=== PATIENT | female | born 1990 | race Caucasian/White ===

== ENCOUNTER 2016-05-20 11:47 | Observation (INO) | payer OTHER ==
[2016-05-20] MEDS ORDERED: ALBUTEROL NEBULIZED 2.5 MG/3 ML INHALATION STA ×2 (12:15→13:40)
[2016-05-20] MEDS ORDERED: IPRATROPIUM 0.5 MG/2.5 ML NEBU INHALATION STA ×2 (12:15→13:40)
[2016-05-20] MEDS ORDERED: SODIUM CHLORIDE 0.9% 1,000 ML IV STA (12:15)
[2016-05-20] MEDS ORDERED: methylPREDNISolone SOD SUCCI 125 MG/2 ML VIAL IV STA (12:15)
[2016-05-20] MEDS ORDERED: SODIUM CHLORIDE 0.9% 500 ML IV STA (12:15)
[2016-05-20] MEDS ORDERED: AZITHROMYCIN 500 MG in SODIUM CHLORIDE 0.9% 250 ML IVPB STA (12:20)
--- NOTE | 2016-05-20 12:36 | ED ---
General Adult HPI - General Chief complaint: Shortness of Breath Stated complaint: ASTHMA, JERRY Time Seen by Provider: 05/20/16 12:14 Source: patient, RN notes reviewed, old records reviewed Mode of arrival: ambulatory Limitations: no limitations - History of Present Illness Initial comments: This is a 25-year-old female coming in [place] for severe shortness of breath cough and congestion, severe asthma history of asthma. No chest pain. No fevers. No travel history. No significant sick contacts or recent hospitalizations. Patient's nerve and prior elevated. She is not taking breathing treatments at home - Related Data Home Medications Medication Instructions Recorded Confirmed Hydrochlorothiazide [Hydrodiuril] 25 mg PO DAILY 03/14/16 05/20/16 Albuterol Inhaler [Ventolin Hfa 2 puff INHALATION RT-Q6H PRN 05/20/16 05/20/16 Inhaler] Albuterol Nebulized [Ventolin 2.5 mg INHALATION Q4H PRN 05/20/16 05/20/16 Nebulized] predniSONE 10 mg PO DAILY 05/20/16 05/20/16 predniSONE 15 mg PO HS 05/20/16 05/20/16 Previous Rx's Medication Instructions Recorded Montelukast [Singulair] 10 mg PO HS #30 tab 01/05/16 Doxycycline Hyclate 100 mg PO BID #10 tab 03/16/16 Allergies Allergy/AdvReac Type Severity Reaction Status Date / Time amoxicillin [Amoxicillin] Allergy Severe Rash/Hives Verified 05/20/16 12:15 ciprofloxacin [From Cipro] Allergy Severe Rash/Hives Verified 05/20/16 12:15 ciprofloxacin HCl Allergy Severe Rash/Hives Verified 05/20/16 12:15 [From Cipro] fluticasone propionate Allergy Severe Rash/Hives Verified 05/20/16 12:15 [From Advair Diskus] levofloxacin Allergy Severe Rash/Hives Verified 05/20/16 12:15 Proton Pump Inhibitors Allergy Severe Rash/Hives Verified 05/20/16 12:15 salmeterol xinafoate Allergy Severe Rash/Hives Verified 05/20/16 12:15 [From Advair Diskus] sulfamethoxazole Allergy Intermediate Rash/Hives Verified 05/20/16 12:15 [From Bactrim] trimethoprim [From Bactrim] Allergy Intermediate Rash/Hives Verified 05/20/16 12 :15 ketorolac tromethamine Allergy Anaphylaxis Verified 05/20/16 12:15 [From Toradol] NSAIDS (Non-Steroidal Allergy Anaphylaxis Verified 05/20/16 12:15 Anti-Inflamma zomig Allergy Severe Anaphylaxis Uncoded 05/20/16 11:55 PROPELLE Allergy Unknown Uncoded 05/20/16 11:55 Review of Systems ROS Statement: Those systems with pertinent positive or pertinent negative responses have been documented in the HPI. ROS Other: All systems not noted in ROS Statement are negative. Past Medical History Past Medical History: Asthma, Pneumonia Additional Past Medical History / Comment(s): Other HX: Migraines, sinusitis, palpitaions, pneumonia, seasonal allergies, -induced hypertension. gestational diabetes diabetes ( secondary to steroids during ). History of Any Multi-Drug Resistant Organisms: None Reported Past Surgical History: Section, Tubal Ligation Additional Past Surgical History / Comment(s): 4 nasal polypectomies, 2 C- Sections Past Anesthesia/Blood Transfusion Reactions: No Reported Reaction Past Psychological History: No Psychological Hx Reported Additional Psychological History / Comment(s): and lives in the family home with her children at this time. Her spouse is stationed in [facility] at this time and they are currently seperated and going through a divorce.. 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 She is a lifelong nonsmoker. No significant alcohol use. No recreational drug use. No experience. No extensive travel history. There is a pet dog in the home. Smoking Status: Never smoker Past Alcohol Use History: Rare Past Drug Use History: None Reported - Past Family History Father Family Medical History: Unable to Obtain mother Family Medical History: Unable to Obtain Additional Family Medical History / Comment(s): pt is adopted and does not know family history General Exam Limitations: no limitations General appearance: alert, anxious, in distress Head exam: Present: atraumatic, normocephalic, normal inspection Eye exam: Present: normal appearance, PERRL, EOMI. Absent: scleral icterus, conjunctival injection, periorbital swelling ENT exam: Present: normal exam, mucous membranes moist Neck exam: Present: normal inspection. Absent: tenderness, meningismus, lymphadenopathy Respiratory exam: Present: normal lung sounds bilaterally, respiratory distress , wheezes, decreased breath sounds, prolonged expiratory. Absent: rales, rhonchi, stridor Cardiovascular Exam: Present: normal rhythm, tachycardia, normal heart sounds. Absent: systolic murmur, diastolic murmur, rubs, gallop, clicks GI/Abdominal exam: Present: soft, normal bowel sounds. Absent: distended, tenderness, guarding, rebound, rigid Extremities exam: Present: normal inspection, full ROM, normal capillary refill. Absent: tenderness, pedal edema, joint swelling, calf tenderness Back exam: Present: normal inspection Neurological exam: Present: alert, oriented X3, CN II-XII intact Psychiatric exam: Present: normal affect, normal mood Skin exam: Present: warm, dry, intact, normal color. Absent: rash Course Vital Signs 05/20/16 05/20/16 05/20/16 11:55 12:13 12:20 Temperature 97.8 F Pulse Rate 113 H 111 H Respiratory 28 H 24 Rate Blood Pressure 127/86 O2 Sat by Pulse 92 L Oximetry 05/20/16 05/20/16 05/20/16 12:35 12:51 13:19 Temperature 98.5 F Pulse Rate 126 H 127 H 110 H Respiratory 18 Rate Blood Pressure 131/79 O2 Sat by Pulse 95 Oximetry - Reevaluation(s) Reevaluation #1: 05/20/16 13:42 Patient is without significant improvement after breathing treatment, tachycardia and oxygen level EKG Findings - EKG Comments: EKG Findings:: EKG shows sinus tachycardia rate 105, CO 140, QRS 88, QTC 441 Medical Decision Making - Medical Decision Making 26. ER evaluation shortness of breath cough and congestion history of asthma, patient is compounded asthma exacerbation with pneumonia, patient be admitted for IV antibiotics steroids and breathing treatments - Lab Data Result diagrams: 05/20/16 12:30 05/20/16 12:30 Lab Results 05/20/16 05/20/16 05/20/16 Range/Units 12:30 12:30 12:30 WBC 14.6 H (3.8-10.6) k/uL RBC 5.29 (3.80-5.40) m/uL Hgb 14.8 (11.4-16.0) gm/dL Hct 46.1 H (34.0-46.0) % MCV 87.1 (80.0-100.0) fL MCH 28.1 (25.0-35.0) pg MCHC 32.2 (31.0-37.0) g/dL RDW 14.2 (11.5-15.5) % Plt Count 341 (150-450) k/uL Neutrophils % 83 % Lymphocytes % 10 % Monocytes % 4 % Eosinophils % 1 % Basophils % 0 % Neutrophils # 12.2 H (1.3-7.7) k/uL Lymphocytes # 1.5 (1.0-4.8) k/uL Monocytes # 0.6 (0-1.0) k/uL Eosinophils # 0.2 (0-0.7) k/uL Basophils # 0.0 (0-0.2) k/uL PT (9.0-12.0) sec INR (<1.1) APTT (22.0-30.0) sec Sodium 142 (137-145) mmol/L Potassium 4.0 (3.5-5.1) mmol/L Chloride 107 (98-107) mmol/L Carbon Dioxide 22 (22-30) mmol/L Anion Gap 13 mmol/L BUN 12 (7-17) mg/dL Creatinine 0.68 (0.52-1.04) mg/dL Est GFR (MDRD) Af Amer >60 (>60 ml/min/1.73 sqM) Est GFR (MDRD) Non-Af >60 (>60 ml/min/1.73 sqM) Glucose 89 (74-99) mg/dL Calcium 9.7 (8.4-10.2) mg/dL Magnesium 1.8 (1.6-2.3) mg/dL Total Bilirubin 0.7 (0.2-1.3) mg/dL AST 19 (14-36) U/L ALT 55 H (9-52) U/L Alkaline Phosphatase 64 (38-126) U/L Total Creatine Kinase 71 (30-135) U/L CK-MB (CK-2) 0.4 (0.0-2.4) ng/mL CK-MB (CK-2) Rel Index 0.6 Troponin I <0.012 (0.000-0.034) ng/mL Total Protein 7.6 (6.3-8.2) g/dL Albumin 4.3 (3.5-5.0) g/dL 05/20/16 Range/Units 12:30 WBC (3.8-10.6) k/uL RBC (3.80-5.40) m/uL Hgb (11.4-16.0) gm/dL Hct (34.0-46.0) % MCV (80.0-100.0) fL MCH (25.0-35.0) pg MCHC (31.0-37.0) g/dL RDW (11.5-15.5) % Plt Count (150-450) k/uL Neutrophils % % Lymphocytes % % Monocytes % % Eosinophils % % Basophils % % Neutrophils # (1.3-7.7) k/uL Lymphocytes # (1.0-4.8) k/uL Monocytes # (0-1.0) k/uL Eosinophils # (0-0.7) k/uL Basophils # (0-0.2) k/uL PT 11.1 (9.0-12.0) sec INR 1.1 (<1.1) APTT 22.3 (22.0-30.0) sec Sodium (137-145) mmol/L Potassium (3.5-5.1) mmol/L Chloride (98-107) mmol/L Carbon Dioxide (22-30) mmol/L Anion Gap mmol/L BUN (7-17) mg/dL Creatinine (0.52-1.04) mg/dL Est GFR (MDRD) Af Amer (>60 ml/min/1.73 sqM) Est GFR (MDRD) Non-Af (>60 ml/min/1.73 sqM) Glucose (74-99) mg/dL Calcium (8.4-10.2) mg/dL Magnesium (1.6-2.3) mg/dL Total Bilirubin (0.2-1.3) mg/dL AST (14-36) U/L ALT (9-52) U/L Alkaline Phosphatase (38-126) U/L Total Creatine Kinase (30-135) U/L CK-MB (CK-2) (0.0-2.4) ng/mL CK-MB (CK-2) Rel Index Troponin I (0.000-0.034) ng/mL Total Protein (6.3-8.2) g/dL Albumin (3.5-5.0) g/dL - Radiology Data Radiology results: report reviewed (Chest x-ray is positive for pneumonia), image reviewed Critical Care Time Critical Care Time: Yes Total Critical Care Time: 31 Disposition Clinical Impression: Shortness of breath, Asthma with exacerbation, Acute exacerbation of chronic obstructive airways disease, Acute respiratory failure, Status asthmaticus, Hypoxia Disposition: ADMITTED IP TO THIS HOSP Condition: Fair
[2016-05-20 12:45] LABS: Basophils % (A) 0 %; CHCM 33.3; Eosinophils # (A) 0.2 k/uL (0-0.7); Eosinophils % (A) 1 %; HCT 46.1 % (34.0-46.0); HDW 2.59; HGB 14.8 gm/dL (11.4-16.0); Luc # (Auto) 0.15; Luc % (Auto) 1; Lymphocytes # (A) 1.5 k/uL (1.0-4.8); Lymphocytes % (A) 10 %; MCH 28.1 pg (25.0-35.0); MCHC 32.2 g/dL (31.0-37.0); MCV 87.1 fL (80.0-100.0); Mean Platelet Volume 6.9; Monocytes # (A) 0.6 k/uL (0-1.0); Monocytes % (A) 4 %; Neutrophils # (A) 12.2 k/uL (1.3-7.7); Neutrophils % (A) 83 %; RBC 5.29 m/uL (3.80-5.40); RDW 14.2 % (11.5-15.5); WBC 14.6 k/uL (3.8-10.6); WBC (Perox) 14.84
[2016-05-20] MEDS: MAGNESIUM SULFATE-D5W PMX 1 GM in DEXTROSE/WATER 1 100ML.BAG IVPB SCH ×2 (12:50→13:55)
[2016-05-20 12:56] LABS: ALT 55 U/L (9-52); AST 19 U/L (14-36); Alkaline Phosphatase 64 U/L (38-126); Anion Gap 13 mmol/L; Blood Urea Nitrogen 12 mg/dL (7-17); Calcium 9.7 mg/dL (8.4-10.2); Carbon Dioxide 22 mmol/L (22-30); Chloride 107 mmol/L (98-107); Glucose 89 mg/dL (74-99); Magnesium 1.8 mg/dL (1.6-2.3); Non-African American GFR(MDRD) >60 (>60 ml/min/1.73 sqM); Sodium 142 mmol/L (137-145); Total Bilirubin 0.7 mg/dL (0.2-1.3); Total Protein 7.6 g/dL (6.3-8.2)
[2016-05-20 13:13] LABS: Creatine Kinase 71 U/L (30-135)
--- NOTE | 2016-05-20 13:17 | XR ---
EXAMINATION TYPE: XR chest 1V portable DATE OF EXAM: 05/20/2016 1:05 PM Comparison: 03/14/2016 Clinical History: 25-year-old female with sob Findings: The cardiomediastinal silhouette, aorta, and pulmonary vasculature are within normal limits. There is some patchy peripheral left basilar opacity. Otherwise, lungs and pleural spaces are clear. Impression: Some patchy left basilar atelectasis or early infiltrate. Correlate with patient's symptoms.
[2016-05-20 13:22] LABS: INR 1.1 (<1.1); Partial Thromboplastin Time 22.3 sec (22.0-30.0); Prothrombin Time 11.1 sec (9.0-12.0)
[2016-05-20 13:26] LABS: Creatine Kinase MB 0.4 ng/mL (0.0-2.4); Troponin I <0.012 ng/mL (0.000-0.034)
[2016-05-20] MEDS ORDERED: LEVOFLOXACIN 750MG-D5W PMX 750 MG in DEXTROSE/WATER 1 150ML.BAG IVPB STA (13:40)
[2016-05-20] MEDS ORDERED: PNEUMONIA PROTOCOL UTILIZED 1 EACH MISC PO PRN (13:40)
[2016-05-20] MEDS: SODIUM CHLORIDE 0.9% 1,000 ML IV SCH ×2 (14:45→21:55)
[2016-05-20] MEDS: IPRATROPIUM-ALBUTEROL 3 ML NEB INHALATION SCH ×2 (17:10→20:39)
[2016-05-20] MEDS: ACETAMINOPHEN TAB 325 MG TAB PO PRN (17:43)
[2016-05-20] MEDS: HYDROCHLOROTHIAZIDE 25 MG TAB PO SCH (20:30)
--- NOTE | 2016-05-20 21:03 | HP ---
DATE OF ADMISSION: 05/20/2016 PRESENTING COMPLAINT: Short of breath, wheezing. HISTORY OF PRESENTING COMPLAINT: This is a 25-year-old patient who follows with Dr. Lo. She has a long-standing history of asthma. Patient also has a history of migraines, sinusitis, seasonal allergies. For a quite a few days she has been having increasing sinus trouble. Asthma has been bothering her. Not responding to outpatient treatment, decided to come in. Very minimal sputum production. No fever. Appetite is fair. REVIEW OF SYSTEMS: CONSTITUTIONAL: Tired. HEENT: Occasional headache. RESPIRATORY: As above. CARDIOVASCULAR: None. GASTROINTESTINAL: None. GENITOURINARY: None. MUSCULOSKELETAL: None. DERMATOLOGIC: None. HEMATOLOGIC: None. LYMPHATICS: None. PSYCHIATRY: Some anxiety. NEUROLOGICAL: None. PAST MEDICAL HISTORY: 1. Asthma. 2. Migraines. 3. Sinusitis. 4. Seasonal allergies. 5. -induced hypertension. 6. Gestational diabetes. PAST SURGICAL HISTORY: 1. . 2. Tubal ligation. 3. Nasal polypectomy. SOCIAL HISTORY: The patient has children at home. Her has also got a cold. No smoking. Alcohol rarely. FAMILY HISTORY: Patient is adopted. HOME MEDICATIONS: 1. Prednisone 15 mg at bedtime. 2. Ventolin 2.5 q.4 p.r.n. 3. Ventolin HFA 2 puffs q.6 p.r.n. 4. Prednisone 10 mg daily. 5. Singulair 10 mg at bedtime. 6. Hydrochlorothiazide 25 mg p.o. daily. 7. Doxycycline 100 mg p.o. b.i.d. ALLERGIES: MULTIPLE, includin. PROPELLE. 2. ZOMIG. 3. NSAIDS. 4. KETOROLAC. 5. BACTRIM. 6. ADVAIR. 7. PPIS. 8. CIPRO. 9. AMOXICILLIN. PHYSICAL EXAMINATION: VITAL SIGNS ON PRESENTATION: Temperature 97.8, pulse 113, respiration 28, blood pressure 127/86, pulse ox 92% on room air. GENERAL APPEARANCE: Average build. Lying in bed, tired-appearing. EYES: Pupils equal. Conjunctivae normal. HEENT: External appearance of nose and ears normal. Oral cavity normal. NECK: JVD not raised. Mass not palpable. RESPIRATORY: Effort increased. LUNGS: Prolonged expiration and wheezing. CARDIOVASCULAR: First and second sounds normal. No edema. ABDOMEN: Soft, non-tender. Liver and spleen not palpable. LYMPHATIC: No lymph node palpable in neck or axillae. PSYCHIATRIC: Alert and oriented x3. Mood and affect slightly anxious-appearing. NEUROLOGICAL: Pupils equal. Cranial nerves grossly intact. Power and sensation grossly intact. INVESTIGATIONS: White count 14.6, hemoglobin 14.8. Potassium 4. BUN and creatinine are normal. ASSESSMENT: 1. Acute exacerbation of moderate persistent asthma with possible acute bronchitis. 2. Leukocytosis from steroids. 3. Obesity; body mass index more than 35. PLAN: Continue with bronchodilators, steroids, Lovenox, Singulair. Care was discussed with the patient. Will also add Claritin-D for her sinusitis that is bothering her. Patient encouraged to sleep, as she has not been sleeping well, resulting in headaches.
[2016-05-20] MEDS: MELATONIN 3 MG TABLET PO SCH (21:40)
[2016-05-20] MEDS: MONTELUKAST 10 MG TAB PO SCH (21:40)
[2016-05-20] MEDS: LORATADINE-PSEUDOEPH 5-120 MG 1 EACH TAB.ER.12H PO SCH (21:41)
[2016-05-20] MEDS: methylPREDNISolone SOD SUCCI 40 MG/ML 1 ML VIAL IV SCH (21:42)
[2016-05-20] MEDS: ENOXAPARIN 40 MG/0.4 ML SYRINGE SQ SCH (22:00)
[2016-05-21] MEDS: methylPREDNISolone SOD SUCCI 40 MG/ML 1 ML VIAL IV SCH ×3 (01:18→17:52)
[2016-05-21] MEDS: ACETAMINOPHEN TAB 325 MG TAB PO PRN ×4 (01:54→22:25)
[2016-05-21] MEDS ORDERED: IPRATROPIUM-ALBUTEROL 3 ML NEB INHALATION PRN (05:35)
[2016-05-21] MEDS ORDERED: ALBUTEROL NEBULIZED 2.5 MG/3 ML INHALATION PRN (05:41)
[2016-05-21] MEDS: IPRATROPIUM-ALBUTEROL 3 ML NEB INHALATION SCH ×5 (05:52→21:36)
[2016-05-21] MEDS: ENOXAPARIN 40 MG/0.4 ML SYRINGE SQ SCH (08:15)
--- NOTE | 2016-05-21 08:21 | XR ---
EXAMINATION TYPE: XR chest 2V DATE OF EXAM: 05/21/2016 7:22 AM COMPARISON: Prior chest x-ray April HISTORY: Pneumonia TECHNIQUE: Frontal and lateral views of the chest are obtained. FINDINGS: There may be some minimal patchy density in the lingula. No significant interval change. IMPRESSION: There may be some lingular pneumonia or atelectatic change.
[2016-05-21] MEDS: LORATADINE-PSEUDOEPH 5-120 MG 1 EACH TAB.ER.12H PO SCH ×2 (08:54→22:22)
[2016-05-21] MEDS: HYDROCHLOROTHIAZIDE 25 MG TAB PO SCH (08:54)
[2016-05-21] MEDS ORDERED: AZITHROMYCIN 500 MG TAB PO SCH (12:00)
--- NOTE | 2016-05-21 13:17 | P.CNPUL ---
History of Present Illness Consult date: 05/21/16 Reason for consult: dyspnea History of present illness: 25-year-old female patient, known history of severe persistent bronchial asthma ,steroid dependent in addition to history of nasal polyposis, aspirin sensitivity, and chronic of a metal ALLERGIES. This patient has been difficult to control asthma for the past 3-4 years. She has been requiring steroids on and off and more recently she's been maintained on a higher dose of prednisone a dose of 20 mg by mouth daily. Unfortunately she has been having issues with her medication coverage especially with her Medicaid insurance. The last I heard is that the patient was unable to see me in the office. She was also unable to continue her maintenance inhalers which included Dulera and she was also unable to continue the Xolair injections treatment that she was being off it for many years. Cholesterol her treatment was approximately 6 months ago. Yesterday, the patient came into the emergency department because of worsening shortness of breath and increased asthma activity. She was having increased cough chest tightness and wheezing and for that reason she was admitted. Chest x-ray showed also limited infiltration of the right lung base which raises suspicion for an underlying pneumonia. She is currently on accommodation Rocephin and Zithromax. She was placed on IV Solu-Medrol which has been tapered down to 40 mg every 6 hours. She is also on albuterol and Atrovent about treatments around the clock. She is feeling slightly better. No sinus pressure. No nasal drainage at this point. No epistaxis. No skin rashes. No reflux. She has gained significant amount of weight as the patient has required on and off steroids for the past 3-4 years. She is compliant to her treatment. She is a nonsmoker. She does however have severe asthmatic disorder. Review of Systems For review of system was done and the positive findings are almost above in history of present illness Past Medical History Past Medical History: Asthma, Pneumonia Additional Past Medical History / Comment(s): Other HX: Migraines, sinusitis, palpitaions, pneumonia, seasonal allergies, -induced hypertension. gestational diabetes diabetes ( secondary to steroids during ). Severe persistent bronchial asthma, nasal polyposis, aspirin sensitivity, atopic disease with known environmental ALLERGIES History of Any Multi-Drug Resistant Organisms: None Reported Past Surgical History: Section, Tubal Ligation Additional Past Surgical History / Comment(s): 4 nasal polypectomies, 2 C- Sections Past Anesthesia/Blood Transfusion Reactions: No Reported Reaction Past Psychological History: No Psychological Hx Reported Additional Psychological History / Comment(s): and lives in the family home with her children at this time. Her spouse is stationed in [facility] at this time and they are currently seperated and going through a divorce.. 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 She is a lifelong nonsmoker. No significant alcohol use. No recreational drug use. No experience. No extensive travel history. There is a pet dog in the home. Smoking Status: Never smoker Past Alcohol Use History: Rare Past Drug Use History: None Reported - Past Family History Father Family Medical History: Unable to Obtain mother Family Medical History: Unable to Obtain Additional Family Medical History / Comment(s): pt is adopted and does not know family history Medications and Allergies Home Medications Medication Instructions Recorded Confirmed Type Hydrochlorothiazide [Hydrodiuril] 25 mg PO DAILY 03/14/16 05/20/16 History Albuterol Inhaler [Ventolin Hfa 2 puff INHALATION RT-Q6H PRN 05/20/16 05/20/16 History Inhaler] Albuterol Nebulized [Ventolin 2.5 mg INHALATION Q4H PRN 05/20/16 05/20/16 History Nebulized] predniSONE 10 mg PO DAILY 05/20/16 05/20/16 History predniSONE 15 mg PO HS 05/20/16 05/20/16 History Allergies Allergy/AdvReac Type Severity Reaction Status Date / Time amoxicillin [Amoxicillin] Allergy Severe Rash/Hives Verified 05/20/16 12:15 ciprofloxacin [From Cipro] Allergy Severe Rash/Hives Verified 05/20/16 12:15 ciprofloxacin HCl Allergy Severe Rash/Hives Verified 05/20/16 12:15 [From Cipro] fluticasone propionate Allergy Severe Rash/Hives Verified 05/20/16 12:15 [From Advair Diskus] levofloxacin Allergy Severe Rash/Hives Verified 05/20/16 12:15 Proton Pump Inhibitors Allergy Severe Rash/Hives Verified 05/20/16 12:15 salmeterol xinafoate Allergy Severe Rash/Hives Verified 05/20/16 12:15 [From Advair Diskus] sulfamethoxazole Allergy Intermediate Rash/Hives Verified 05/20/16 12:15 [From Bactrim] trimethoprim [From Bactrim] Allergy Intermediate Rash/Hives Verified 05/20/16 12 :15 ketorolac tromethamine Allergy Anaphylaxis Verified 05/20/16 12:15 [From Toradol] NSAIDS (Non-Steroidal Allergy Anaphylaxis Verified 05/20/16 12:15 Anti-Inflamma zomig Allergy Severe Anaphylaxis Uncoded 05/20/16 11:55 PROPELLE Allergy Unknown Uncoded 05/20/16 11:55 Physical Exam Vitals: Vital Signs Temp Pulse Pulse Resp BP BP Pulse Ox 05/21/16 12:02 98.2 F 73 16 138/89 95 05/21/16 07:00 97.7 F 95 20 140/84 95 05/21/16 05:54 88 05/21/16 05:44 88 05/20/16 21:36 97.7 F 102 H 20 140/66 93 L 05/20/16 21:02 114 H 05/20/16 20:41 110 H 05/20/16 18:37 94 L 05/20/16 18:34 110 H 24 05/20/16 18:22 98.8 F 110 H 24 135/78 93 L 05/20/16 17:30 112 H 05/20/16 17:12 97.9 F 105 H 18 110/79 98 05/20/16 17:10 108 H 05/20/16 16:02 98.4 F 94 18 113/71 95 05/20/16 14:43 98.4 F 108 H 18 120/64 95 05/20/16 14:05 110 H 18 143/83 95 Intake and Output 05/20/16 05/21/16 05/21/16 22:59 06:59 14:59 Other: # Voids 2 1 1 Head exam was generally normal. There was no scleral icterus or corneal arcus. Mucous membranes were moist. Nasal sinuses are quite patent at this point. There is some crowding of the posterior oropharynx. There is no thrush. No facial pain. No purulent drainage that can be witnessed on extraction. Lungs sounds are diminished and there is diffuse extremity wheezes throughout the lung field bilaterally. There is also prolongation of the expiratory phase of breathing.Cardiac exam revealed the PMI to be normally situated and sized. The rhythm was regular and no extrasystoles were noted during several minutes of auscultation. The first and second heart sounds were normal and physiologic splitting of the second heart sound was noted. There were no murmurs, rubs, clicks, or gallops. Normal abdomenAbdominal exam revealed normal bowel sounds. The abdomen was soft, non-tender, and without masses, organomegaly, or appreciable enlargement of the abdominal aorta.Examination of the extremities revealed easily palpable radial, femoral and pedal pulses. There was no cyanosis , clubbing or edema. Results - Laboratory Findings CBC and BMP: 05/20/16 12:30 05/20/16 12:30 PT/INR, D-dimer PT 11.1 sec (9.0-12.0) 05/20/16 12:30 INR 1.1 (<1.1) 05/20/16 12:30 - Diagnostic Findings Chest x-ray: image reviewed Assessment and Plan Plan: Impression 1 exacerbation of severe persistent bronchial asthma with secondary shortness of breath. 2 suspected right lower lobe pneumonia 3 nasal polyposis 4 aspirin/nonsteroidal anti-inflammatory medication sensitivity 5 chronic atopic disease/OR medical ALLERGIES 6 obesity partly related to systemic steroids 7 chronic migraines 8 history of the gestational diabetes Plan I need to work with this patient's insurance and case management to make sure she can be adequately covered for her maintenance inhalers. Based on my further investigation I think that patient should be able to get covered for Dulera. I'm also going to work on approving this patient for Xolair again in the future. Meanwhile she'll maintain on Singulair. She'll be treated with IV Solu Medrol for now with intention of tapering her back to prednisone over the next few days. Continue Rocephin and Zithromax for now. Ultimately, this patient may benefit from aspirin desensitization and this can be done in a tertiary care center such as [facility]. This will be discussed later on outpatient basis. We'll continue to follow.
[2016-05-21] MEDS ORDERED: LEVOFLOXACIN 750MG-D5W PMX 750 MG in DEXTROSE/WATER 1 150ML.BAG IVPB SCH (13:40)
[2016-05-21] MEDS: MELATONIN 3 MG TABLET PO SCH (22:22)
[2016-05-21] MEDS: MONTELUKAST 10 MG TAB PO SCH (22:22)
[2016-05-22] MEDS: methylPREDNISolone SOD SUCCI 40 MG/ML 1 ML VIAL IV SCH ×3 (01:22→16:46)
--- NOTE | 2016-05-22 08:17 | PN ---
DATE OF SERVICE: 05/21/2016 PRESENTING COMPLAINT: Asthma exacerbation and possible pneumonia. Patient feels better. Actually slipped a bit. Cough is decreasing, decreased sputum output. Did tolerate some diet. Has been up to the bathroom. Review systems done for constitutional, cardiovascular, GI, pulmonary; relevant findings as above. Current medications are reviewed that include IV ceftriaxone and Solu-Medrol, Claritin D. On examination, temperature 98.2, pulse 73, respirations 16, blood pressure 130/89, pulse ox 95% on room air. GENERAL APPEARANCE: Sitting up, not in distress. EYES: Pupils equal. Conjunctivae normal. NECK: JVD not raised. Mass not palpable. RESPIRATORY: Effort increased. LUNGS: Improved air entry. Decreased wheezing. CARDIOVASCULAR: First and second sounds normal. No edema. ABDOMEN: Soft, nontender. Liver and spleen not palpable. PSYCHIATRY: Alert and oriented x3. Mood and affect normal. INVESTIGATIONS: No blood work from today. Blood cultures are negative. ASSESSMENT: 1. Acute exacerbation of moderate persistent asthma with possible pneumonia, suspect gram-negative orgasm. 2. Leukocytosis from steroids. 3. Obesity, body mass index of more than 35. PLAN: Continue current medication and treatment plan. Follow with Dr. Christina.
[2016-05-22] MEDS: HYDROCHLOROTHIAZIDE 25 MG TAB PO SCH (09:34)
[2016-05-22] MEDS: LORATADINE-PSEUDOEPH 5-120 MG 1 EACH TAB.ER.12H PO SCH (09:38)
[2016-05-22] MEDS: SODIUM CHLORIDE 0.9% 1,000 ML IV SCH (09:40)
[2016-05-22] MEDS: ENOXAPARIN 40 MG/0.4 ML SYRINGE SQ SCH (09:40)
[2016-05-22] MEDS: IPRATROPIUM-ALBUTEROL 3 ML NEB INHALATION SCH ×4 (09:44→20:32)
[2016-05-22 10:16] VITALS: TEMP 98.3
[2016-05-22] MEDS: ACETAMINOPHEN TAB 325 MG TAB PO PRN (11:15)
[2016-05-22 15:39] VITALS: BP 135/79; PULSE 86; RESP 16
--- NOTE | 2016-05-22 17:17 | P.PN ---
Subjective 25-year-old female patient, known history of severe persistent bronchial asthma ,steroid dependent in addition to history of nasal polyposis, aspirin sensitivity, and chronic of a metal ALLERGIES. This patient has been difficult to control asthma for the past 3-4 years. She has been requiring steroids on and off and more recently she's been maintained on a higher dose of prednisone a dose of 20 mg by mouth daily. Unfortunately she has been having issues with her medication coverage especially with her Medicaid insurance. The last I heard is that the patient was unable to see me in the office. She was also unable to continue her maintenance inhalers which included Dulera and she was also unable to continue the Xolair injections treatment that she was being off it for many years. Cholesterol her treatment was approximately 6 months ago. The patient came into the emergency department because of worsening shortness of breath and increased asthma activity. She was having increased cough chest tightness and wheezing and for that reason she was admitted. Chest x-ray showed also limited infiltration of the right lung base which raises suspicion for an underlying pneumonia. She is currently on accommodation Rocephin and Zithromax. She was placed on IV Solu-Medrol which has been tapered down to 40 mg every 6 hours. She is also on albuterol and Atrovent about treatments around the clock. She is seen again today 05/22/2016 in follow-up. She is awake and alert in no acute distress. She's been up ambulating in the room. She is anxious to go home. She denies any worsening shortness of breath, cough or congestion. He is maintaining good O2 saturations in the upper 90s on room air. She's been afebrile. The cultures revealed no growth to date. Objective - Vital Signs Vital signs: Vital Signs Temp 98.3 F 05/22/16 08:20 Pulse 86 05/22/16 11:15 Resp 16 05/22/16 16:00 BP 135/79 05/22/16 11:15 Pulse Ox 98 05/22/16 11:15 Intake & Output 05/21/16 05/22/16 05/22/16 18:59 06:59 18:59 Intake Total 880 750 Balance 880 750 Intake: IV 880 Sodium Chloride 0.9% 1, 880 000 ml @ 10 mls/hr IV . Q24H [place] Rx#:[id number] Oral 750 Other: # Voids 2 1 1 - Exam GENERAL EXAM: Alert, active, comfortable in no apparent distress. HEAD: Normocephalic. EYES: Normal reaction of pupils, equal size. NOSE: Clear with pink turbinates. THROAT: No erythema or exudates. NECK: No masses, no JVD. CHEST: No chest wall deformity. LUNGS: Equal air entry with faint end expiratory wheeze. CVS: S1 and S2 normal with no audible murmurs, regular rhythm. ABDOMEN: No hepatosplenomegaly, normal bowel sounds, no guarding or rigidity. SPINE: No scoliosis or deformity SKIN: No rashes CENTRAL NERVOUS SYSTEM: No focal deficits, tone is normal in all 4 extremities. Extremities: There is trace peripheral edema. No clubbing, no cyanosis. Peripheral pulses are intact. - Labs CBC & Chem 7: 05/20/16 12:30 05/20/16 12:30 Assessment and Plan Plan: Impression 1 exacerbation of severe persistent bronchial asthma with secondary shortness of breath. 2 suspected right lower lobe pneumonia 3 nasal polyposis 4 aspirin/nonsteroidal anti-inflammatory medication sensitivity 5 chronic atopic disease/[place] medical ALLERGIES 6 obesity partly related to systemic steroids 7 chronic migraines 8 history of the gestational diabetes Plan The patient was seen and evaluated by Dr. Christina. We did arrange for her Dulera which is covered by her [facility] health insurance. She has her other pulmonary medications. She is cleared for discharge from the pulmonary standpoint. She'll be on a prednisone taper starting at 40 mg daily for 4 days. Complete her course of antibiotics. She'll follow-up in our office in 1- 2 weeks' time. She is encouraged to call sooner with any recurrence of symptoms or other questions or concerns.
--- NOTE | 2016-05-23 08:40 | DS ---
DATE OF ADMISSION: 05/20/2016 DATE OF DISCHARGE: 05/22/2016 FINAL DIAGNOSIS(ES): 1. Acute exacerbation of moderate persistent asthma with possible pneumonia, suspect gram-negative orgasm. 2. Leukocytosis from steroids. 3. Obesity, body mass index more than 35. HOSPITAL COURSE: This patient presented with exacerbation of asthma, doing much better at the time of discharge. On exam, lungs improved. Minimal wheezing. Consultation with Dr. Christina. DISCHARGE MEDICATIONS: 1. Singulair 10 mg q.h.s. 2. Hydrochlorothiazide 25 mg a day. 3. Ventolin HFA 2 puffs q.6 p.r.n. 4. Claritin-D 1 tablets q.12, 10 tablets. 5. Prednisone 40 mg for 4 days. 6. Dulera as prescribed. Follow-up with Dr. Lo in 3 days, Dr. Christina in 10 days.
== END 2016-05-22 20:20 | disposition home or self-care (01) ==
LOC: EC 11:47 → INTOOBSV 13:40 → 4MS4W 13:40 → 6PED 17:35
PROVIDERS: ADMIT Hospitalist; ATTEND Hospitalist
DX: J45.42 Moderate persistent asthma with status asthmaticus (principal); D72.829 Elevated white blood cell count, unspecified; T38.0X5A Adverse effect of glucocorticoids and synthetic analogues, initial encounter; J33.9 Nasal polyp, unspecified; G43.909 Migraine, unspecified, not intractable, without status migrainosus; Z86.32 Personal history of gestational diabetes; Z79.52 Long term (current) use of systemic steroids; Z79.899 Other long term (current) drug therapy; J30.2 Other seasonal allergic rhinitis; Z88.6 Allergy status to analgesic agent; Z88.3 Allergy status to other anti-infective agents; Z88.0 Allergy status to penicillin; Z88.2 Allergy status to sulfonamides; Z88.8 Allergy status to other drugs, medicaments and biological substances; Z87.01 Personal history of pneumonia (recurrent)
CPT/HCPCS: 99291; 96365; 96366; 96367; 96375; 96361; 36415; 94640 ×4; 94644; 93005; 80053; 82550; 82553; 83605; 83735; 84484; 85025; 85610; 85730; 87040; 71010; 71020; G0378 ×3; J2920 ×3; J2930; J0456; J0696 ×3; J3475; 96376

== ENCOUNTER 2016-11-25 10:54 | Inpatient (IN) | payer OTHER ==
[2016-11-25] MEDS ORDERED: IPRATROPIUM-ALBUTEROL 3 ML NEB INHALATION STA ×2 (11:22→11:36)
[2016-11-25] MEDS ORDERED: MAGNESIUM SULFATE-D5W PMX 1 GM in DEXTROSE/WATER 1 100ML.BAG IVPB STA (11:25)
[2016-11-25] MEDS ORDERED: methylPREDNISolone SOD SUCCI 125 MG/2 ML VIAL IV STA (11:25)
--- NOTE | 2016-11-25 11:32 | ED ---
General Adult HPI - General Chief complaint: Shortness of Breath Stated complaint: asthma attack Time Seen by Provider: 11/25/16 11:09 Source: patient, RN notes reviewed Mode of arrival: ambulatory Limitations: no limitations - History of Present Illness Initial comments: Patient is a pleasant 76-year-old female presenting to the emergency department complaining of difficulty in breathing. Onset of symptoms was a week ago, symptoms worsen today. Patient also has back discomfort today. Patient states dyspnea is similar to chronic asthma. Patient did take her breathing treatments today with only some improvement. Patient states she does not usually get back discomfort. Patient states discomfort is not severe and does not need medication for it. No fevers. Patient does have dry cough. No leg pain or leg swelling. - Related Data Home Medications Medication Instructions Recorded Confirmed Albuterol Inhaler [Ventolin Hfa 2 puff INHALATION RT-Q6H PRN 05/20/16 11/25/16 Inhaler] Albuterol Nebulized [Ventolin 2.5 mg INHALATION Q4H PRN 05/20/16 11/25/16 Nebulized] Acetaminophen [Tylenol] 650 mg PO Q6H PRN 11/25/16 11/25/16 Pseudoephedrine 12Hr [Sudafed 12Hr] 120 mg PO Q12H PRN 11/25/16 11/25/16 diphenhydrAMINE HCL [Benadryl] 25 mg PO HS PRN 11/25/16 11/25/16 predniSONE 10 - 40 mg PO DAILY 11/25/16 11/25/16 Previous Rx's Medication Instructions Recorded Montelukast [Singulair] 10 mg PO HS #30 tab 01/05/16 Allergies Allergy/AdvReac Type Severity Reaction Status Date / Time amoxicillin [Amoxicillin] Allergy Severe Rash/Hives Verified 11/25/16 11:17 ciprofloxacin [From Cipro] Allergy Severe Rash/Hives Verified 11/25/16 11:17 ciprofloxacin HCl Allergy Severe Rash/Hives Verified 11/25/16 11:17 [From Cipro] fluticasone propionate Allergy Severe Rash/Hives Verified 11/25/16 11:17 [From Advair Diskus] levofloxacin Allergy Severe Rash/Hives Verified 11/25/16 11:17 Proton Pump Inhibitors Allergy Severe Rash/Hives Verified 11/25/16 11:17 salmeterol xinafoate Allergy Severe Rash/Hives Verified 11/25/16 11:17 [From Advair Diskus] sulfamethoxazole Allergy Intermediate Rash/Hives Verified 11/25/16 11:17 [From Bactrim] trimethoprim [From Bactrim] Allergy Intermediate Rash/Hives Verified 11/25/16 11 :17 ketorolac tromethamine Allergy Anaphylaxis Verified 11/25/16 11:17 [From Toradol] NSAIDS (Non-Steroidal Allergy Anaphylaxis Verified 11/25/16 11:17 Anti-Inflamma zomig Allergy Severe Anaphylaxis Uncoded 11/25/16 11:01 PROPELLE Allergy Unknown Uncoded 11/25/16 11:01 Review of Systems ROS Statement: Those systems with pertinent positive or pertinent negative responses have been documented in the HPI. ROS Other: All systems not noted in ROS Statement are negative. Constitutional: Denies: fever Eyes: Denies: eye pain ENT: Denies: ear pain Respiratory: Reports: cough, dyspnea Cardiovascular: Denies: chest pain Endocrine: Reports: fatigue Gastrointestinal: Denies: abdominal pain Genitourinary: Denies: dysuria Musculoskeletal: Reports: back pain Skin: Denies: rash Neurological: Denies: weakness Past Medical History Past Medical History: Asthma, Pneumonia Additional Past Medical History / Comment(s): Other HX: Migraines, sinusitis, palpitaions, pneumonia, seasonal allergies, -induced hypertension. gestational diabetes diabetes ( secondary to steroids during ). Severe persistent bronchial asthma, nasal polyposis, aspirin sensitivity, atopic disease with known environmental ALLERGIES History of Any Multi-Drug Resistant Organisms: None Reported Past Surgical History: Section, Tubal Ligation Additional Past Surgical History / Comment(s): 4 nasal polypectomies, 2 C- Sections Past Anesthesia/Blood Transfusion Reactions: No Reported Reaction Past Psychological History: No Psychological Hx Reported Smoking Status: Never smoker Past Alcohol Use History: Occasional Past Drug Use History: None Reported - Past Family History Father Family Medical History: Unable to Obtain mother Family Medical History: Unable to Obtain Additional Family Medical History / Comment(s): pt is adopted and does not know family history General Exam Limitations: no limitations General appearance: alert, in no apparent distress Head exam: Present: atraumatic Eye exam: Present: normal appearance, PERRL ENT exam: Present: normal oropharynx Neck exam: Present: normal inspection Respiratory exam: Present: respiratory distress, wheezes, decreased breath sounds Cardiovascular Exam: Present: regular rate, normal rhythm Expanded Peripheral pulses: 2+: Radial (R), Radial (L), Dorsalis Pedis (R), Dorsalis Pedis (L) GI/Abdominal exam: Present: soft. Absent: tenderness Back exam: Present: normal inspection. Absent: tenderness Neurological exam: Present: alert Psychiatric exam: Present: normal affect, normal mood Skin exam: Present: normal color Course Vital Signs 11/25/16 11/25/16 11/25/16 10:59 11:15 11:26 Temperature 97.5 F L Pulse Rate 130 H 104 H 110 H Respiratory 26 H 24 Rate Blood Pressure 142/94 O2 Sat by Pulse 88 L 90 L Oximetry 11/25/16 11/25/16 11/25/16 11:31 11:35 11:44 Temperature Pulse Rate 122 H 120 H 120 H Respiratory Rate Blood Pressure O2 Sat by Pulse Oximetry - Reevaluation(s) Reevaluation #1: 11/25/16 14:00 Patient does not meet sepsis criteria. Tachycardia and tachypnea are felt to be related to asthma. EKG Findings - EKG Comments: EKG Findings:: Normal sinus rhythm 97. HI 112. QRS 88. QT 350. QTC 444. Normal axis. Normal QRS. Normal ST-T. Medical Decision Making - Medical Decision Making Patient reexamined and significantly improved. Patient does have continued wheezing and decreased air exchange. Heart rate remains between 100- 120. Patient updated on results. Dr. sam has been paged for admission for Dr. Germain. - Lab Data Result diagrams: 11/25/16 11:56 11/25/16 11:56 Lab Results 11/25/16 11/25/16 11/25/16 Range/Units 11:56 11:56 11:56 WBC 17.1 H (3.8-10.6) k/uL RBC 5.44 H (3.80-5.40) m/uL Hgb 14.5 (11.4-16.0) gm/dL Hct 46.4 H (34.0-46.0) % MCV 85.2 (80.0-100.0) fL MCH 26.6 (25.0-35.0) pg MCHC 31.3 (31.0-37.0) g/dL RDW 15.2 (11.5-15.5) % Plt Count 368 (150-450) k/uL Neutrophils % 77 % Lymphocytes % 11 % Monocytes % 6 % Eosinophils % 4 % Basophils % 0 % Neutrophils # 13.3 H (1.3-7.7) k/uL Lymphocytes # 1.9 (1.0-4.8) k/uL Monocytes # 1.1 H (0-1.0) k/uL Eosinophils # 0.7 (0-0.7) k/uL Basophils # 0.0 (0-0.2) k/uL PT (9.0-12.0) sec INR (<1.2) APTT (22.0-30.0) sec D-Dimer (<0.60) mg/L FEU Sodium 140 (137-145) mmol/L Potassium 4.1 (3.5-5.1) mmol/L Chloride 107 (98-107) mmol/L Carbon Dioxide 23 (22-30) mmol/L Anion Gap 10 mmol/L BUN 11 (7-17) mg/dL Creatinine 0.71 (0.52-1.04) mg/dL Est GFR (MDRD) Af Amer >60 (>60 ml/min/1.73 sqM) Est GFR (MDRD) Non-Af >60 (>60 ml/min/1.73 sqM) Glucose 85 (74-99) mg/dL Calcium 9.5 (8.4-10.2) mg/dL Total Bilirubin 0.5 (0.2-1.3) mg/dL AST 25 (14-36) U/L ALT 48 (9-52) U/L Alkaline Phosphatase 52 (38-126) U/L Total Creatine Kinase 64 (30-135) U/L CK-MB (CK-2) 0.3 (0.0-2.4) ng/mL CK-MB (CK-2) Rel Index 0.5 Troponin I <0.012 (0.000-0.034) ng/mL Total Protein 7.2 (6.3-8.2) g/dL Albumin 4.2 (3.5-5.0) g/dL 11/25/16 Range/Units 11:56 WBC (3.8-10.6) k/uL RBC (3.80-5.40) m/uL Hgb (11.4-16.0) gm/dL Hct (34.0-46.0) % MCV (80.0-100.0) fL MCH (25.0-35.0) pg MCHC (31.0-37.0) g/dL RDW (11.5-15.5) % Plt Count (150-450) k/uL Neutrophils % % Lymphocytes % % Monocytes % % Eosinophils % % Basophils % % Neutrophils # (1.3-7.7) k/uL Lymphocytes # (1.0-4.8) k/uL Monocytes # (0-1.0) k/uL Eosinophils # (0-0.7) k/uL Basophils # (0-0.2) k/uL PT 10.4 (9.0-12.0) sec INR 1.0 (<1.2) APTT 22.1 (22.0-30.0) sec D-Dimer 0.25 (<0.60) mg/L FEU Sodium (137-145) mmol/L Potassium (3.5-5.1) mmol/L Chloride (98-107) mmol/L Carbon Dioxide (22-30) mmol/L Anion Gap mmol/L BUN (7-17) mg/dL Creatinine (0.52-1.04) mg/dL Est GFR (MDRD) Af Amer (>60 ml/min/1.73 sqM) Est GFR (MDRD) Non-Af (>60 ml/min/1.73 sqM) Glucose (74-99) mg/dL Calcium (8.4-10.2) mg/dL Total Bilirubin (0.2-1.3) mg/dL AST (14-36) U/L ALT (9-52) U/L Alkaline Phosphatase (38-126) U/L Total Creatine Kinase (30-135) U/L CK-MB (CK-2) (0.0-2.4) ng/mL CK-MB (CK-2) Rel Index Troponin I (0.000-0.034) ng/mL Total Protein (6.3-8.2) g/dL Albumin (3.5-5.0) g/dL - Radiology Data Radiology results: image reviewed (Chest x-ray shows perihilar interstitial pattern, correlate for bronchitis or interstitial pneumonitis.) Critical Care Time Critical Care Time: Yes Total Critical Care Time: 33 Disposition Clinical Impression: Status asthmaticus Disposition: ADMITTED IP TO THIS HOSP Referrals: Lucien Lo MD [Primary Care Provider] - 1-2 days Decision Time: 14:00
[2016-11-25 12:08] LABS: Basophils % (A) 0 %; CH 27.5; CHCM 32.4; Eosinophils # (A) 0.7 k/uL (0-0.7); Eosinophils % (A) 4 %; HCT 46.4 % (34.0-46.0); HDW 2.58; HGB 14.5 gm/dL (11.4-16.0); Luc # (Auto) 0.19; Luc % (Auto) 1; Lymphocytes # (A) 1.9 k/uL (1.0-4.8); Lymphocytes % (A) 11 %; MCH 26.6 pg (25.0-35.0); MCHC 31.3 g/dL (31.0-37.0); MCV 85.2 fL (80.0-100.0); Mean Platelet Volume 7.9; Monocytes # (A) 1.1 k/uL (0-1.0); Monocytes % (A) 6 %; Neutrophils # (A) 13.3 k/uL (1.3-7.7); Neutrophils % (A) 77 %; RBC 5.44 m/uL (3.80-5.40); RDW 15.2 % (11.5-15.5); WBC 17.1 k/uL (3.8-10.6); WBC (Perox) 16.39
[2016-11-25 12:21] LABS: ALT 48 U/L (9-52); AST 25 U/L (14-36); Alkaline Phosphatase 52 U/L (38-126); Anion Gap 10 mmol/L; Blood Urea Nitrogen 11 mg/dL (7-17); Calcium 9.5 mg/dL (8.4-10.2); Carbon Dioxide 23 mmol/L (22-30); Chloride 107 mmol/L (98-107); Glucose 85 mg/dL (74-99); Non-African American GFR(MDRD) >60 (>60 ml/min/1.73 sqM); Potassium 4.1 mmol/L (3.5-5.1); Sodium 140 mmol/L (137-145); Total Bilirubin 0.5 mg/dL (0.2-1.3); Total Protein 7.2 g/dL (6.3-8.2)
[2016-11-25 12:29] LABS: Creatine Kinase 64 U/L (30-135)
[2016-11-25 12:40] LABS: Partial Thromboplastin Time 22.1 sec (22.0-30.0); Prothrombin Time 10.4 sec (9.0-12.0)
[2016-11-25 12:42] LABS: Creatine Kinase MB 0.3 ng/mL (0.0-2.4); Troponin I <0.012 ng/mL (0.000-0.034)
--- NOTE | 2016-11-25 12:51 | XR ---
EXAMINATION TYPE: XR chest 2V DATE OF EXAM: 11/25/2016 COMPARISON: 06/17/2016 TECHNIQUE: PA and lateral views submitted. HISTORY: Shortness of breath FINDINGS: The lungs are clear and there is no pneumothorax, pleural effusion, or focal pneumonia. Perihilar i nterstitial pattern noted. IMPRESSION: 1. Perihilar interstitial pattern noted. Correlate for colitis or interstitial pneumonitis. Venous co ngestion felt less likely.
[2016-11-25] MEDS ORDERED: IPRATROPIUM-ALBUTEROL 3 ML NEB INHALATION PRN (14:01)
[2016-11-25] MEDS ORDERED: Acetaminophen-Codeine 300-30mg TAB PO STA (14:16)
[2016-11-25] MEDS: SODIUM CHLORIDE 0.9% 1,000 ML IV SCH ×2 (15:19→17:49)
[2016-11-25] MEDS: methylPREDNISolone SOD SUCCI 125 MG/2 ML VIAL IV SCH ×2 (17:49→23:47)
[2016-11-25] MEDS: IPRATROPIUM-ALBUTEROL 3 ML NEB INHALATION SCH ×2 (20:16→20:19)
[2016-11-25 20:34] VITALS: RESP 20
[2016-11-25] MEDS: Acetaminophen-Codeine 300-30mg TAB PO PRN (21:36)
[2016-11-25] MEDS: MONTELUKAST 10 MG TAB PO SCH (22:18)
--- NOTE | 2016-11-25 23:30 | P.HPIM ---
History of Present Illness H&P Date: 11/25/16 Chief Complaint: Wheezing History of presenting complaint: This is a pleasant 26-year-old patient of Dr. Poon. Patient chronic stable medical conditions include migraines, sinusitis, seasonal ALLERGIES. Patient is also asthmatic. Patient presents with 2 days of worsening unable to breathe, tight chest, minimal cough, no fever. Appetite had gone down. Has decided to come to the hospital. GEN.: Tired EYES: None HEENT: None NECK: None RESPIRATORY: As above CARDIOVASCULAR: None GASTROINTESTINAL: None GENITOURINARY: None MUSCULOSKELETAL: Back pain or shortness of breath LYMPHATICS: None HEMATOLOGICAL: None PSYCHIATRY: None NEUROLOGICAL: None Past history: Asthma, migraines, sinusitis, seasonal ALLERGIES, -induced hypertension , congestive diabetes, Past surgical history: , tubal ligation, nasal polypectomy Social history: This was her children. No alcohol. No smoking Home medications: Reviewed in the computed ALLERGIES: Amoxicillin, ciprofloxacin profile, Zomig, NSAIDs amoxicillin, Cipro, Advair, PPIs, Bactrim, NSAIDs, Zomig, propelle VITAL SIGNS: 97.8, 104, 20, 145/73, 96% 2 L GENERAL: Average built BMI of 34.7, laying in bed, short of breath. EYES: Pupils equal. Conjunctiva normal. HEENT: External appearance of nose and ears normal, oral cavity grossly normal. NECK: JVD not raised; masses not palpable. HEART: First and second heart sounds are normal; no edema. LUNGS: Respiratory rate increased, decreased by some bright expiration and wheezing. ABDOMEN: Soft, nontender, liver spleen not palpable, no masses palpable. LYMPHATICS: No lymph nodes palpable in the axilla and neck. PSYCH: Alert and oriented x3; mood and affect normal. NEUROLOGICAL: Cranial nerves grossly intact; no facial asymmetry, power and sensation grossly intact. Investigations White count 7.1, potassium 4.1 Chest-shows interstitial pneumonitis Assessment: Moderate obstructive asthma, acute exacerbation, from possible acute pneumonitis could be viral -Obesity BMI 34.7 -Seasonal ALLERGIES Plan: Patient started bronchitis, Solu-Medrol, Lovenox. Care was discussed the patient. Heating pad for the musculoskeletal pain. Care was discussed Past Medical History Past Medical History: Asthma, Pneumonia Additional Past Medical History / Comment(s): Migraines, sinusitis, palpitaions , pneumonia, seasonal allergies, -induced hypertension, gestational diabetes (secondary to steroids during ), severe persistent bronchial asthma, nasal polyposis, aspirin sensitivity, atopic disease with known environmental ALLERGIES. History of Any Multi-Drug Resistant Organisms: None Reported Past Surgical History: Section, Tubal Ligation Additional Past Surgical History / Comment(s): 4 nasal polypectomies, 2 C- Sections Past Anesthesia/Blood Transfusion Reactions: No Reported Reaction Smoking Status: Never smoker - Past Family History Father Family Medical History: Unable to Obtain Additional Family Medical History / Comment(s): Pt was adopted mother Family Medical History: Unable to Obtain Additional Family Medical History / Comment(s): pt is adopted and does not know family history Medications and Allergies Home Medications Medication Instructions Recorded Confirmed Type Albuterol Inhaler [Ventolin Hfa 2 puff INHALATION RT-Q6H PRN 05/20/16 11/25/16 History Inhaler] Albuterol Nebulized [Ventolin 2.5 mg INHALATION Q4H PRN 05/20/16 11/25/16 History Nebulized] Acetaminophen [Tylenol] 650 mg PO Q6H PRN 11/25/16 11/25/16 History Pseudoephedrine 12Hr [Sudafed 12Hr] 120 mg PO Q12H PRN 11/25/16 11/25/16 History diphenhydrAMINE HCL [Benadryl] 25 mg PO HS PRN 11/25/16 11/25/16 History predniSONE 10 - 40 mg PO DAILY 11/25/16 11/25/16 History Allergies Allergy/AdvReac Type Severity Reaction Status Date / Time amoxicillin [Amoxicillin] Allergy Severe Rash/Hives Verified 11/25/16 11:17 ciprofloxacin [From Cipro] Allergy Severe Rash/Hives Verified 11/25/16 11:17 ciprofloxacin HCl Allergy Severe Rash/Hives Verified 11/25/16 11:17 [From Cipro] fluticasone propionate Allergy Severe Rash/Hives Verified 11/25/16 11:17 [From Advair Diskus] levofloxacin Allergy Severe Rash/Hives Verified 11/25/16 11:17 Proton Pump Inhibitors Allergy Severe Rash/Hives Verified 11/25/16 11:17 salmeterol xinafoate Allergy Severe Rash/Hives Verified 11/25/16 11:17 [From Advair Diskus] sulfamethoxazole Allergy Intermediate Rash/Hives Verified 11/25/16 11:17 [From Bactrim] trimethoprim [From Bactrim] Allergy Intermediate Rash/Hives Verified 11/25/16 11 :17 ketorolac tromethamine Allergy Anaphylaxis Verified 11/25/16 11:17 [From Toradol] NSAIDS (Non-Steroidal Allergy Anaphylaxis Verified 11/25/16 11:17 Anti-Inflamma zomig Allergy Severe Anaphylaxis Uncoded 11/25/16 11:01 PROPELLE Allergy Unknown Uncoded 11/25/16 11:01 Results CBC & Chem 7: 11/25/16 11:56 11/25/16 11:56
[2016-11-26] MEDS: Acetaminophen-Codeine 300-30mg TAB PO PRN ×4 (01:25→20:51)
[2016-11-26] MEDS: methylPREDNISolone SOD SUCCI 125 MG/2 ML VIAL IV SCH ×3 (05:43→17:27)
[2016-11-26 06:28] LABS: Basophils % (A) 0 %; CH 26.6; Eosinophils % (A) 0 %; HCT 44.2 % (34.0-46.0); HDW 2.57; HGB 13.9 gm/dL (11.4-16.0); Hypochromasia Slight; Luc # (Auto) 0.15; Luc % (Auto) 1; Lymphocytes % (A) 4 %; MCHC 31.4 g/dL (31.0-37.0); MCV 86.2 fL (80.0-100.0); Mean Platelet Volume 7.5; Monocytes # (A) 0.8 k/uL (0-1.0); Monocytes % (A) 4 %; Neutrophils # (A) 20.3 k/uL (1.3-7.7); Neutrophils % (A) 91 %; RBC 5.13 m/uL (3.80-5.40); RDW 14.2 % (11.5-15.5); WBC 22.3 k/uL (3.8-10.6); WBC (Perox) 22.66
--- NOTE | 2016-11-26 07:27 | XR ---
EXAMINATION TYPE: XR chest 2V DATE OF EXAM: 11/26/2016 COMPARISON: Chest x-ray from yesterday. HISTORY: History of asthma with cough. TECHNIQUE: Frontal and lateral views of the chest are obtained. FINDINGS: Some improved aeration. Hilar region and left basilar region is noted. There is no new estelle picious focal air space opacity, pleural effusion, or pneumothorax seen. The cardiac silhouette size is within normal limits. The osseous structures are intact. IMPRESSION: Resolving perihilar interstitial and left basilar infiltrates, no new infiltrates are pr esent.
[2016-11-26] MEDS: SODIUM CHLORIDE 0.9% 1,000 ML IV SCH (08:11)
[2016-11-26] MEDS: ENOXAPARIN 40 MG/0.4 ML SYRINGE SQ SCH (08:18)
[2016-11-26] MEDS: IPRATROPIUM-ALBUTEROL 3 ML NEB INHALATION SCH ×4 (08:48→19:20)
[2016-11-26] MEDS ORDERED: ENOXAPARIN 40 MG/0.4 ML SYRINGE SQ SCH (09:00)
--- NOTE | 2016-11-26 13:36 | CDI ---
In responding to this query, please exercise your independent professional judgment. The [facility] Coding Staff and Clinical Documentation Specialists appreciate your assistance in clarifying documentation, maintaining compliance with coding guidelines, accurately documenting patients condition and capturing severity of illness. The fact that a question is asked does not imply that any particular answer is desired or expected. Communication forms are a method of clarifying documentation and are not made part of the Legal Health Record. Thank you in advance for your clarification. Last Revision, July 2016 Seda Morse [address] [place] [address] Documentation Clarification Form Date: 11/26/2016 1:21:00 PM From: Kalina Penn RN, CDS Admit Date: 11/25/2016 2:01:00 PM Patient Name: Ton Jason Visit Number: [id number] Dr. Matteo Larson, 76 year old patient presented with difficulty breathing Admitted for Acute exacerbation Asthma. History/Risk Factors: Asthma, Bronchitis Clinical Indicators: 3/4 SIRS Criteria met: HR 130, Resp 26, WBC 17.1, VS: 97.5 130 26 142/94 88ra Treatment: O2, IV Solu-medrol, Duoneb, In your professional opinion, please clarify if these findings signify one of the following conditions, whether the condition is POA, and cause, if known: SIRS, without underlying infectious process Sepsis Unable to determine Other, please specify Present on Admission: Yes No SIRS Criteria: 2 or more of the following may indicate SIRS Temperature < 96.8F(36C) or > 101.0F (38C) Heart Rate > 90 bpm Respiratory Rate > 20 breaths/min or PaCO2 < 32 mmHg White Blood Cell Count > 12,000 or < 4,000 cells/mm3 or > 10% bands Lactate >2.0 mmol/L (>4.0 is equivalent to septic shock) Please document in your progress notes and discharge summary in order to capture severity of illness and risk of mortality. Include clinical findings that support your diagnosis. FYI: Press F11 to launch patient chart. Thank you. VESNA
[2016-11-26] MEDS: diphenhydrAMINE 25 MG CAP PO PRN (17:27)
[2016-11-26] MEDS: MONTELUKAST 10 MG TAB PO SCH (20:50)
--- NOTE | 2016-11-26 22:46 | P.PN ---
<Betty Trevino - Last Filed: 11/26/16 22:30> Progress Note - Text DATE OF SERVICE: 11/26/2016 PRESENTING COMPLAINT: Wheezing INTERVAL HISTORY: This is a 26-year-old female with worsening shortness of breath difficulty breathing tightness in the chest, found to have an acute exacerbation of her asthma. 11/26/2016: Patient sitting up in the bed calm cooperative. Tolerating her diet, ambulatory in the room in the hallway, anxious to home. Continues on Solu- Medrol REVIEW OF SYSTEMS: Done for constitutional ,cardiovascular, GI, pulmonary with relevant findings as above. CURRENT MEDICATIONS DuoNeb, Benadryl, Lovenox, Solu-Medrol. PHYSICAL EXAM VITAL SIGNS: Temperature 97.9, pulse 102 respiratory rate 20, blood pressure 133/63, oxygen saturation 95% on room air. GENERAL APPEARANCE: Lying in bed, appears comfortable no distress EYES: Pupils equal. Conjunctiva normal. NECK: JVD not raised. Mass not palpable. RESPIRATORY: Respiratory effort normal. Fair air exchange, some wheezing noted. CARDIOVASCULAR: First and second sounds normal. No edema. ABDOMEN: Soft. Liver and spleen not palpable. No tenderness. No mass palpable. PSYCHIATRY: Alert and oriented x3. Mood and affect normal. INVESTIGATIONS: White blood cell count 22.3, lactic acid 2.1. Chest x-ray: Resolving perihilar interstitial l and left basilar infiltrates, no new infiltrates are present ASSESSMENT: -Moderate obstructive asthma, acute exacerbation, from possible acute pneumonitis could be viral -Obesity BMI 34.7 -Seasonal ALLERGIES -Leukocytosis likely secondary to steroid use. PLAN: Continue on bronchodilators Solu-Medrol. We'll titrate steroids down, discharge planning possibly for tomorrow. Plan of care discussed with the patient she is agreeable we will continue to monitor closely. HEAD PORTER statement: Patient was seen and examined by nurse practitioner Betty Trevino and all elements of the case discussed with attending Dr. Larson <Matteo Larson - Last Filed: 11/27/16 00:01> Progress Note - Text Attending note. Date of service-11/26/2016 This patient was seen and examined by me . I reviewed the note of my nurse practitioner, Ms. Trevino. Discussed with her, additional findings as below. Feels a bit better. Nasal congestion. Wheezing a bit improved. Tolerating a diet. Up to the bathroom.. Decrease cough On examination: Lungs-improved air entry with some expiratory wheezing Investigations: White count 22.3 Assessment and plan: Moderate persistent asthma with acute exacerbation clinically improvement Leukocytosis from steroids. Consult Dr. Christina. Cutback on IV Solu-Medrol to 40 every 8. Patient very keen to go home. Advised to stay in at least 24 more hours
[2016-11-27] MEDS: diphenhydrAMINE 25 MG CAP PO PRN ×2 (00:15→07:06)
[2016-11-27] MEDS: methylPREDNISolone SOD SUCCI 40 MG/ML 1 ML VIAL IV SCH ×2 (00:15→08:22)
[2016-11-27] MEDS: Acetaminophen-Codeine 300-30mg TAB PO PRN ×2 (07:05→12:28)
[2016-11-27] MEDS: SODIUM CHLORIDE 0.9% 1,000 ML IV SCH ×2 (08:22→08:45)
[2016-11-27] MEDS: ENOXAPARIN 40 MG/0.4 ML SYRINGE SQ SCH (08:23)
[2016-11-27] MEDS: IPRATROPIUM-ALBUTEROL 3 ML NEB INHALATION SCH ×2 (09:19→13:11)
[2016-11-27 09:23] VITALS: PULSE 88
[2016-11-27 14:24] VITALS: BP 122/59; TEMP 98.2
--- NOTE | 2016-11-27 15:23 | P.CNPUL ---
History of Present Illness Consult date: 11/27/16 Reason for consult: asthma Chief complaint: Shortness of breath History of present illness: A pleasant 26-year-old female patient with history of severe persistent bronchial asthma, aspirin sensitivity, nasal polyposis and steroid dependence was been coming into the hospital because of worsening shortness of breath and asthma exacerbation. This patient has been maintained on a combination of Dulera, Singulair, Flonase, and 10 mg of prednisone outpatient basis. She was also on Xolair treatment on an outpatient basis. Unfortunately she lost her medical coverage/insurance coverage and she has been able to take her medications for the past month or 2. At this point her shortness of breath and gotten worse and the patient presented him for asthma exacerbation, chest tightness and wheezing and difficulty breathing. She was having daily symptoms and she was over utilizing her albuterol rescue inhaler. She has an albuterol nebulized treatment at home. No nasal discharge. No significant sputum production. No pleurisy. No hemoptysis. No fever or chills. She has no significant acidosis reflux at this point. No heartburn. No eczema. She is already feeling better as the patient was treated with systemic steroids and bronchial dilators [id number]. She is tolerating her diet and ambulating in the hallway. Review of Systems 12 point review of system was done and the positive finds almost above in history of present illness Past Medical History Past Medical History: Asthma, Pneumonia Additional Past Medical History / Comment(s): Migraines, sinusitis, palpitaions , pneumonia, seasonal allergies, -induced hypertension, gestational diabetes (secondary to steroids during ), severe persistent bronchial asthma, nasal polyposis, aspirin sensitivity, atopic disease with known environmental ALLERGIES. History of Any Multi-Drug Resistant Organisms: None Reported Past Surgical History: Section, Tubal Ligation Additional Past Surgical History / Comment(s): 4 nasal polypectomies, 2 C- Sections Past Anesthesia/Blood Transfusion Reactions: No Reported Reaction Smoking Status: Never smoker - Past Family History Father Family Medical History: Unable to Obtain Additional Family Medical History / Comment(s): Pt was adopted mother Family Medical History: Unable to Obtain Additional Family Medical History / Comment(s): pt is adopted and does not know family history Medications and Allergies Home Medications Medication Instructions Recorded Confirmed Type Albuterol Inhaler [Ventolin Hfa 2 puff INHALATION RT-Q6H PRN 05/20/16 11/25/16 History Inhaler] Albuterol Nebulized [Ventolin 2.5 mg INHALATION Q4H PRN 05/20/16 11/25/16 History Nebulized] Acetaminophen [Tylenol] 650 mg PO Q6H PRN 11/25/16 11/25/16 History Pseudoephedrine 12Hr [Sudafed 12 120 mg PO Q12H PRN 11/25/16 11/25/16 History Hour] diphenhydrAMINE HCL [Benadryl] 25 mg PO HS PRN 11/25/16 11/25/16 History Allergies Allergy/AdvReac Type Severity Reaction Status Date / Time amoxicillin [Amoxicillin] Allergy Severe Rash/Hives Verified 11/25/16 11:17 ciprofloxacin [From Cipro] Allergy Severe Rash/Hives Verified 11/25/16 11:17 ciprofloxacin HCl Allergy Severe Rash/Hives Verified 11/25/16 11:17 [From Cipro] fluticasone propionate Allergy Severe Rash/Hives Verified 11/25/16 11:17 [From Advair Diskus] levofloxacin Allergy Severe Rash/Hives Verified 11/25/16 11:17 Proton Pump Inhibitors Allergy Severe Rash/Hives Verified 11/25/16 11:17 salmeterol xinafoate Allergy Severe Rash/Hives Verified 11/25/16 11:17 [From Advair Diskus] sulfamethoxazole Allergy Intermediate Rash/Hives Verified 11/25/16 11:17 [From Bactrim] trimethoprim [From Bactrim] Allergy Intermediate Rash/Hives Verified 11/25/16 11 :17 ketorolac tromethamine Allergy Anaphylaxis Verified 11/25/16 11:17 [From Toradol] NSAIDS (Non-Steroidal Allergy Anaphylaxis Verified 11/25/16 11:17 Anti-Inflamma zomig Allergy Severe Anaphylaxis Uncoded 11/25/16 11:01 PROPELLE Allergy Unknown Uncoded 11/25/16 11:01 Physical Exam Vitals: Vital Signs Temp Pulse Pulse Resp BP BP Pulse Ox 11/27/16 12:25 98.2 F 88 20 122/59 96 11/27/16 09:31 88 11/27/16 09:19 88 11/27/16 08:20 97.9 F 83 20 114/66 96 11/27/16 00:00 98.7 F 88 20 128/73 96 11/26/16 20:45 20 11/26/16 20:30 98.9 F 99 20 130/70 96 11/26/16 19:33 125 H 11/26/16 19:22 129 H 11/26/16 16:10 97.9 F 102 H 20 133/63 95 Obese with some cushingoid features related to chronic steroid use.Head exam was generally normal. There was no scleral icterus or corneal arcus. Mucous membranes were moist. Neck is short and supple and the patient has significant crowding of the posterior pharynx. No purulent drainage or discharge. Lung sounds are diminished and there is some scattered external wheezes throughout the lung peck bilaterally.Cardiac exam revealed the PMI to be normally situated and sized. The rhythm was regular and no extrasystoles were noted during several minutes of auscultation. The first and second heart sounds were normal and physiologic splitting of the second heart sound was noted. There were no murmurs, rubs, clicks, or gallops.Abdominal exam revealed normal bowel sounds. The abdomen was soft, non-tender, and without masses, organomegaly, or appreciable enlargement of the abdominal aorta.Examination of the extremities revealed easily palpable radial, femoral and pedal pulses. There was no cyanosis , clubbing or edema. Results Assessment 1 acute asthma exacerbation 2 severe persistent bronchial asthma with known history of aspirin sensitivity and nasal polyposis 3 chronic atopic disease with previous history of pansinusitis and ALLERGIC rhinosinusitis 4 hypertension 5 obesity 6 steroid dependence bronchial asthma that has been difficult to control. Plan We'll refill the patient's medication. We'll give her a prednisone burst taper the time of discharge facial be asked to continue using albuterol neb last treatment [id number] 2-4 times a day. Restart Singulair 10 mg by mouth daily. We will arrange and had corticosteroids in the form of samples for this patient. credit counselor on the case and the patient is applying for Medicaid. She'll be seeing me in the office for further advice. She is more stable at this point that she seems to be quite stable for discharge. Obviously Xolair cannot be used as long as the patient does not have any medical coverage. We' ll try to gather some combination of inhaled corticosteroids and long-acting beta agonist to stabilize her asthma on outpatient basis. - Laboratory Findings CBC and BMP: 11/26/16 05:43 11/25/16 11:56 PT/INR, D-dimer PT 10.4 sec (9.0-12.0) 11/25/16 11:56 INR 1.0 (<1.2) 11/25/16 11:56 D-Dimer 0.25 mg/L FEU (<0.60) 11/25/16 11:56 Abnormal lab findings: Abnormal Labs 11/25/16 11/26/16 11/26/16 11:56 05:43 07:25 WBC 17.1 H 22.3 H RBC 5.44 H Hct 46.4 H Neutrophils # 13.3 H 20.3 H Monocytes # 1.1 H Plasma Lactic Acid Mark 2.1 H* - Diagnostic Findings Chest x-ray: image reviewed
== END 2016-11-27 15:32 | disposition home or self-care (01) | DRG 194 ==
LOC: EC 10:54 → 6PED 14:01
PROVIDERS: ADMIT Hospitalist; ATTEND Hospitalist
DX: J12.9 Viral pneumonia, unspecified (principal); J45.51 Severe persistent asthma with (acute) exacerbation; E24.2 Drug-induced Cushing's syndrome; I10 Essential (primary) hypertension; T38.0X5A Adverse effect of glucocorticoids and synthetic analogues, initial encounter; M79.1 Myalgia; G43.909 Migraine, unspecified, not intractable, without status migrainosus; R53.83 Other fatigue; E66.9 Obesity, unspecified; D72.829 Elevated white blood cell count, unspecified; R00.0 Tachycardia, unspecified; M54.9 Dorsalgia, unspecified; Z86.32 Personal history of gestational diabetes; Z79.52 Long term (current) use of systemic steroids; Z79.899 Other long term (current) drug therapy; Z98.51 Tubal ligation status; Z86.79 Personal history of other diseases of the circulatory system; Z87.01 Personal history of pneumonia (recurrent); Z87.09 Personal history of other diseases of the respiratory system; Z88.6 Allergy status to analgesic agent; Z88.1 Allergy status to other antibiotic agents; Z88.5 Allergy status to narcotic agent; Z88.0 Allergy status to penicillin; Z88.2 Allergy status to sulfonamides; Z88.8 Allergy status to other drugs, medicaments and biological substances; Z91.018 Allergy to other foods; Z86.19 Personal history of other infectious and parasitic diseases
CPT/HCPCS: 36415; 71020; 80053; 82550; 82553; 83605; 84484; 85025; 85379; 85610; 85730; 93005; 94640; 96365; 96366; 96375; 99285

== ENCOUNTER 2017-02-24 00:04 | Inpatient (IN) | payer OTHER ==
[2017-02-24] MEDS ORDERED: ALBUTEROL NEBULIZED 2.5 MG/3 ML INHALATION STA ×2 (00:23→00:24)
[2017-02-24] MEDS ORDERED: SODIUM CHLORIDE 0.9% 500 ML IV STA (00:24)
[2017-02-24] MEDS ORDERED: methylPREDNISolone SOD SUCCI 125 MG/2 ML VIAL IV STA (00:24)
[2017-02-24] MEDS ORDERED: IPRATROPIUM 0.5 MG/2.5 ML NEBU INHALATION STA ×2 (00:24)
[2017-02-24] MEDS ORDERED: MAGNESIUM SULFATE-D5W PMX 1 GM in DEXTROSE/WATER 1 100ML.BAG IVPB ONE (00:29)
--- NOTE | 2017-02-24 00:34 | ED ---
General Adult HPI - General Chief complaint: Shortness of Breath Stated complaint: JERRY/ Hx Asthma Time Seen by Provider: 02/24/17 00:05 Source: patient, RN notes reviewed Mode of arrival: ambulatory Limitations: no limitations - History of Present Illness Initial comments: This is a 26-year-old female who presents to the emergency department with a past medical history of severe asthma. Patient states earlier this week she came in because she was having an asthma attack and she went home and has been on prednisone 60 mg a day but about 6 hours ago her breathing again became very labored and so she took 6 treatments and has not had any relief so she came to the emergency department. Patient denies any fever chills. Patient denies any significant cough. Patient denies any palpitations or chest pain. Patient denies any calf tenderness or leg swelling. Patient denies any abdominal pain patient denies nausea vomiting diarrhea. Patient denies any lightheadedness or dizziness. - Related Data Home Medications Medication Instructions Recorded Confirmed Albuterol Inhaler [Ventolin Hfa 2 puff INHALATION RT-Q6H PRN 05/20/16 02/17/17 Inhaler] Albuterol Nebulized [Ventolin 2.5 mg INHALATION RT-QID PRN 05/20/16 02/17/17 Nebulized] Previous Rx's Medication Instructions Recorded predniSONE 10 mg PO DAILY #30 tab 11/27/16 predniSONE 20 mg PO BID #10 tab 02/17/17 Allergies Allergy/AdvReac Type Severity Reaction Status Date / Time amoxicillin [Amoxicillin] Allergy Severe Rash/Hives Verified 02/17/17 17:12 ciprofloxacin [From Cipro] Allergy Severe Rash/Hives Verified 02/17/17 17:12 ciprofloxacin HCl Allergy Severe Rash/Hives Verified 02/17/17 17:12 [From Cipro] fluticasone propionate Allergy Severe Rash/Hives Verified 02/17/17 17:12 [From Advair Diskus] levofloxacin Allergy Severe Rash/Hives Verified 02/17/17 17:12 Proton Pump Inhibitors Allergy Severe Rash/Hives Verified 02/17/17 17:12 salmeterol xinafoate Allergy Severe Rash/Hives Verified 02/17/17 17:12 [From Advair Diskus] sulfamethoxazole Allergy Intermediate Rash/Hives Verified 02/17/17 17:12 [From Bactrim] trimethoprim [From Bactrim] Allergy Intermediate Rash/Hives Verified 02/17/17 17 :12 ketorolac tromethamine Allergy Anaphylaxis Verified 02/17/17 17:12 [From Toradol] NSAIDS (Non-Steroidal Allergy Anaphylaxis Verified 02/17/17 17:12 Anti-Inflamma zomig Allergy Severe Anaphylaxis Uncoded 02/17/17 16:43 PROPELLE Allergy Unknown Uncoded 02/17/17 16:43 Review of Systems ROS Statement: Those systems with pertinent positive or pertinent negative responses have been documented in the HPI. ROS Other: All systems not noted in ROS Statement are negative. Past Medical History Past Medical History: Asthma, Pneumonia Additional Past Medical History / Comment(s): Migraines, sinusitis, palpitaions , pneumonia, seasonal allergies, -induced hypertension, gestational diabetes (secondary to steroids during ), severe persistent bronchial asthma, nasal polyposis, aspirin sensitivity, atopic disease with known environmental ALLERGIES. History of Any Multi-Drug Resistant Organisms: None Reported Past Surgical History: Section, Tubal Ligation Additional Past Surgical History / Comment(s): 4 nasal polypectomies, 2 C- Sections Past Anesthesia/Blood Transfusion Reactions: No Reported Reaction Past Psychological History: No Psychological Hx Reported Smoking Status: Never smoker Past Alcohol Use History: None Reported Past Drug Use History: None Reported - Past Family History Father Family Medical History: Unable to Obtain Additional Family Medical History / Comment(s): Pt was adopted mother Family Medical History: Unable to Obtain Additional Family Medical History / Comment(s): pt is adopted and does not know family history General Exam - General Exam Comments Initial Comments: GENERAL: Patient is well-developed and well-nourished. Patient is nontoxic and well- hydrated and is in moderate distress. ENT: Neck is soft and supple. No significant lymphadenopathy is noted. Oropharynx is clear. Moist mucous membranes. Neck has full range of motion without eliciting any pain. EYES: The sclera were anicteric and conjunctiva were pink and moist. Extraocular movements were intact and pupils were equal round and reactive to light. Eyelids were unremarkable. PULMONARY: Patient is wheezing diffusely CARDIOVASCULAR: Patient is tachycardic ABDOMEN: Soft and nontender with normal bowel sounds. SKIN: Skin is clear with no lesions or rashes and otherwise unremarkable. NEUROLOGIC: Patient is alert and oriented x3. Cranial nerves II through XII are grossly intact. Motor and sensory are also intact. Normal speech, volume and content. Symmetrical smile. MUSCULOSKELETAL: Normal extremities with adequate strength and full range of motion. LYMPHATICS: No significant lymphadenopathy is noted PSYCHIATRIC: Normal psychiatric evaluation. Normal interpersonal interactions appears functionally intact in deals appropriately with others. No signs of depression. No signs of anxiety. Limitations: no limitations Course Vital Signs 02/24/17 02/24/17 00:06 00:26 Temperature 98.3 F Pulse Rate 127 H 109 H Respiratory 24 Rate Blood Pressure 127/91 O2 Sat by Pulse 95 Oximetry Medical Decision Making - Medical Decision Making EKG shows sinus tachycardia at a 25 bpm UT interval is 134 QRS is 76 QT intervals 296 QTC is 427. Patient's EKG shows no ST segment elevation or depression or T wave abnormalities are noted Chest x-ray shows no acute abnormality Patient got 3 breathing treatments consecutively and it improved her aeration considerably. Patient also got Solu-Medrol IV. Spoke with Dr. Robles he agreed to admit the patient admitted the patient and wrote admitting orders. - Lab Data Result diagrams: 02/24/17 00:26 02/24/17 00:26 Lab Results 02/24/17 02/24/17 Range/Units 00:26 00:26 WBC 17.9 H (3.8-10.6) k/uL RBC 5.19 (3.80-5.40) m/uL Hgb 14.5 (11.4-16.0) gm/dL Hct 46.0 (34.0-46.0) % MCV 88.5 (80.0-100.0) fL MCH 27.9 (25.0-35.0) pg MCHC 31.5 (31.0-37.0) g/dL RDW 15.1 (11.5-15.5) % Plt Count 330 (150-450) k/uL Sodium 141 (137-145) mmol/L Potassium 3.9 (3.5-5.1) mmol/L Chloride 108 H (98-107) mmol/L Carbon Dioxide 21 L (22-30) mmol/L Anion Gap 12 mmol/L BUN 13 (7-17) mg/dL Creatinine 0.90 (0.52-1.04) mg/dL Est GFR (MDRD) Af Amer >60 (>60 ml/min/1.73 sqM) Est GFR (MDRD) Non-Af >60 (>60 ml/min/1.73 sqM) Glucose 89 (74-99) mg/dL Calcium 9.5 (8.4-10.2) mg/dL Magnesium 1.6 (1.6-2.3) mg/dL Total Bilirubin 0.3 (0.2-1.3) mg/dL AST 17 (14-36) U/L ALT 32 (9-52) U/L Alkaline Phosphatase 54 (38-126) U/L Total Protein 6.8 (6.3-8.2) g/dL Albumin 3.8 (3.5-5.0) g/dL Critical Care Time Critical Care Time: Yes Total Critical Care Time: 35 Disposition Clinical Impression: Acute asthma exacerbation Disposition: ADMITTED IP TO THIS HOSP Referrals: Lucien Lo MD [Primary Care Provider] - 1-2 days Time of Disposition: 01:26
[2017-02-24 01:08] LABS: CH 28.5; CHCM 32.3; HDW 2.47; HGB 14.5 gm/dL (11.4-16.0); MCH 27.9 pg (25.0-35.0); MCHC 31.5 g/dL (31.0-37.0); MCV 88.5 fL (80.0-100.0); Mean Platelet Volume 7.3; RBC 5.19 m/uL (3.80-5.40); RDW 15.1 % (11.5-15.5); WBC 17.9 k/uL (3.8-10.6); WBC (Perox) 17.37
[2017-02-24 01:11] LABS: ALT 32 U/L (9-52); AST 17 U/L (14-36); Alkaline Phosphatase 54 U/L (38-126); Anion Gap 12 mmol/L; Blood Urea Nitrogen 13 mg/dL (7-17); Calcium 9.5 mg/dL (8.4-10.2); Carbon Dioxide 21 mmol/L (22-30); Chloride 108 mmol/L (98-107); Glucose 89 mg/dL (74-99); Magnesium 1.6 mg/dL (1.6-2.3); Non-African American GFR(MDRD) >60 (>60 ml/min/1.73 sqM); Potassium 3.9 mmol/L (3.5-5.1); Sodium 141 mmol/L (137-145); Total Bilirubin 0.3 mg/dL (0.2-1.3); Total Protein 6.8 g/dL (6.3-8.2)
[2017-02-24 01:23] LABS: Add Differential Manual Differential
[2017-02-24 01:25] LABS: Band Neutrophils % 1 %; Creatine Kinase 57 U/L (30-135); Manual Review Performed; Nucleated Red Blood Cells 0 /100 WBC (0-0); Total Cells Counted 100
[2017-02-24 01:38] LABS: Creatine Kinase MB 0.4 ng/mL (0.0-2.4); Troponin I <0.012 ng/mL (0.000-0.034)
[2017-02-24 01:41] LABS: Prothrombin Time 10.2 sec (9.0-12.0)
--- NOTE | 2017-02-24 01:41 | XR ---
EXAMINATION TYPE: XR chest 2V DATE OF EXAM: 02/24/2017 COMPARISON: 02/17/2017 HISTORY: Difficulty breathing TECHNIQUE: Frontal and lateral views of the chest are obtained. FINDINGS: Heart and mediastinum are normal. Lungs are clear of consolidation. There are small linear density behind the heart in the left lower lobe. There is no pleural effusion. There are chest leads . Bony thorax is intact. IMPRESSION: There is some minimal linear subsegmental atelectasis in the left lower lobe that is new compared to old exam. Normal heart.
[2017-02-24 01:47] LABS: Partial Thromboplastin Time 19.6 sec (22.0-30.0)
[2017-02-24 02:38] VITALS: BMI 37.0
[2017-02-24] MEDS: methylPREDNISolone SOD SUCCI 125 MG/2 ML VIAL IV SCH ×2 (06:12→12:35)
[2017-02-24] MEDS: IPRATROPIUM-ALBUTEROL 3 ML NEB INHALATION PRN ×5 (06:59→23:42)
[2017-02-24] MEDS: ENOXAPARIN 40 MG/0.4 ML SYRINGE SQ SCH (09:30)
[2017-02-24] MEDS: SODIUM CHLORIDE 0.9% 500 ML IV SCH (14:00)
[2017-02-24] MEDS: MONTELUKAST 10 MG TAB PO SCH (20:41)
[2017-02-24] MEDS: methylPREDNISolone SOD SUCCI 40 MG/ML 1 ML VIAL IV SCH (20:41)
[2017-02-24] MEDS: BUDESONIDE 1 MG/2 ML NEBU INHALATION SCH (21:08)
--- NOTE | 2017-02-24 21:54 | HP ---
HISTORY AND PHYSICAL DATE OF ADMISSION: 02/24/17. PRESENTING COMPLAINT: Wheezing. HISTORY OF PRESENTING COMPLAINT: This is a pleasant 26-year-old patient of Dr. Lo. His chronic stable medical conditions include migraine, sinusitis, seasonal allergies. The patient is a known asthmatic has not worsening symptoms for about a week, including wheezing, cough, not much sputum. Patient did come to the ER and gone back, symptoms did get better and had to get readmitted. Denies any fever, hepatitis, picked up after getting steroids, some improvement after getting nebulized bronchodilators. REVIEW OF SYSTEMS: Constitutional tired. HEENT: None. RESPIRATORY: As above. Cardiovascular: None. Gastrointestinal denies. Musculoskeletal some left hip pain, back pain, chronic. Dermatological, hematologic, lymphatics none. Psychiatry some anxiety. Neurological none. PAST MEDICAL HISTORY: Of asthma, migraine, sinusitis, seasonal allergies, hypertension. PAST SURGICAL HISTORY: , tubal ligation, nasal polypectomy. SOCIAL HISTORY: Has got children at home. No alcohol or smoking. HOME MEDICATIONS: Prednisone taper, Singulair 10 mg q.h.s., Ventolin 2.5 nebulizer q.3 p.r.n. Ventolin HFA 2 puffs q.4h p.r.n. ALLERGIES: TO AMOXICILLIN, CIPRO, ADVAIR, LEVAQUIN, PPIS, ADVAIR, BACTRIM, NSAIDS, ZOMIG, PROPALE. ASSESSMENT: 1. Moderate obstructive asthma with acute exacerbation. 2. Obesity BMI greater than 30. 3. Seasonal allergies. 4. Leukocytosis likely from steroids. PLAN: Patient given a burst of steroids, nebulized bronchodilators, home medications to be continued. The patient encouraged to be out of bed. We will see how she does. Copy to Dr. Lo. MMODL / IJN: [id number] /
[2017-02-25] MEDS: methylPREDNISolone SOD SUCCI 40 MG/ML 1 ML VIAL IV SCH ×3 (01:30→16:36)
[2017-02-25] MEDS: BUDESONIDE 1 MG/2 ML NEBU INHALATION SCH ×2 (06:48→20:54)
[2017-02-25] MEDS: IPRATROPIUM-ALBUTEROL 3 ML NEB INHALATION PRN ×2 (06:48→16:20)
[2017-02-25] MEDS: ENOXAPARIN 40 MG/0.4 ML SYRINGE SQ SCH (09:17)
--- NOTE | 2017-02-25 10:54 | P.CNPUL ---
History of Present Illness Consult date: 02/25/17 Requesting physician: Matteo Larson Reason for consult: asthma Chief complaint: Shortness of breath cough and wheezing History of present illness: This is a 26-year-old female who is familiar to my service, patient is known to have history of moderate severe bronchial asthma, multiple admissions in the last year for acute asthma exacerbation. Patient is not compliant with all her bronchodilators, she is only using albuterol inhaler, and prednisone as needed. Patient was supposed to be on multiple bronchodilators, however she is not able to afford the inhalers, hence she presented with shortness of breath cough and wheezing earlier this week, patient was placed on prednisone 60 mg a day, but was not improving much, returned back to the ER with cough wheezing shortness of breath, labored breathing, and she was using her albuterol quite frequently. No fever no chills no hemoptysis. Chest x-ray showed no evidence of active disease, minimal left basilar atelectasis is noted. Patient was admitted and this consult was initiated. Again patient has not been compliant with her medications, she was recently on albuterol only, and a course of prednisone which was started recently by the ER physician. No headaches no blurred vision no dizziness to nausea no vomiting no abdominal pain no melena no hematemesis is no dysuria and no frequency no urgency. Review of Systems 14 point review of systems were obtained, please refer to pertinent positives in HPI, otherwise remaining systems are negative. Past Medical History Past Medical History: Asthma, Pneumonia Additional Past Medical History / Comment(s): Migraines, sinusitis, palpitaions , pneumonia, seasonal allergies, -induced hypertension, gestational diabetes (secondary to steroids during ), severe persistent bronchial asthma, nasal polyposis, aspirin sensitivity, atopic disease with known environmental ALLERGIES. History of Any Multi-Drug Resistant Organisms: None Reported Past Surgical History: Section, Tubal Ligation Additional Past Surgical History / Comment(s): 4 nasal polypectomies, 2 C- Sections Past Anesthesia/Blood Transfusion Reactions: No Reported Reaction Past Psychological History: No Psychological Hx Reported Additional Psychological History / Comment(s): Lives in the family home with her children at this time. 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 She is a lifelong nonsmoker. No significant alcohol use. No recreational drug use. No experience. No extensive travel history. Smoking Status: Never smoker Past Alcohol Use History: None Reported Past Drug Use History: None Reported - Past Family History Father Family Medical History: Unable to Obtain Additional Family Medical History / Comment(s): Pt was adopted mother Family Medical History: Unable to Obtain Additional Family Medical History / Comment(s): pt is adopted and does not know family history Medications and Allergies Home Medications Medication Instructions Recorded Confirmed Type Albuterol Inhaler [Ventolin Hfa 2 puff INHALATION RT-Q4H PRN 05/20/16 02/24/17 History Inhaler] Albuterol Nebulized [Ventolin 2.5 mg INHALATION RT-Q3H PRN 05/20/16 02/24/17 History Nebulized] Montelukast Sodium [Singulair] 10 mg PO HS 02/24/17 02/24/17 History predniSONE 10 - 40 mg PO DIRECTED 02/24/17 02/24/17 History Allergies Allergy/AdvReac Type Severity Reaction Status Date / Time amoxicillin [Amoxicillin] Allergy Severe Rash/Hives Verified 02/24/17 07:57 ciprofloxacin [From Cipro] Allergy Severe Rash/Hives Verified 02/24/17 07:57 ciprofloxacin HCl Allergy Severe Rash/Hives Verified 02/24/17 07:57 [From Cipro] fluticasone propionate Allergy Severe Rash/Hives Verified 02/24/17 07:57 [From Advair Diskus] levofloxacin Allergy Severe Rash/Hives Verified 02/24/17 07:57 Proton Pump Inhibitors Allergy Severe Rash/Hives Verified 02/24/17 07:57 salmeterol xinafoate Allergy Severe Rash/Hives Verified 02/24/17 07:57 [From Advair Diskus] sulfamethoxazole Allergy Intermediate Rash/Hives Verified 02/24/17 07:57 [From Bactrim] trimethoprim [From Bactrim] Allergy Intermediate Rash/Hives Verified 02/24/17 07 :57 ketorolac tromethamine Allergy Anaphylaxis Verified 02/24/17 07:57 [From Toradol] NSAIDS (Non-Steroidal Allergy Anaphylaxis Verified 02/24/17 07:57 Anti-Inflamma zomig Allergy Severe Anaphylaxis Uncoded 02/24/17 02:44 PROPELLE Allergy Unknown Uncoded 02/24/17 02:44 Physical Exam Vitals: Vital Signs Temp Pulse Pulse Resp BP Pulse Ox 02/25/17 07:45 97.7 F 95 20 125/65 96 02/25/17 07:06 88 02/25/17 06:48 86 97 02/25/17 06:30 97.9 F 78 95 H 118/76 95 02/24/17 23:52 99 02/24/17 23:45 96 02/24/17 20:54 96 20 124/73 93 L 02/24/17 19:23 88 02/24/17 19:12 86 02/24/17 16:22 98.3 F 92 20 131/67 96 02/24/17 16:00 89 20 02/24/17 15:12 93 02/24/17 15:02 95 95 02/24/17 11:11 80 02/24/17 11:01 84 02/24/17 10:55 97.7 F 89 20 139/82 98 Intake and Output 02/24/17 02/25/17 02/25/17 22:59 06:59 14:59 Intake Total 240 Balance 240 Intake: Oral 240 Other: Voiding Method Toilet # Voids 1 Physical Exam: Revealed a 26-year-old female in no distress. HEENT:[Neck is supple.] [No neck masses.] [No thyromegaly.] [No JVD.] Chest: [Diminished breath sounds at the bases, some wheezing on forced expiratory maneuver was noted. No chest wall tenderness. No crackles, no rhonchi.] Cardiac Exam: [Normal S1 and S2, no S3 gallop, no murmur.] Abdomen: [Obese, Soft, nontender, no megaly, no rebound, no guarding, normal bowel sounds.] Extremities: [No clubbing, no edema, no cyanosis.] Neurological Exam: [No focal neurologic deficit.] Psychiatric: Normal mood and affect, normal mental status examination. Lymphatics: No lymphadenopathy was appreciated. Musculoskeletal: Normal range of motion, no joint deformities, no tenderness. Results - Laboratory Findings CBC and BMP: 02/24/17 00:26 02/24/17 00:26 PT/INR, D-dimer PT 10.2 sec (9.0-12.0) 02/24/17 01:16 INR 1.0 (<1.2) 02/24/17 01:16 Abnormal lab findings: Abnormal Labs 02/24/17 02/24/17 02/24/17 00:26 00:26 01:16 WBC 17.9 H Neutrophils # (Manual) 8.50 H Lymphocytes # (Manual) 7.34 H Monocytes # (Manual) 1.43 H APTT 19.6 L Chloride 108 H Carbon Dioxide 21 L - Diagnostic Findings Chest x-ray: image reviewed (Subsegmental atelectasis left lower lobe) Assessment and Plan Assessment: Impression: Acute exacerbation of bronchial asthma, mostly related to noncompliance with medications because of the cost. Multiple medical problems including history of moderate severe persistent asthma , history of nasal polyposis, history of aspirin and nonsteroidal anti-inflammatory medication sensitivity, History of chronic migraines History of obesity partly related to the use of systemic steroids History of atopic disease and multiple environmental ALLERGIES. Recommendation: Fully agree with the present treatment plan, patient is already improving, consider discharge planning in the morning. Patient must have follow -up on outpatient basis. Time with Patient: Greater than 30
--- NOTE | 2017-02-25 14:50 | P.PN ---
Progress Note - Text Progress Note Date: 02/25/17 DATE OF SERVICE: 02/25/2017 PRESENTING COMPLAINT: Wheezing HISTORY OF PRESENT ILLNESS: 26-year-old female who presented with asthma symptoms that were worsening for about a week included wheezing coughing not much sputum production. Was seen in the emergency department and was sent back home had to return because her symptoms became worse and was admitted for the same. Breathing improved after receiving steroids updrafts nebulized bronchodilators. INTERVAL HISTORY: 02/25/2017: Patient seen in follow-up, lying in bed states she feels better but continues to have some wheezing. Cough is nonproductive. Can tolerate some activity, tolerating her diet, last BM 2 days ago. REVIEW OF SYSTEMS: Done for constitutional ,cardiovascular, GI, pulmonary with relevant findings as above. CURRENT MEDICATIONS DuoNeb, Pulmicort, Lovenox, Solu-Medrol, PHYSICAL EXAM VITAL SIGNS: Temperature 97.7, pulse 88, respiratory rate 20, blood pressure 125/65, oxygen saturation 96% on room air. GENERAL APPEARANCE: Lying in bed, not in distress. EYES: Pupils equal. Conjunctiva normal. NECK: JVD not raised. Mass not palpable. RESPIRATORY: Respiratory effort normal. Lungs wheezing noted to auscultation. CARDIOVASCULAR: First and second sounds normal. No edema. ABDOMEN: Soft. Liver and spleen not palpable. No tenderness. No mass palpable. PSYCHIATRY: Alert and oriented x3. Mood and affect normal. INVESTIGATIONS: INR 1.0, ASSESSMENT: -Moderate obstructive asthma with acute exacerbation, improving. -Obesity BMI greater than 30. -Seasonal ALLERGIES. -Leukocytosis likely from steroids, improving. PLAN: Continue steroid burst with taper, nebulized bronchodilators continue home medications. Patient encouraged to be up out of bed walking in the hallways. Discharge planning for the next 24-48 hours. Plan of care discussed with the patient the bedside will follow closely. WIND UP OPERATOR statement: Patient was seen and examined by nurse practitioner Betty Trevino and all elements of the case discussed with attending Dr. Larson
[2017-02-25] MEDS: SODIUM CHLORIDE 0.9% 500 ML IV SCH (15:48)
--- NOTE | 2017-02-25 17:34 | PN ---
PROGRESS NOTE DATE OF SERVICE: 02/25/17. ATTENDING NOTE: Patient was seen and examined by me. I discussed with my nurse practitioner, Ms. Trevino. The patient has got some wheezing, minimum sputum production. Tolerating a diet. On IV Solu-Medrol. PHYSICAL EXAMINATION: Afebrile, blood pressure 120/66. Lungs improved air entry. Some wheezing anteriorly. INVESTIGATION: None new. ASSESSMENT: Acute exacerbation of moderate persistent obstructive asthma. PLAN: Continue current medication and treatment plan. Care was discussed the patient. Encouraged to ambulate. Follow. MMODL / IJN: [id number] /
[2017-02-25] MEDS: MONTELUKAST 10 MG TAB PO SCH (20:29)
[2017-02-26 07:19] LABS: Anion Gap 8 mmol/L; Blood Urea Nitrogen 16 mg/dL (7-17); Calcium 9.6 mg/dL (8.4-10.2); Carbon Dioxide 26 mmol/L (22-30); Chloride 107 mmol/L (98-107); Glucose 111 mg/dL (74-99); Non-African American GFR(MDRD) >60 (>60 ml/min/1.73 sqM); Potassium 4.8 mmol/L (3.5-5.1); Sodium 141 mmol/L (137-145)
[2017-02-26 07:20] LABS: Anisocytosis Slight; Basophils % (A) 0 %; CH 27.5; CHCM 31.4; Eosinophils % (A) 0 %; HCT 45.8 % (34.0-46.0); HDW 2.28; HGB 14.2 gm/dL (11.4-16.0); Luc % (Auto) 1; Lymphocytes # (A) 1.6 k/uL (1.0-4.8); Lymphocytes % (A) 5 %; MCH 27.2 pg (25.0-35.0); MCHC 30.9 g/dL (31.0-37.0); MCV 87.9 fL (80.0-100.0); Mean Platelet Volume 8.1; Monocytes # (A) 1.4 k/uL (0-1.0); Monocytes % (A) 5 %; Neutrophils # (A) 26.3 k/uL (1.3-7.7); Neutrophils % (A) 89 %; RBC 5.21 m/uL (3.80-5.40); RDW 16.4 % (11.5-15.5); WBC (Perox) 29.65
[2017-02-26 07:26] LABS: WBC 29.6 k/uL (3.8-10.6)
[2017-02-26 07:28] VITALS: TEMP 98.2
[2017-02-26] MEDS: methylPREDNISolone SOD SUCCI 40 MG/ML 1 ML VIAL IV SCH ×2 (07:55)
[2017-02-26] MEDS: IPRATROPIUM-ALBUTEROL 3 ML NEB INHALATION PRN (08:18)
[2017-02-26] MEDS: BUDESONIDE 1 MG/2 ML NEBU INHALATION SCH (08:18)
[2017-02-26] MEDS: ENOXAPARIN 40 MG/0.4 ML SYRINGE SQ SCH (08:24)
[2017-02-26 08:51] VITALS: BP 115/70; PULSE 68; RESP 20
--- NOTE | 2017-02-26 10:41 | P.PN ---
Subjective Progress Note Date: 02/26/17 Principal diagnosis: Acute exacerbation of bronchial asthma This is a 26-year-old female who is familiar to my service, patient is known to have history of moderate severe bronchial asthma, multiple admissions in the last year for acute asthma exacerbation. Patient is not compliant with all her bronchodilators, she is only using albuterol inhaler, and prednisone as needed. Patient was supposed to be on multiple bronchodilators, however she is not able to afford the inhalers, hence she presented with shortness of breath cough and wheezing earlier this week, patient was placed on prednisone 60 mg a day, but was not improving much, returned back to the ER with cough wheezing shortness of breath, labored breathing, and she was using her albuterol quite frequently. No fever no chills no hemoptysis. Chest x-ray showed no evidence of active disease, minimal left basilar atelectasis is noted. Patient was admitted and this consult was initiated. Again patient has not been compliant with her medications, she was recently on albuterol only, and a course of prednisone which was started recently by the ER physician. No headaches no blurred vision no dizziness to nausea no vomiting no abdominal pain no melena no hematemesis is no dysuria and no frequency no urgency. Reevaluated today on 02/26/2017, patient is feeling much better, no cough no wheezing no shortness of breath, remains on IV steroids and multiple bronchodilators, hence I will arrange for the patient to be discharged home today, and follow-up on outpatient basis. Objective - Vital Signs Vital signs: Vital Signs Temp 98.2 F 02/26/17 08:15 Pulse 85 02/26/17 08:34 Resp 20 02/26/17 08:15 BP 115/70 02/26/17 08:15 Pulse Ox 98 02/26/17 08:15 Intake & Output 02/25/17 02/26/17 02/26/17 18:59 06:59 18:59 Other: # Voids 3 1 - Exam Physical Exam: Revealed a 26-year-old female in no distress. HEENT:[Neck is supple.] [No neck masses.] [No thyromegaly.] [No JVD.] Chest: [Diminished breath sounds at the bases, no crackles, no rhonchi, no wheezes..] Cardiac Exam: [Normal S1 and S2, no S3 gallop, no murmur.] Abdomen: [Obese, Soft, nontender, no megaly, no rebound, no guarding, normal bowel sounds.] Extremities: [No clubbing, no edema, no cyanosis.] Neurological Exam: [No focal neurologic deficit.] Psychiatric: Normal mood and affect, normal mental status examination. Lymphatics: No lymphadenopathy was appreciated. Musculoskeletal: Normal range of motion, no joint deformities, no tenderness. - Labs CBC & Chem 7: 02/26/17 06:50 02/26/17 06:50 Labs: Abnormal Lab Results - Last 24 Hours (Table) 02/26/17 02/26/17 Range/Units 06:50 06:50 WBC 29.6 H* (3.8-10.6) k/uL MCHC 30.9 L (31.0-37.0) g/dL RDW 16.4 H (11.5-15.5) % Neutrophils # 26.3 H (1.3-7.7) k/uL Monocytes # 1.4 H (0-1.0) k/uL Glucose 111 H (74-99) mg/dL Microbiology - Last 24 Hours (Table) 02/24/17 00:26 Blood Culture - Preliminary Blood No Growth after 48 hours Assessment and Plan Assessment: Impression: Acute exacerbation of bronchial asthma, mostly related to noncompliance with medications because of the cost. Multiple medical problems including history of moderate severe persistent asthma , history of nasal polyposis, history of aspirin and nonsteroidal anti-inflammatory medication sensitivity, History of chronic migraines History of obesity partly related to the use of systemic steroids History of atopic disease and multiple environmental ALLERGIES. Recommendation: Considering the patient is doing well, patient could be placed on a prednisone burst and taper 30 mg, tapered over 2 weeks, placed on Symbicort 160/82 puffs twice a day, continue Singulair, continue albuterol, and arrange for the patient to be discharged home today, follow-up with Dr. Christina in 2 weeks. Time with Patient: Less than 30
--- NOTE | 2017-02-26 20:14 | DS ---
DISCHARGE SUMMARY FINAL DIAGNOSIS: 1. Acute exacerbation of moderate obstructive asthma. 2. Morbid obesity, body mass index of greater than 30. 3. Seasonal allergies. 4. Leukocytosis likely from steroids. HOSPITAL COURSE: This is a patient with asthma exacerbation, treated with nebulized bronchodilators and steroids to which she is doing better today. EXAM: LUNGS: Improved air entry. CARDIOVASCULAR: First and second sounds normal. CONSULTATION: Dr. Burgos from pulmonary. DISCHARGE MEDICATIONS: 1. Singulair 10 mg q.h.s. 2. Prednisone taper as directed. 3. Ventolin HFA 2 puffs q.4h p.r.n. nebulizer 2 3 p.r.n. 4. Symbicort 160/4.5, 2 puffs b.i.d. FOLLOWUP: With Dr. Burgos on 03/04/2017. Follow up with Dr. Lo on 03/03/2017. MMODL / IJN: [id number] /
--- NOTE | 2017-03-24 17:27 | HP ---
HISTORY AND PHYSICAL ADDENDUM: Dictating addendum to history and physical. DATE OF ADMISSION: 02/24/17. SOCIAL HISTORY: The patient lives with her children. 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 Does not smoke. Alcohol rarely. FAMILY HISTORY: Patient is adopted. MMODL / IJN: [id number] /
== END 2017-02-26 12:32 | disposition home or self-care (01) | DRG 203 ==
LOC: EC 00:04 → 6PED 01:27
PROVIDERS: ADMIT Hospitalist; ATTEND Hospitalist
DX: J45.51 Severe persistent asthma with (acute) exacerbation (principal); E66.01 Morbid (severe) obesity due to excess calories; D72.829 Elevated white blood cell count, unspecified; G43.909 Migraine, unspecified, not intractable, without status migrainosus; T38.0X5A Adverse effect of glucocorticoids and synthetic analogues, initial encounter; Z79.899 Other long term (current) drug therapy; Z86.32 Personal history of gestational diabetes; Z91.14 Patient's other noncompliance with medication regimen; Z68.37 Body mass index [BMI] 37.0-37.9, adult; Z87.01 Personal history of pneumonia (recurrent); Z79.51 Long term (current) use of inhaled steroids; Z88.6 Allergy status to analgesic agent; Z88.1 Allergy status to other antibiotic agents; Z88.2 Allergy status to sulfonamides; Z88.8 Allergy status to other drugs, medicaments and biological substances; F41.9 Anxiety disorder, unspecified
CPT/HCPCS: 36415; 71020; 80048; 80053; 82550; 82553; 83735; 84484; 85025; 85610; 85730; 87040; 93005; 94640; 94644; 94760; 96365; 96375; 99291

== ENCOUNTER 2017-05-07 09:16 | Day surgery (SDC) | payer OTHER ==
[~2017-05-07 09:16] MED LIST: LACTATED RINGERS 1,000 ML IV SCH; LIDOCAINE 1% 20 ML VIAL (10MG/ML) FOR IV START INTRADERMA PRN
[2017-05-07 09:55] VITALS: TEMP 99.3
[2017-05-07] MEDS ORDERED: LIDOCAINE 1% 20 ML VIAL (10MG/ML) FOR IV START INTRADERMA ONE (09:55)
[2017-05-07 10:07] LABS: Glucose,Whole Blood 82 mg/dL (75-99)
[2017-05-07] MEDS ORDERED: PROPOFOL 10 MG/ML 20 ML VIAL IV ONE (10:13)
[2017-05-07] MEDS ORDERED: LIDOCAINE 1% INJ 10MG/ML (20 ML MDV) ONE (10:13)
--- NOTE | 2017-05-07 10:24 | P.PCN ---
Date of Procedure: 05/07/17 Procedure(s) Performed: BRIEF HISTORY: Patient is a 26-year-old, pleasant, white female, scheduled for an upper endoscopy as a part of evaluation of epigastric pain for the last several weeks duration. Pain is almost on a daily basis associated with nausea but no emesis. She was given a trial of Pepcid for 4 weeks with no help. She was recently started on Prilosec 20 mg daily for 2 weeks ago and still remains symptomatic. PROCEDURE PERFORMED: Esophagogastroduodenoscopy with biopsy. PREOPERATIVE DIAGNOSIS: Persistent epigastric pain of 2 months duration. IV sedation per anesthesia. PROCEDURE: After informed consent was obtained, the patient was brought into the endoscopy unit. IV sedation was administered by Anesthesia under continuous monitoring. Initially the Olympus GIF-140 video endoscope was inserted into the mouth. Esophagus intubated without any difficulty. It was gradually advanced into the stomach and duodenum and carefully examined. The bulb and the second part of the duodenum appeared normal. The scope at this time was withdrawn to the stomach, adequately insufflated with air, and upon careful examination, mucosa of the antrum,had mild antral gastritis and biopsies were done from this area. The body, cardia and the fundus appeared normal. The scope was then withdrawn into the esophagus. The GE junction was located at 39 cm from the incisors. The esophagus appeared normal. There were no erosions or ulcerations seen and the patient tolerated the procedure well. IMPRESSION: 1.Mild antral gastritis. 2.Normal-appearing esophagus with no evidence of esophagitis. RECOMMENDATIONS: The findings of this examination were discussed with the patient as well as her family. She was advised to follow with the biopsy results. She'll continue with Prilosec 20 mg daily and she'll be seen in the office in 2-3 weeks..
[2017-05-07 10:45] VITALS: BP 115/74; PULSE 74; RESP 18
== END 2017-05-07 11:23 | disposition home or self-care (01) ==
LOC: ORWHC2ENDO 09:16
PROVIDERS: ATTEND Internal Medicine Gastroenterology
DX: K21.0 Gastro-esophageal reflux disease with esophagitis (principal); K29.60 Other gastritis without bleeding; J45.909 Unspecified asthma, uncomplicated; Z79.51 Long term (current) use of inhaled steroids; Z79.52 Long term (current) use of systemic steroids; Z79.899 Other long term (current) drug therapy; Z88.6 Allergy status to analgesic agent; Z88.1 Allergy status to other antibiotic agents
CPT/HCPCS: 81025; 88305; 88342; 43239; J2001; J2704

== ENCOUNTER 2017-07-10 09:37 | Inpatient (IN) | payer OTHER ==
[2017-07-10] MEDS ORDERED: IPRATROPIUM-ALBUTEROL 3 ML NEB INHALATION STA ×2 (09:49→10:00)
[2017-07-10] MEDS ORDERED: ACETAMINOPHEN TAB 500 MG TAB PO STA (09:58)
[2017-07-10] MEDS ORDERED: methylPREDNISolone SOD SUCCI 125 MG/2 ML VIAL IV STA (09:59)
--- NOTE | 2017-07-10 10:03 | ED ---
General Adult HPI - General Chief complaint: Shortness of Breath Stated complaint: ASTHMA Time Seen by Provider: 07/10/17 09:40 Source: patient, RN notes reviewed Mode of arrival: ambulatory Limitations: no limitations - History of Present Illness Initial comments: This is a 26-year-old female who has a past medical history significant for asthma multiple admissions and even been on a ventilator in the past for asthma. Patient states she has been having some problems over the last week and starting yesterday she got significantly worse and today she felt significantly worse again. Patient states she's had a cough but no sputum production. Patient denies any fever today. Patient denies any chest pain. Patient denies abdominal pain patient denies nausea vomiting diarrhea. Patient states she's increased her steroids yesterday and today but she still hasn't improved patient states she has been taking home breathing treatments but again didn't feel as though she was improving and she wanted to him before she got severely dyspneic - Related Data Home Medications Medication Instructions Recorded Confirmed Acetaminophen Tab [Tylenol] 1,000 mg PO Q6HR PRN 03/24/17 07/10/17 Mometasone/Formoterol [Dulera 100 1 puff INHALATION RT-BID 03/24/17 07/10/17 Mcg/5 Mcg Inhaler] predniSONE [predniSONE] 10 mg PO QAM 05/06/17 07/10/17 predniSONE 40 - 60 mg PO DIRECTED 07/10/17 07/10/17 Previous Rx's Medication Instructions Recorded Albuterol Inhaler [Ventolin Hfa 2 puff INHALATION RT-Q4H PRN #1 02/26/17 Inhaler] puff Albuterol Nebulized [Ventolin 2.5 mg INHALATION RT-Q3H PRN #100 02/26/17 Nebulized] nebu Montelukast [Singulair] 10 mg PO HS #30 tab 03/27/17 Allergies Allergy/AdvReac Type Severity Reaction Status Date / Time amoxicillin [Amoxicillin] Allergy Severe Rash/Hives Verified 07/10/17 09:52 ciprofloxacin [From Cipro] Allergy Severe Rash/Hives Verified 07/10/17 09:52 ciprofloxacin HCl Allergy Severe Rash/Hives Verified 07/10/17 09:52 [From Cipro] fluticasone propionate Allergy Severe Rash/Hives Verified 07/10/17 09:52 [From Advair Diskus] levofloxacin Allergy Severe Rash/Hives Verified 07/10/17 09:52 Proton Pump Inhibitors Allergy Severe Rash/Hives Verified 07/10/17 09:52 salmeterol xinafoate Allergy Severe Rash/Hives Verified 07/10/17 09:52 [From Advair Diskus] sulfamethoxazole Allergy Intermediate Rash/Hives Verified 07/10/17 09:52 [From Bactrim] trimethoprim [From Bactrim] Allergy Intermediate Rash/Hives Verified 07/10/17 09 :52 ketorolac tromethamine Allergy Anaphylaxis Verified 07/10/17 09:52 [From Toradol] NSAIDS (Non-Steroidal Allergy Anaphylaxis Verified 07/10/17 09:52 Anti-Inflamma zomig Allergy Severe Anaphylaxis Uncoded 05/06/17 09:03 PROPELLE Allergy Unknown Uncoded 05/06/17 09:03 Review of Systems ROS Statement: Those systems with pertinent positive or pertinent negative responses have been documented in the HPI. ROS Other: All systems not noted in ROS Statement are negative. Past Medical History Past Medical History: Asthma, Pneumonia Additional Past Medical History / Comment(s): RECENT HOSPITALIZTIONS FOR ASHTMA , PNEUMONIA (LAST ADM AT [facility] ON 04/13, [employer]AY COMPRISED). Severe persistent bronchial asthma. ALLERGIES. HX: Migraines, sinusitis, palpitaions, pneumoni, -induced hypertension, gestational diabetes (secondary to steroids during ). History of Any Multi-Drug Resistant Organisms: None Reported Past Surgical History: Section, Tubal Ligation Additional Past Surgical History / Comment(s): 4 nasal polypectomies, 2 C- Sections Past Anesthesia/Blood Transfusion Reactions: No Reported Reaction Past Psychological History: No Psychological Hx Reported Smoking Status: Never smoker Past Alcohol Use History: Rare Past Drug Use History: None Reported - Past Family History Father Family Medical History: Unable to Obtain Additional Family Medical History / Comment(s): Pt was adopted mother Family Medical History: Unable to Obtain Additional Family Medical History / Comment(s): pt is adopted and does not know family history General Exam - General Exam Comments Initial Comments: GENERAL: Patient is well-developed and well-nourished. Patient is nontoxic and well- hydrated and is in mild distress. ENT: Neck is soft and supple. No significant lymphadenopathy is noted. Oropharynx is clear. Moist mucous membranes. Neck has full range of motion without eliciting any pain. EYES: The sclera were anicteric and conjunctiva were pink and moist. Extraocular movements were intact and pupils were equal round and reactive to light. Eyelids were unremarkable. PULMONARY: Patient is wheezing diffusely CARDIOVASCULAR: There is a regular rate and rhythm without any murmurs gallops or rubs. ABDOMEN: Soft and nontender with normal bowel sounds. No palpable organomegaly was noted. There is no palpable pulsatile mass. SKIN: Skin is clear with no lesions or rashes and otherwise unremarkable. NEUROLOGIC: Patient is alert and oriented x3. Cranial nerves II through XII are grossly intact. Motor and sensory are also intact. Normal speech, volume and content. Symmetrical smile. MUSCULOSKELETAL: Normal extremities with adequate strength and full range of motion. LYMPHATICS: No significant lymphadenopathy is noted PSYCHIATRIC: Normal psychiatric evaluation. Limitations: no limitations Course Vital Signs 07/10/17 07/10/17 07/10/17 09:40 09:57 09:58 Temperature 98.6 F 100.5 F H Pulse Rate 133 H 130 H Respiratory 28 H Rate Blood Pressure 165/88 O2 Sat by Pulse 96 Oximetry 07/10/17 07/10/17 07/10/17 10:07 10:15 11:44 Temperature 98.3 F Pulse Rate 126 H 112 H 96 Respiratory 20 Rate Blood Pressure 148/77 O2 Sat by Pulse 96 Oximetry Medical Decision Making - Medical Decision Making EKG shows normal sinus rhythm at 90 bpm WA interval is 132 QRS is 84 QT interval 344 QTC is 441. Patient's EKG shows no ST segment elevation or depression or T wave abnormalities are noted Chest x-ray showed possible bronchitis. I started the patient on Rocephin because the low-grade fever and her significant dyspnea. I went back in and reevaluated the patient after she had multiple breathing treatments and steroids and she continued to wheeze diffusely though she felt a little better she was not anywhere near her baseline. I spoke with Dr. Larson admitted the patient I wrote admitting orders. - Lab Data Result diagrams: 07/10/17 10:20 07/10/17 10:20 Lab Results 07/10/17 07/10/17 07/10/17 Range/Units 10:20 10:20 10:20 WBC 12.9 H (3.8-10.6) k/uL RBC 5.26 (3.80-5.40) m/uL Hgb 14.5 (11.4-16.0) gm/dL Hct 44.3 (34.0-46.0) % MCV 84.2 (80.0-100.0) fL MCH 27.5 (25.0-35.0) pg MCHC 32.6 (31.0-37.0) g/dL RDW 14.8 (11.5-15.5) % Plt Count 343 (150-450) k/uL Neutrophils % 80 % Lymphocytes % 12 % Monocytes % 6 % Eosinophils % 1 % Basophils % 0 % Neutrophils # 10.3 H (1.3-7.7) k/uL Lymphocytes # 1.6 (1.0-4.8) k/uL Monocytes # 0.7 (0-1.0) k/uL Eosinophils # 0.2 (0-0.7) k/uL Basophils # 0.0 (0-0.2) k/uL PT (9.0-12.0) sec INR (<1.2) APTT (22.0-30.0) sec Sodium 145 (137-145) mmol/L Potassium 4.3 (3.5-5.1) mmol/L Chloride 107 (98-107) mmol/L Carbon Dioxide 23 (22-30) mmol/L Anion Gap 15 mmol/L BUN 13 (7-17) mg/dL Creatinine 0.70 (0.52-1.04) mg/dL Est GFR (CKD-EPI)AfAm >90 (>60 ml/min/1.73 sqM) Est GFR (CKD-EPI)NonAf >90 (>60 ml/min/1.73 sqM) Glucose 104 H (74-99) mg/dL Plasma Lactic Acid Mark (0.7-2.0) mmol/L Calcium 10.3 H (8.4-10.2) mg/dL Total Bilirubin 0.5 (0.2-1.3) mg/dL AST 16 (14-36) U/L ALT 33 (9-52) U/L Alkaline Phosphatase 44 (38-126) U/L Total Protein 7.7 (6.3-8.2) g/dL Albumin 4.6 (3.5-5.0) g/dL Urine Color Urine Appearance (Clear) Urine pH (5.0-8.0) Ur Specific [place] (1.001-1.035) Urine Protein (Negative) Urine Glucose (UA) (Negative) Urine Ketones (Negative) Urine Blood (Negative) Urine Nitrite (Negative) Urine Bilirubin (Negative) Urine Urobilinogen (<2.0) mg/dL Ur Leukocyte Esterase (Negative) Urine WBC (0-5) /hpf Ur Squamous Epith Cells (0-4) /hpf Urine Bacteria (None) /hpf Urine Mucus (None) /hpf Influenza Type A RNA Not Detected (Not Detectd) Influenza Type B (PCR) Not Detected (Not Detectd) 07/10/17 07/10/17 07/10/17 Range/Units 10:20 10:20 10:20 WBC (3.8-10.6) k/uL RBC (3.80-5.40) m/uL Hgb (11.4-16.0) gm/dL Hct (34.0-46.0) % MCV (80.0-100.0) fL MCH (25.0-35.0) pg MCHC (31.0-37.0) g/dL RDW (11.5-15.5) % Plt Count (150-450) k/uL Neutrophils % % Lymphocytes % % Monocytes % % Eosinophils % % Basophils % % Neutrophils # (1.3-7.7) k/uL Lymphocytes # (1.0-4.8) k/uL Monocytes # (0-1.0) k/uL Eosinophils # (0-0.7) k/uL Basophils # (0-0.2) k/uL PT 10.2 (9.0-12.0) sec INR 1.0 (<1.2) APTT 21.2 L (22.0-30.0) sec Sodium (137-145) mmol/L Potassium (3.5-5.1) mmol/L Chloride (98-107) mmol/L Carbon Dioxide (22-30) mmol/L Anion Gap mmol/L BUN (7-17) mg/dL Creatinine (0.52-1.04) mg/dL Est GFR (CKD-EPI)AfAm (>60 ml/min/1.73 sqM) Est GFR (CKD-EPI)NonAf (>60 ml/min/1.73 sqM) Glucose (74-99) mg/dL Plasma Lactic Acid Mark 1.5 (0.7-2.0) mmol/L Calcium (8.4-10.2) mg/dL Total Bilirubin (0.2-1.3) mg/dL AST (14-36) U/L ALT (9-52) U/L Alkaline Phosphatase (38-126) U/L Total Protein (6.3-8.2) g/dL Albumin (3.5-5.0) g/dL Urine Color Yellow Urine Appearance Cloudy H (Clear) Urine pH 6.5 (5.0-8.0) Ur Specific [place] 1.022 (1.001-1.035) Urine Protein Trace H (Negative) Urine Glucose (UA) Negative (Negative) Urine Ketones Negative (Negative) Urine Blood Negative (Negative) Urine Nitrite Negative (Negative) Urine Bilirubin Negative (Negative) Urine Urobilinogen <2.0 (<2.0) mg/dL Ur Leukocyte Esterase Small H (Negative) Urine WBC 6 H (0-5) /hpf Ur Squamous Epith Cells 53 H (0-4) /hpf Urine Bacteria Rare H (None) /hpf Urine Mucus Occasional H (None) /hpf Influenza Type A RNA (Not Detectd) Influenza Type B (PCR) (Not Detectd) Critical Care Time Critical Care Time: Yes Total Critical Care Time: 35 Disposition Clinical Impression: Status asthmaticus Disposition: ADMITTED IP TO THIS HOSP Referrals: Lucien Lo MD [Primary Care Provider] - 1-2 days Time of Disposition: 11:54
[2017-07-10] MEDS: IBUPROFEN 600 MG TAB PO STA ×2 (10:35→10:36)
[2017-07-10 10:37] LABS: Basophils % (A) 0 %; Eosinophils # (A) 0.2 k/uL (0-0.7); Eosinophils % (A) 1 %; HCT 44.3 % (34.0-46.0); HGB 14.5 gm/dL (11.4-16.0); Lymphocytes # (A) 1.6 k/uL (1.0-4.8); Lymphocytes % (A) 12 %; MCH 27.5 pg (25.0-35.0); MCHC 32.6 g/dL (31.0-37.0); MCV 84.2 fL (80.0-100.0); Mean Platelet Volume 7.5; Monocytes # (A) 0.7 k/uL (0-1.0); Monocytes % (A) 6 %; Neutrophils # (A) 10.3 k/uL (1.3-7.7); Neutrophils % (A) 80 %; Platelet Count 343 k/uL (150-450); RBC 5.26 m/uL (3.80-5.40); RDW 14.8 % (11.5-15.5); WBC 12.9 k/uL (3.8-10.6)
[2017-07-10 10:45] LABS: Prothrombin Time 10.2 sec (9.0-12.0)
[2017-07-10 10:49] LABS: ALT 33 U/L (9-52); AST 16 U/L (14-36); Albumin 4.6 g/dL (3.5-5.0); Alkaline Phosphatase 44 U/L (38-126); Anion Gap 15 mmol/L; Blood Urea Nitrogen 13 mg/dL (7-17); Calcium 10.3 mg/dL (8.4-10.2); Carbon Dioxide 23 mmol/L (22-30); Chloride 107 mmol/L (98-107); Glucose 104 mg/dL (74-99); Potassium 4.3 mmol/L (3.5-5.1); Sodium 145 mmol/L (137-145); Total Bilirubin 0.5 mg/dL (0.2-1.3); Total Protein 7.7 g/dL (6.3-8.2)
[2017-07-10 10:52] LABS: Partial Thromboplastin Time 21.2 sec (22.0-30.0)
[2017-07-10 10:54] LABS: Appearance,Urine Cloudy (Clear); Bacteria,Urine Rare /hpf; Bilirubin,Urine Negative (Negative); Blood,Urine Negative (Negative); Color,Urine Yellow; Glucose,Urine (UA) Negative (Negative); Ketones,Urine Negative (Negative); Leukocyte Esterase,Urine Small (Negative); Mucus,Urine Occasional /hpf; Nitrite,Urine Negative (Negative); PH, Urine 6.5 (5.0-8.0); Protein,Urine Trace (Negative); Specific Gravity,Urine 1.022 (1.001-1.035); Squamous Epithelial Cell,Urine 53 /hpf (0-4); Urobilinogen,Urine <2.0 mg/dL (<2.0); WBC,Urine 6 /hpf (0-5)
--- NOTE | 2017-07-10 11:10 | XR ---
EXAMINATION TYPE: XR chest 2V DATE OF EXAM: 07/10/2017 COMPARISON: Prior chest 03/26/2017 and 05/29/2017 HISTORY: Fever, cough and congestion TECHNIQUE: Frontal and lateral views of the chest are obtained. FINDINGS: There is no focal air space opacity, pleural effusion, or pneumothorax seen. The cardiac silhouette size is within normal limits. There is bronchial wall thickening. The osseous structures are intact. IMPRESSION: Correlate for bronchitis, reactive airways disease.
[2017-07-10] MEDS ORDERED: cefTRIAXone IN SWFI 1,000 MG/10 ML SYRINGE IVP STA (11:53)
[2017-07-10] MEDS ORDERED: IPRATROPIUM-ALBUTEROL 3 ML NEB INHALATION PRN (11:54)
[2017-07-10] MEDS: methylPREDNISolone SOD SUCCI 125 MG/2 ML VIAL IV SCH ×2 (12:06→17:21)
[2017-07-10] MEDS ORDERED: diphenhydrAMINE 50 MG/ML 1 ML VIAL IVP STA (12:14)
[2017-07-10] MEDS ORDERED: ONDANSETRON 4 MG/2 ML VIAL IVP PRN (12:38)
[2017-07-10] MEDS ORDERED: NALOXONE 0.4 MG/ML 1 ML VIAL IV PRN (12:38)
[2017-07-10] MEDS ORDERED: MELATONIN 3 MG TABLET PO PRN (12:38)
[2017-07-10] MEDS ORDERED: LACTULOSE 20 GM/30 ML CUP PO PRN (12:38)
[2017-07-10] MEDS ORDERED: MAGNESIUM HYDROXIDE 2,400 MG/10 ML CUP PO PRN (12:38)
[2017-07-10] MEDS ORDERED: LORazepam 0.5 MG TAB PO PRN (12:38)
[2017-07-10] MEDS ORDERED: CALCIUM CARBONATE 500 MG CHEWABLE PO PRN (12:38)
[2017-07-10] MEDS: ENOXAPARIN 40 MG/0.4 ML SYRINGE SQ SCH (13:01)
[2017-07-10] MEDS: ALBUTEROL NEBULIZED 2.5 MG/3 ML INHALATION SCH ×2 (15:08)
[2017-07-10] MEDS ORDERED: PROMETHAZ-COD 6.25-10 MG/5 ML 5 ML CUP PO PRN (16:14)
--- NOTE | 2017-07-10 16:14 | P.CNPUL ---
History of Present Illness Consult date: 07/10/17 Reason for consult: dyspnea, cough, asthma Chief complaint: Shortness of breath, asthma exacerbation History of present illness: Consult dated 07/10/2017 26-year-old female well-known to our service. She has a history of severe chronic bronchial asthma. She is maintained on albuterol updrafts, albuterol inhaler, Dulera 200/5, 2 puffs twice a day and Singulair 10 mg at bedtime. She is also on her normal dose of prednisone about 10 mg a day. She typically sees my partner, Dr. Christina in the office. She was seen in the emergency room this morning by Dr. Barahona. She came with complaints of increasing shortness of breath chest tightness wheezing and cough coughing up a small amount of phlegm. Over the last week she bumped her prednisone dose up to 40 mg a day. She knows how to adjust her own dose. Anyway Dr. Barahona saw her down there and he decided to admit her for an asthma exacerbation. Chest x-ray shows some bronchitic changes and reactive airway disease changes but nothing acute in way of pneumonia or fluid. Typically she is in the hospital for a couple days getting IV corticosteroids breathing treatments and some oral antibiotics. Review of Systems A 12 point review of system is positive for shortness of breath chest tightness wheezing and cough. Past Medical History Past Medical History: Asthma, Pneumonia Additional Past Medical History / Comment(s): Asthma and has been on ventilator in the past, severe persistent bronchitis, pneumonias, pneumonia with sepsis, seasonal allergies, migraines, sinusitis, nasal polyps, aspirin/nsaid allergies , palpitaions, -induced hypertension, gestational diabetes (secondary to steroids during ). History of Any Multi-Drug Resistant Organisms: None Reported Past Surgical History: Section, Tubal Ligation Additional Past Surgical History / Comment(s): Bronchosopies, 4 nasal polypectomies, 2 C-Sections, PICC line insertion/removed Past Anesthesia/Blood Transfusion Reactions: No Reported Reaction Smoking Status: Never smoker - Past Family History Father Family Medical History: Unable to Obtain Additional Family Medical History / Comment(s): Pt was adopted mother Family Medical History: Unable to Obtain Additional Family Medical History / Comment(s): pt is adopted and does not know family history Medications and Allergies Home Medications Medication Instructions Recorded Confirmed Type Albuterol Inhaler [Ventolin Hfa 2 puff INHALATION RT-Q4H PRN #1 02/26/17 Rx Inhaler] puff Albuterol Nebulized [Ventolin 2.5 mg INHALATION RT-Q3H PRN #100 02/26/17 Rx Nebulized] nebu Acetaminophen Tab [Tylenol] 1,000 mg PO Q6HR PRN 03/24/17 07/10/17 History Mometasone/Formoterol [Dulera 100 1 puff INHALATION RT-BID 03/24/17 07/10/17 History Mcg/5 Mcg Inhaler] Montelukast [Singulair] 10 mg PO HS #30 tab 03/27/17 07/10/17 Rx predniSONE [predniSONE] 10 mg PO QAM 05/06/17 07/10/17 History predniSONE 40 - 60 mg PO DIRECTED 07/10/17 07/10/17 History Allergies Allergy/AdvReac Type Severity Reaction Status Date / Time amoxicillin [Amoxicillin] Allergy Severe Rash/Hives Verified 07/10/17 09:52 ciprofloxacin [From Cipro] Allergy Severe Rash/Hives Verified 07/10/17 09:52 ciprofloxacin HCl Allergy Severe Rash/Hives Verified 07/10/17 09:52 [From Cipro] fluticasone propionate Allergy Severe Rash/Hives Verified 07/10/17 09:52 [From Advair Diskus] levofloxacin Allergy Severe Rash/Hives Verified 07/10/17 09:52 Proton Pump Inhibitors Allergy Severe Rash/Hives Verified 07/10/17 09:52 salmeterol xinafoate Allergy Severe Rash/Hives Verified 07/10/17 09:52 [From Advair Diskus] zolmitriptan [From Zomig] Allergy Severe Anaphylaxis Verified 07/10/17 11:54 sulfamethoxazole Allergy Intermediate Rash/Hives Verified 07/10/17 09:52 [From Bactrim] trimethoprim [From Bactrim] Allergy Intermediate Rash/Hives Verified 07/10/17 09 :52 ketorolac tromethamine Allergy Anaphylaxis Verified 07/10/17 09:52 [From Toradol] NSAIDS (Non-Steroidal Allergy Anaphylaxis Verified 07/10/17 09:52 Anti-Inflamma PROPELLE Allergy Unknown Uncoded 05/06/17 09:03 Physical Exam Osteopathic Statement: *. No significant issues noted on an osteopathic structural exam other than those noted in the History and Physical/Consult. Vitals: Vital Signs Temp Pulse Pulse Resp BP BP BP 07/10/17 15:19 73 07/10/17 15:08 68 07/10/17 15:00 98.7 F 87 18 99/55 07/10/17 13:03 20 07/10/17 12:20 99.1 F 67 16 148/88 07/10/17 11:44 98.3 F 96 20 148/77 07/10/17 10:15 112 H 07/10/17 10:07 126 H 07/10/17 09:58 100.5 F H 07/10/17 09:57 130 H 07/10/17 09:40 98.6 F 133 H 28 H 165/88 Pulse Ox 07/10/17 15:19 07/10/17 15:08 07/10/17 15:00 95 07/10/17 13:03 07/10/17 12:20 97 07/10/17 11:44 96 07/10/17 10:15 07/10/17 10:07 07/10/17 09:58 07/10/17 09:57 07/10/17 09:40 96 Intake and Output 07/10/17 07/10/17 07/10/17 06:59 14:59 22:59 Other: # Voids 1 Weight 96.162 kg No acute distress, oriented 3. HEENT examination is grossly unremarkable. Mucous membranes are moist. No oral lesions. Neck supple. Full range of motion. No adenopathy thyromegaly or neck vein distention. Cardiovascular examination reveals regular rhythm rate. S1-S2 normal. No S3 or S4. No discernible murmur noted. There is mild tachycardia. Lungs reveal diffuse inspiratory and expiratory wheezes and rhonchi. Breath sounds are diminished. There is prolongation on forced maneuver. The patient coughs and wheezes on forced maneuver.. Abdomen soft bowel sounds are heard. No masses or tenderness. Extremities are intact. No cyanosis clubbing or edema. Skin is without rash or lesion. Neurologic examination is brief but nonfocal. Results - Laboratory Findings CBC and BMP: 07/10/17 10:20 07/10/17 10:20 PT/INR, D-dimer PT 10.2 sec (9.0-12.0) 07/10/17 10:20 INR 1.0 (<1.2) 07/10/17 10:20 Abnormal lab findings: Abnormal Labs 07/10/17 07/10/17 07/10/17 10:20 10:20 10:20 WBC 12.9 H Neutrophils # 10.3 H APTT 21.2 L Glucose 104 H Calcium 10.3 H Urine Appearance Urine Protein Ur Leukocyte Esterase Urine WBC Ur Squamous Epith Cells Urine Bacteria Urine Mucus 07/10/17 10:20 WBC Neutrophils # APTT Glucose Calcium Urine Appearance Cloudy H Urine Protein Trace H Ur Leukocyte Esterase Small H Urine WBC 6 H Ur Squamous Epith Cells 53 H Urine Bacteria Rare H Urine Mucus Occasional H - Diagnostic Findings Chest x-ray: image reviewed (X-ray labs and medications are reviewed.) Assessment and Plan Assessment: Assessment Acute exacerbation of severe persistent chronic bronchial asthma Multiple admissions to the hospital for same Purulent tracheobronchitis Chronic steroid dependence Previous history of pneumonia Plan: Plan dated 07/10/2017 The patient will be started on usual regimen of short acting beta agonist, short acting muscarinic antagonist, long-acting beta agonist, and inhaled corticosteroids. In addition, the patient be given Solu-Medrol 60 mg every 6 and be started on an oral antibiotic. In addition, you could add some mucolytics expectorants as well. Also, some codeine containing cough syrup would not be inappropriate such as Phenergan with codeine, promethazine with codeine, or Tussionex. Additional recommendations and suggestions are forthcoming. Chest x-ray does not reveal any infiltrates. Time with Patient: Greater than 30
[2017-07-10] MEDS ORDERED: ACETAMINOPHEN TAB 500 MG TAB PO PRN (16:30)
[2017-07-10 17:04] LABS: Glucose,Whole Blood 118 mg/dL (75-99)
[2017-07-10] MEDS: INSULIN ASPART 100 UNIT/ML 1 ML 10 ML VIAL SQ SCH ×2 (17:20→22:31)
[2017-07-10] MEDS: FORMOTEROL FUMARATE 20 MCG/2 ML NEBU INHALATION SCH (19:05)
[2017-07-10] MEDS: BUDESONIDE 1 MG/2 ML NEBU INHALATION SCH (19:05)
[2017-07-10] MEDS: IPRATROPIUM-ALBUTEROL 3 ML NEB INHALATION SCH (19:06)
[2017-07-10 20:59] LABS: Glucose,Whole Blood 148 mg/dL (75-99)
--- NOTE | 2017-07-10 21:31 | HP ---
HISTORY AND PHYSICAL DATE OF SERVICE: 07/10/2017 PRESENTING COMPLAINT: Short of breath, wheezing, cough. HISTORY OF PRESENTING COMPLAINT: This is a 26-year-old patient of Dr. Lo and also follows with implementation advisor Dr. Christina. Chronic stable medical conditions include migraine, sinusitis, seasonal allergies. The patient has known asthma. The patient yesterday started up off with wheezing, cough, some yellow sputum, low-grade fever, tired, run down, very short of breath and came down to the ER. The patient found to have an asthma exacerbation, being admitted for the same. REVIEW OF SYSTEMS: CONSTITUTIONAL: Tired. HEENT: None. RESPIRATORY: As above. CARDIOVASCULAR: None. GASTROINTESTINAL: None. GENITOURINARY: None. MUSCULOSKELETAL: Some chronic low back pain. DERMATOLOGICAL: None. HEMATOLOGIC: None. LYMPHATIC: None. PSYCHIATRY: Some anxiety. NEUROLOGICAL: None. PAST MEDICAL HISTORY: Seasonal allergies, sinusitis, migraine, asthma, nasal polyposis, aspirin sensitivity. PAST SURGICAL HISTORY: , tubal ligation, nasal polypectomies. 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 Does not smoke or drink alcohol. FAMILY HISTORY: Patient is adopted. HOME MEDICATIONS: 1. Prednisone 10 mg a day. 2. Singulair 10 mg q.h.s. 3. Dulera 100/5 one puff b.i.d. 4. Ventolin 2.5 q.3h p.r.n. plus nebulizer. 5. Tylenol 1000 mg every 6 hours p.r.n. ALLERGY: List is long, including AMOXICILLIN, CIPRO, ADVAIR, LEVAQUIN, PPI, ZOMIG, BACTRIM, TYLENOL, NSAID, . PHYSICAL EXAMINATION: VITAL SIGNS: On presentation, temperature 100.5, pulse 130, respirations 28, blood pressure 165/88 repeat 148/77 pulse ox 96% on 2L. GENERAL APPEARANCE: Well built, BMI 36.4. Sitting up, short of breath. EYES: Pupils equal. Conjunctivae normal. HEENT: External nose and ears normal. Oral cavity normal. NECK: JVD not raised. Mass not palpable. Respiratory effort increased. Some diminished breath sounds. Prolonged expiration, wheezing. Patient not able to complete full sentences. CARDIOVASCULAR: First and second sounds. No edema. ABDOMEN: Soft, nontender. Liver and spleen not palpable. LYMPHATIC: No lymph node palpable in neck or axillae. PSYCHIATRY: Alert and oriented x3. Mood and affect slightly anxious-appearing. NEUROLOGICAL: Pupils equal. Cranial nerves grossly intact. Power and sensation grossly intact. INVESTIGATIONS: White count 12.9, hemoglobin 14.5. Potassium 4.3, BUN and creatinine are normal. Influenza A and B are negative. X-ray did not report any infiltrates. ASSESSMENT: 1. Acute exacerbation of moderate obstructive asthma. 2. Obesity, BMI 36.4. 3. Seasonal allergies. 4. Probably acute bronchitis/tracheobronchitis causing sepsis, present on admission. PLAN: The patient is started on nebulized bronchodilators, steroids. Also received ceftriaxone in the ER. Will continue with the same. Pulmonary is being consulted. Care was discussed with the patient. MAAME / SYD: [id number] /
[2017-07-10] MEDS: MONTELUKAST 10 MG TAB PO SCH (22:31)
[2017-07-11] MEDS: methylPREDNISolone SOD SUCCI 125 MG/2 ML VIAL IV SCH ×2 (00:32→06:28)
[2017-07-11] MEDS: FORMOTEROL FUMARATE 20 MCG/2 ML NEBU INHALATION SCH ×2 (07:01→19:45)
[2017-07-11] MEDS: IPRATROPIUM-ALBUTEROL 3 ML NEB INHALATION SCH ×4 (07:01→19:45)
[2017-07-11] MEDS: BUDESONIDE 1 MG/2 ML NEBU INHALATION SCH ×2 (07:01→19:45)
[2017-07-11 07:19] LABS: Glucose,Whole Blood 122 mg/dL (75-99)
[2017-07-11] MEDS: INSULIN ASPART 100 UNIT/ML 1 ML 10 ML VIAL SQ SCH ×4 (07:44→20:59)
[2017-07-11] MEDS: ENOXAPARIN 40 MG/0.4 ML SYRINGE SQ SCH (07:49)
[2017-07-11] MEDS: AZITHROMYCIN 500 MG TAB PO SCH (07:49)
[2017-07-11] MEDS: diphenhydrAMINE 50 MG/ML 1 ML VIAL IVP PRN (10:27)
[2017-07-11] MEDS: cefTRIAXone IN SWFI 1,000 MG/10 ML SYRINGE IVP SCH (10:28)
[2017-07-11 11:12] LABS: Glucose,Whole Blood 128 mg/dL (75-99)
--- NOTE | 2017-07-11 11:38 | P.PN ---
Subjective Progress Note Date: 07/11/17 Principal diagnosis: Acute exacerbation of severe persistent chronic bronchial asthma Consult dated 07/10/2017 26-year-old female well-known to our service. She has a history of severe chronic bronchial asthma. She is maintained on albuterol updrafts, albuterol inhaler, Dulera 200/5, 2 puffs twice a day and Singulair 10 mg at bedtime. She is also on her normal dose of prednisone about 10 mg a day. She typically sees my partner, Dr. Christina in the office. She was seen in the emergency room this morning by Dr. Barahona. She came with complaints of increasing shortness of breath chest tightness wheezing and cough coughing up a small amount of phlegm. Over the last week she bumped her prednisone dose up to 40 mg a day. She knows how to adjust her own dose. Anyway Dr. Barahona saw her down there and he decided to admit her for an asthma exacerbation. Chest x-ray shows some bronchitic changes and reactive airway disease changes but nothing acute in way of pneumonia or fluid. Typically she is in the hospital for a couple days getting IV corticosteroids breathing treatments and some oral antibiotics. On 07/11/2017 patient seen in follow-up on medical surgical floor. She states her breathing is improving, denies any acute distress. Lung sounds are diminished, with faint end expiratory wheezes on forced exhale maneuver. She is on 2 L per nasal cannula with O2 sat 97%. She is afebrile, hemodynamically stable. She hasn't a productive cough with production of white and at times green sputum. She has been ambulating to the bathroom, tolerating activity well. She is requesting her steroids to be tapered down to 40 mg every 8 hours , as she is concerned about acute withdrawal with abrupt switched to oral prednisone. Overall she states she is feeling better today. From pulmonary standpoint she could be considered for discharge home potentially today. Objective - Vital Signs Vital signs: Vital Signs Temp 97.7 F 07/11/17 06:03 Pulse 75 07/11/17 07:23 Resp 16 07/11/17 06:03 BP 105/58 07/11/17 06:03 Pulse Ox 97 07/11/17 06:03 Intake & Output 07/10/17 07/11/17 07/11/17 18:59 06:59 18:59 Intake Total 540 Balance 540 Weight 96.162 kg Intake: Oral 540 Other: Voiding Method Toilet # Voids 1 1 - Exam GENERAL EXAM: Alert, pleasant 26-year-old white female comfortable in no apparent distress. HEAD: Normocephalic/atraumatic. EYES: Normal reaction of pupils, equal size. Conjunctiva pink, sclera white. NOSE: Clear with pink turbinates. THROAT: No erythema or exudates. NECK: No masses, no JVD, no thyroid enlargement, no adenopathy. CHEST: No chest wall deformity. Symmetrical expansion. LUNGS: Diminished air entry bilaterally, with faint end expiratory wheezes CVS: Regular rate and rhythm, normal S1 and S2, no gallops, no murmurs, no rubs ABDOMEN: Soft, nontender. No hepatosplenomegaly, normal bowel sounds, no guarding or rigidity. EXTREMITIES: No clubbing, no edema, no cyanosis, 2+ pulses and upper and lower extremities. MUSCULOSKELETAL: Muscle strength and tone normal. SPINE: No scoliosis or deformity SKIN: No rashes CENTRAL NERVOUS SYSTEM: Alert and oriented -3. No focal deficits, tone is normal in all 4 extremities. PSYCHIATRIC: Alert and oriented -3. Appropriate affect. Intact judgment and insight. - Labs CBC & Chem 7: 07/10/17 10:20 07/10/17 10:20 Labs: Abnormal Lab Results - Last 24 Hours (Table) 07/10/17 07/10/17 07/11/17 Range/Units 16:57 20:50 07:14 POC Glucose (mg/dL) 118 H 148 H 122 H (75-99) mg/dL 07/11/17 Range/Units 11:08 POC Glucose (mg/dL) 128 H (75-99) mg/dL Microbiology - Last 24 Hours (Table) 07/10/17 10:20 Urine Culture - Preliminary Urine,Voided Assessment and Plan Plan: Assessment: Acute exacerbation of severe persistent chronic bronchial asthma Multiple admissions to the hospital for same Purulent tracheobronchitis Chronic steroid dependence Previous history of pneumonia Plan: Continue current plan of care, we will decrease the steroids to 40 mg every 8 hours. Continue current antibiotic coverage with Zithromax, and Rocephin, continue Pulmicort, Perforomist, DuoNeb. Patient is improving, states her breathing is easier. Vital signs are stable, she is tolerating ambulation, she could be considered for discharge potentially today. Follow-up with Dr. Christina/Kalina Hutchinson and in the office next week I performed a history & physical examination of the patient and discussed their management with my nurse practitioner, Yeni Dorantes. I reviewed the nurse practitioner's note and agree with the documented findings and plan of care. Lung sounds are positive for diminished lung sounds bilaterally, with end expiratory wheezes. The findings and the impression was discussed with the patient. I attest to the documentation by the nurse practitioner. Time with Patient: Less than 30
[2017-07-11 14:34] LABS: Hemoglobin A1C 5.3 % (4.0-6.0)
--- NOTE | 2017-07-11 16:11 | PN ---
PROGRESS NOTE DATE OF SERVICE: 07/11/17. PRESENTING COMPLAINT: Short of breath, wheezing. INTERVAL HISTORY: Patient admitted with acute asthma exacerbation. Breathing a shade better. Still got a cough and clear sputum. Did tolerate some diet. Did not sleep too well. She fell from the steroids. Lying in bed tired. REVIEW OF SYSTEMS: Done for constitutional, cardiovascular, GI, pulmonary; relevant findings as above. CURRENT MEDICATIONS: Reviewed that include DuoNeb and IV steroids. PHYSICAL EXAMINATION: Temperature 97.7, pulse 75, respiration 20, blood pressure 105/58, pulse ox 97% on 2 L. GENERAL APPEARANCE: Lying in bed, tired appearing. EYES: Pupils equal. Conjunctivae normal. HEENT: External appearance of nose and ears normal. Oral cavity normal. NECK: JVD not raised. Mass not palpable. RESPIRATORY: Effort increased. Lungs decreased breath sounds. Prolonged expiration, wheezing. Shade better. CARDIOVASCULAR: First and second sounds, no edema. ABDOMEN: Soft, nontender. Liver and spleen not palpable. PSYCHIATRY: Alert and oriented x3. Mood is slightly anxious-appearing. INVESTIGATIONS: Accu-Cheks are noted. ASSESSMENT: 1. Acute exacerbation of moderate obstructive asthma, slow to respond. 2. Obesity, BMI 36.4. 3. Seasonal allergies. 4. Acute bronchitis/tracheobronchitis causing sepsis present on admission. PLAN: Continue current medication and treatment plan. Care was discussed with the patient. Follow with Pulmonary. MMBEEL / ISIDRON: [id number] /
[2017-07-11 17:12] LABS: Glucose,Whole Blood 137 mg/dL (75-99)
[2017-07-11] MEDS: methylPREDNISolone SOD SUCCI 40 MG/ML 1 ML VIAL IV SCH (17:47)
[2017-07-11 20:36] LABS: Glucose,Whole Blood 129 mg/dL (75-99)
[2017-07-11] MEDS: MONTELUKAST 10 MG TAB PO SCH (20:57)
[2017-07-11 23:13] VITALS: RESP 16
[2017-07-12] MEDS: methylPREDNISolone SOD SUCCI 40 MG/ML 1 ML VIAL IV SCH ×2 (00:53→08:17)
[2017-07-12 06:35] VITALS: BP 120/64; TEMP 98.7
[2017-07-12 07:20] LABS: Glucose,Whole Blood 108 mg/dL (75-99)
[2017-07-12] MEDS: INSULIN ASPART 100 UNIT/ML 1 ML 10 ML VIAL SQ SCH ×2 (07:32→13:40)
[2017-07-12] MEDS: BUDESONIDE 1 MG/2 ML NEBU INHALATION SCH (08:09)
[2017-07-12] MEDS: IPRATROPIUM-ALBUTEROL 3 ML NEB INHALATION SCH ×2 (08:10→11:20)
[2017-07-12] MEDS: FORMOTEROL FUMARATE 20 MCG/2 ML NEBU INHALATION SCH (08:10)
[2017-07-12 08:13] VITALS: PULSE 72
[2017-07-12] MEDS: AZITHROMYCIN 500 MG TAB PO SCH (08:17)
[2017-07-12] MEDS: diphenhydrAMINE 50 MG/ML 1 ML VIAL IVP PRN (08:17)
[2017-07-12] MEDS: ENOXAPARIN 40 MG/0.4 ML SYRINGE SQ SCH (08:17)
[2017-07-12] MEDS: cefTRIAXone IN SWFI 1,000 MG/10 ML SYRINGE IVP SCH (08:17)
[2017-07-12 11:29] LABS: Glucose,Whole Blood 96 mg/dL (75-99)
--- NOTE | 2017-07-12 12:25 | P.PN ---
Subjective Progress Note Date: 07/12/17 Principal diagnosis: Acute exacerbation of severe persistent chronic bronchial asthma. Consult dated 07/10/2017 26-year-old female well-known to our service. She has a history of severe chronic bronchial asthma. She is maintained on albuterol updrafts, albuterol inhaler, Dulera 200/5, 2 puffs twice a day and Singulair 10 mg at bedtime. She is also on her normal dose of prednisone about 10 mg a day. She typically sees my partner, Dr. Christina in the office. She was seen in the emergency room this morning by Dr. Barahona. She came with complaints of increasing shortness of breath chest tightness wheezing and cough coughing up a small amount of phlegm. Over the last week she bumped her prednisone dose up to 40 mg a day. She knows how to adjust her own dose. Anyway Dr. Barahona saw her down there and he decided to admit her for an asthma exacerbation. Chest x-ray shows some bronchitic changes and reactive airway disease changes but nothing acute in way of pneumonia or fluid. Typically she is in the hospital for a couple days getting IV corticosteroids breathing treatments and some oral antibiotics. On 07/11/2017 patient seen in follow-up on medical surgical floor. She states her breathing is improving, denies any acute distress. Lung sounds are diminished, with faint end expiratory wheezes on forced exhale maneuver. She is on 2 L per nasal cannula with O2 sat 97%. She is afebrile, hemodynamically stable. She hasn't a productive cough with production of white and at times green sputum. She has been ambulating to the bathroom, tolerating activity well. She is requesting her steroids to be tapered down to 40 mg every 8 hours , as she is concerned about acute withdrawal with abrupt switched to oral prednisone. Overall she states she is feeling better today. From pulmonary standpoint she could be considered for discharge home potentially today. The patient is seen again today 07/12/2017 in follow-up on the regular medical floor. She is currently sitting up in bed. She is awake and alert in no acute distress. She is nearly back to her baseline. She is maintaining good O2 saturations in the 90s on room air. She's been afebrile. Hemodynamically stable. Blood and urine cultures reveal no growth to date. She has been maintained on DuoNeb inhalations, Pulmicort inhalations, IV Solu-Medrol, Singulair, empiric antibiotics in the form of ceftriaxone and azithromycin. Objective - Vital Signs Vital signs: Vital Signs Temp 98.7 F 07/12/17 06:34 Pulse 72 07/12/17 08:40 Resp 16 07/12/17 08:00 BP 120/64 07/12/17 06:34 Pulse Ox 95 07/12/17 06:34 Intake & Output 07/11/17 07/12/17 07/12/17 18:59 06:59 18:59 Other: Voiding Method Toilet # Voids 2 2 - Exam GENERAL EXAM: Alert, oriented 3, active, comfortable in no apparent distress. HEAD: Normocephalic. EYES: Normal reaction of pupils, equal size. NOSE: Clear with pink turbinates. THROAT: No erythema or exudates. NECK: No masses, no JVD. CHEST: No chest wall deformity. LUNGS: Equal air entry with faint end expiratory wheeze. CVS: S1 and S2 normal with no audible murmur, regular rhythm. ABDOMEN: No hepatosplenomegaly, normal bowel sounds, no guarding or rigidity. SPINE: No scoliosis or deformity SKIN: No rashes CENTRAL NERVOUS SYSTEM: No focal deficits, tone is normal in all 4 extremities. EXTREMITIES: There is no peripheral edema. No clubbing, no cyanosis. Peripheral pulses are intact. - Labs CBC & Chem 7: 07/10/17 10:20 07/10/17 10:20 Labs: Abnormal Lab Results - Last 24 Hours (Table) 07/11/17 07/11/17 07/12/17 Range/Units 17:10 20:35 07:17 POC Glucose (mg/dL) 137 H 129 H 108 H (75-99) mg/dL Microbiology - Last 24 Hours (Table) 07/10/17 10:20 Urine Culture - Final Urine,Voided 07/10/17 10:20 Blood Culture - Preliminary Blood No Growth after 24 hours Assessment and Plan Assessment: Assessment: Acute exacerbation of severe persistent chronic bronchial asthma Multiple admissions to the hospital for same Purulent tracheobronchitis Chronic steroid dependence Previous history of pneumonia Plan: The patient was seen and evaluated by Dr. Grover. She is cleared for discharge from the pulmonary standpoint. She did complete a prednisone taper. Completed course of antibiotics. Continue with her home pulmonary medications. Follow up with Dr. Christina in our office in 1-2 weeks' time. She is however encouraged to call sooner if any recurrence of symptoms or other questions or concerns. I, the cosigning physician, performed a history & physical examination of the patient. Lungs sounds have faint end expiratory wheeze. Maintaining good O2 saturations in the 90s on room air. I discussed the assessment and plan of care with my nurse practitioner, Kalina Hutchinson. I attest to the above note as dictated by her.
--- NOTE | 2017-07-12 17:24 | DS ---
DISCHARGE SUMMARY DATE OF ADMISSION: 07/10/2017 DATE OF DISCHARGE: 07/12/2017 FINAL DIAGNOSIS: 1. Acute exacerbation of moderate obstructive asthma. 2. Obesity, body mass index of 36.4. 3. Seasonal allergies. 4. Acute tracheobronchitis causing sepsis, present on admission. HOSPITAL COURSE: This patient presented with asthma exacerbation, tracheobronchitis, sepsis like picture on presentation. Responded well to antibiotic, steroids and nebulized bronchodilators. By the time of discharge, feeling much improved. Very keen to go home. Seen by Dr. Diego and cleared. On exam, lungs improved air entry, minimal wheezing. Patient tolerating a diet, up and about. DISCHARGE MEDICATIONS: 1. Ventolin HFA 2 puffs q.4 p.r.n. 2. Nebulizer 2.5 q.3 p.r.n. 3. Tylenol 1000 mg q.6 p.r.n. 4. Dulera 100/5 one puff b.i.d. 5. Singulair 10 mg q.h.s. 6. Prednisone taper. 7. Zithromax 500 mg daily. When the taper finishes, patient is to maintain on 10 mg a day. Follow up with Dr. Lo in 1 week. Follow up with Dr. Diego in 1 week. MMODL / IJN: [id number] /
== END 2017-07-12 14:13 | disposition home or self-care (01) | DRG 872 ==
LOC: EC 09:37 → 4MS4W 11:54
PROVIDERS: ADMIT Hospitalist; ATTEND Hospitalist
DX: A41.9 Sepsis, unspecified organism (principal); J45.902 Unspecified asthma with status asthmaticus; E66.9 Obesity, unspecified; G43.909 Migraine, unspecified, not intractable, without status migrainosus; J20.9 Acute bronchitis, unspecified; Z68.36 Body mass index [BMI] 36.0-36.9, adult; Z79.51 Long term (current) use of inhaled steroids; Z79.52 Long term (current) use of systemic steroids; Z79.899 Other long term (current) drug therapy; Z86.32 Personal history of gestational diabetes; Z87.01 Personal history of pneumonia (recurrent); Z88.6 Allergy status to analgesic agent; Z88.1 Allergy status to other antibiotic agents; Z88.8 Allergy status to other drugs, medicaments and biological substances
CPT/HCPCS: 36415; 71046; 80053; 81001; 83036; 83605; 85025; 85610; 85730; 87040; 87086; 87502; 93005; 94640; 94760; 96374; 96375; 99291

== ENCOUNTER → 2017-11-27 | Outpatient (CLI) | payer SELFPAY ==
[2017-11-27 08:35] LABS: Basophils % (A) 0 %; Eosinophils # (A) 1.6 k/uL (0-0.7); Eosinophils % (A) 12 %; HCT 44.9 % (34.0-46.0); HGB 14.7 gm/dL (11.4-16.0); Lymphocytes # (A) 3.8 k/uL (1.0-4.8); Lymphocytes % (A) 30 %; MCH 28.5 pg (25.0-35.0); MCHC 32.8 g/dL (31.0-37.0); MCV 86.8 fL (80.0-100.0); Mean Platelet Volume 7.7; Monocytes % (A) 8 %; Neutrophils # (A) 6.2 k/uL (1.3-7.7); Neutrophils % (A) 49 %; Platelet Count 297 k/uL (150-450); RBC 5.17 m/uL (3.80-5.40); WBC 12.7 k/uL (3.8-10.6)
[2017-11-27 08:55] LABS: T4, Free (Free Thyroxine) 1.01 ng/dL (0.78-2.19)
[2017-11-27 09:01] LABS: Total Eosinophil Count 1552 #EOS/uL (150-300)
== END | disposition home or self-care (01) ==
LOC: LABWHC1 07:36
PROVIDERS: ATTEND Internal Medicine Critical Care Medicine
DX: R63.5 Abnormal weight gain (principal); J45.909 Unspecified asthma, uncomplicated
CPT/HCPCS: 36415; 82785; 84439; 84443; 85008; 85025

== ENCOUNTER → 2019-05-31 | Outpatient (CLI) | payer OTHER ==
--- NOTE | 2019-05-31 16:37 | CT ---
EXAMINATION TYPE: CT chest w con DATE OF EXAM: 05/31/2019 COMPARISON: 04/09/2013 HISTORY: Hypoxic respiratory failure CT DLP: 1250 mGycm, Automated exposure control for dose reduction was used. CONTRAST: Performed injected with 100 ml mL of Isovue 300. TECHNIQUE: Axial images were obtained at 5 mm thick sections. Reconstructed images are reviewed on [employer] computer in the coronal plane. FINDINGS: Portion of the thyroid visualized is normal. No suspicious lung nodules or focal infiltrates are present. No enlarged mediastinal or hilar adenopathy is evident. The ascending aorta diameter at the level o f the main pulmonary artery is 3.1 cm. The main pulmonary artery diameter at the bifurcation is 2.[address] sections are obtained through the upper abdomen. Abdomen is essentially unremarkable. IMPRESSIONS: 1. No acute pulmonary process.
--- NOTE | 2019-05-31 17:10 | CT ---
EXAMINATION TYPE: CT sinus wo con DATE OF EXAM: 05/31/2019 COMPARISON: 02/19/2016 HISTORY: Hypoxic respiratory failure CT DLP: 1250 mGycm CONTRAST: None The paranasal sinuses are examined in the axial plane at 2 mm thick sections. Reconstructed images i n the coronal plane were obtained. There is essentially complete opacification of all paranasal sinuses. There is some mucosal thickenin g within residual airspace within the left sphenoid sinus and the left maxillary sinus. Very minimal air may remain within the posterior right maxillary sinus. These findings are progressive from the comparison. The ostiomeatal units are obstructed. The septum is evaluated. There is septal deviation to the right. IMPRESSIONS: 1. Near complete opacification of the paranasal sinuses and nasal passages with obstruction of the o stiomeatal units. Correlate for nasal polyposis.
== END | disposition home or self-care (01) ==
LOC: RADCTMAIN 12:33
PROVIDERS: ATTEND Internal Medicine Critical Care Medicine
DX: J34.89 Other specified disorders of nose and nasal sinuses (principal); J96.91 Respiratory failure, unspecified with hypoxia
CPT/HCPCS: 85008; 71260; 36415; 70486; Q9967

== ENCOUNTER 2020-12-21 09:20 | Emergency (ER) | payer OTHER ==
[2020-12-21 09:29] VITALS: TEMP 97.9
[2020-12-21] MEDS ORDERED: methylPREDNISolone SOD SUCCI 125 MG/2 ML VIAL IV STA (09:39)
[2020-12-21] MEDS ORDERED: IPRATROPIUM-ALBUTEROL 3 ML NEB INHALATION STA (09:39)
[2020-12-21 10:01] LABS: Appearance,Urine Clear (Clear); Bilirubin,Urine Negative (Negative); Blood,Urine Negative (Negative); Color,Urine Colorless; Glucose,Urine (UA) Negative (Negative); Ketones,Urine Negative (Negative); Leukocyte Esterase,Urine Negative (Negative); Nitrite,Urine Negative (Negative); PH, Urine 7.5 (5.0-8.0); Protein,Urine Negative (Negative); Specific Gravity,Urine 1.002 (1.001-1.035); Urobilinogen,Urine <2.0 mg/dL (<2.0)
[2020-12-21 10:02] LABS: Basophils # (A) 0.1 k/uL (0-0.2); Basophils % (A) 1 %; Eosinophils # (A) 1.6 k/uL (0-0.7); Eosinophils % (A) 11 %; HCT 47.9 % (34.0-46.0); HGB 16.1 gm/dL (11.4-16.0); Lymphocytes # (A) 2.1 k/uL (1.0-4.8); Lymphocytes % (A) 15 %; MCHC 33.5 g/dL (31.0-37.0); MCV 92.5 fL (80.0-100.0); Mean Platelet Volume 7.7; Monocytes # (A) 0.5 k/uL (0-1.0); Monocytes % (A) 4 %; Neutrophils # (A) 10.1 k/uL (1.3-7.7); Neutrophils % (A) 70 %; Platelet Count 330 k/uL (150-450); RBC 5.18 m/uL (3.80-5.40); RDW 14.1 % (11.5-15.5); WBC 14.4 k/uL (3.8-10.6)
[2020-12-21 10:11] LABS: ALT 29 U/L (4-34); AST 30 U/L (14-36); African American GFR (CKD) >90 (>60 ml/min/1.73 sqM); Albumin 4.6 g/dL (3.5-5.0); Alkaline Phosphatase 52 U/L (38-126); Anion Gap 9 mmol/L; Blood Urea Nitrogen 15 mg/dL (7-17); Calcium 10.2 mg/dL (8.4-10.2); Carbon Dioxide 26 mmol/L (22-30); Chloride 103 mmol/L (98-107); Glucose 93 mg/dL (74-99); Non-African American GFR(CKD) >90 (>60 ml/min/1.73 sqM); Potassium 4.3 mmol/L (3.5-5.1); Sodium 138 mmol/L (137-145); Total Bilirubin 0.7 mg/dL (0.2-1.3); Total Protein 7.6 g/dL (6.3-8.2)
--- NOTE | 2020-12-21 10:34 | XR ---
EXAMINATION TYPE: XR chest 2V DATE OF EXAM: 12/21/2020 COMPARISON: Chest x-ray July 10, 2017. CT chest May 31, 2019 HISTORY: Difficulty breathing since last night. TECHNIQUE: Frontal and lateral views of the chest are obtained. FINDINGS: Overlying EKG leads are present on current study There is no suspicious new focal air space opacity, pleural effusion, or pneumothorax seen. The cardiac silhouette size remains within normal limits. The osseous structures are intact. IMPRESSION: No new acute infiltrate. No significant change from prior studies.
--- NOTE | 2020-12-21 10:44 | ED ---
SOB HPI - General Chief Complaint: Shortness of Breath Stated Complaint: Asthma Time Seen by Provider: 12/21/20 09:33 Source: patient, RN notes reviewed Mode of arrival: ambulatory Limitations: no limitations - History of Present Illness Initial Comments: Patient is a 30-year-old female that presents to the emergency department complaining of difficulty with breathing. She notes that she does have a history of chronic sinus infection asthma. She notes that Relief she got was when she was on dupixent. She noted that due to insurance issues to discontinue the medication she is currently a peeling up. She notes that she's been the same situation several times and that IV steroids and a breathing treatment usually help improve symptoms. She notes that she does follow-up with Dr. Christina and is having difficulties getting her prior authorization for medication filled. She notes that she is not having other symptoms at this time. She denied any chest pain headache nausea vomiting diarrhea constipation fever fatigue chills. - Related Data Home Medications Medication Instructions Recorded Confirmed Acetaminophen Tab [Tylenol] 1,000 mg PO Q6HR PRN 03/24/17 07/10/17 Mometasone/Formoterol [Dulera 100 1 puff INHALATION RT-BID 03/24/17 07/10/17 Mcg-5 Mcg Inhaler] predniSONE 10 mg PO QAM 05/06/17 07/10/17 Previous Rx's Medication Instructions Recorded Albuterol Inhaler (Mhu) [Ventolin 2 puff INHALATION RT-Q4H PRN #1 02/26/17 Hfa Inhaler (Mhu)] puff Albuterol Nebulized [Ventolin 2.5 mg INHALATION RT-Q3H PRN #100 02/26/17 Nebulized] nebu Montelukast [Singulair] 10 mg PO HS #30 tab 03/27/17 Azithromycin [Zithromax] 500 mg PO DAILY #3 tab 07/12/17 predniSONE 10 mg PO DAILY #30 tab 07/12/17 Allergies Allergy/AdvReac Type Severity Reaction Status Date / Time amoxicillin [Amoxicillin] Allergy Severe Rash/Hives Verified 12/21/20 09:24 ciprofloxacin [From Cipro] Allergy Severe Rash/Hives Verified 12/21/20 09:24 ciprofloxacin HCl Allergy Severe Rash/Hives Verified 12/21/20 09:24 [From Cipro] fluticasone propionate Allergy Severe Rash/Hives Verified 12/21/20 09:24 [From Advair Diskus] levofloxacin Allergy Severe Rash/Hives Verified 12/21/20 09:24 Proton Pump Inhibitors Allergy Severe Rash/Hives Verified 12/21/20 09:24 salmeterol xinafoate Allergy Severe Rash/Hives Verified 12/21/20 09:24 [From Advair Diskus] zolmitriptan [From Zomig] Allergy Severe Anaphylaxis Verified 12/21/20 09:24 sulfamethoxazole Allergy Intermediate Rash/Hives Verified 12/21/20 09:24 [From Bactrim] trimethoprim [From Bactrim] Allergy Intermediate Rash/Hives Verified 12/21/20 09:24 ketorolac tromethamine Allergy Anaphylaxis Verified 12/21/20 09:24 [From Toradol] NSAIDS (Non-Steroidal Allergy Anaphylaxis Verified 12/21/20 09:24 Anti-Inflamma PROPELLE Allergy Unknown Uncoded 12/21/20 09:24 Review of Systems ROS Statement: Those systems with pertinent positive or pertinent negative responses have been documented in the HPI. ROS Other: All systems not noted in ROS Statement are negative. Past Medical History Past Medical History: Asthma, Pneumonia Additional Past Medical History / Comment(s): Asthma and has been on ventilator in the past, severe persistent bronchitis, pneumonias, pneumonia with sepsis, seasonal allergies, migraines, sinusitis, nasal polyps, aspirin/nsaid allergies, palpitaions, -induced hypertension, gestational diabetes (secondary to steroids during ). History of Any Multi-Drug Resistant Organisms: None Reported Past Surgical History: Section, Tubal Ligation Additional Past Surgical History / Comment(s): Bronchosopies, 4 nasal polypectomies, 2 C-Sections, PICC line insertion/removed Past Anesthesia/Blood Transfusion Reactions: No Reported Reaction Past Psychological History: No Psychological Hx Reported Smoking Status: Never smoker Past Alcohol Use History: Rare Past Drug Use History: None Reported - Past Family History Father Family Medical History: Unable to Obtain Additional Family Medical History / Comment(s): Pt was adopted mother Family Medical History: Unable to Obtain Additional Family Medical History / Comment(s): pt is adopted and does not know family history General Exam Limitations: no limitations General appearance: alert, in no apparent distress Head exam: Present: atraumatic, normocephalic, normal inspection Eye exam: Present: normal appearance, PERRL, EOMI. Absent: scleral icterus, conjunctival injection, periorbital swelling Neck exam: Present: normal inspection Respiratory exam: Present: decreased breath sounds (Lower lobes right side). Absent: respiratory distress, wheezes, rales, rhonchi, stridor Cardiovascular Exam: Present: regular rate, normal rhythm, normal heart sounds. Absent: systolic murmur, diastolic murmur, rubs, gallop, clicks GI/Abdominal exam: Present: soft, normal bowel sounds. Absent: distended, tenderness, guarding, rebound, rigid Extremities exam: Present: normal inspection, full ROM, normal capillary refill. Absent: tenderness, pedal edema, joint swelling, calf tenderness Neurological exam: Present: alert, oriented X3 Psychiatric exam: Present: normal affect, normal mood Skin exam: Present: warm, dry, intact, normal color. Absent: rash Course Vital Signs 12/21/20 12/21/20 12/21/20 09:26 09:47 09:59 Temperature 97.9 F Pulse Rate 78 77 74 Respiratory 20 20 20 Rate Blood Pressure 124/82 O2 Sat by Pulse 99 Oximetry Medical Decision Making - Medical Decision Making 30-year-old female complaining of increased difficult with breathing. She notes that this is not the first time this has happened and IV steroids and breathing treatment usually help. Labs, chest x-ray, EKG, DuoNeb ordered. Labs: Mild leukocytosis at 14.4, patient usually has elevated white count. Rest of labs unremarkable. X-ray: No new acute changes. Patient states that she is feeling much better and wants to go home at this time. She will follow up with Dr. Christina as planned. Case discussed with Dr. Avendano, patient can discharge home. - Lab Data Result diagrams: 12/21/20 09:51 12/21/20 09:51 Lab Results 12/21/20 12/21/20 12/21/20 Range/Units 09:51 09:51 09:51 WBC 14.4 H (3.8-10.6) k/uL RBC 5.18 (3.80-5.40) m/uL Hgb 16.1 H (11.4-16.0) gm/dL Hct 47.9 H (34.0-46.0) % MCV 92.5 (80.0-100.0) fL MCH 31.0 (25.0-35.0) pg MCHC 33.5 (31.0-37.0) g/dL RDW 14.1 (11.5-15.5) % Plt Count 330 (150-450) k/uL MPV 7.7 Neutrophils % 70 % Lymphocytes % 15 % Monocytes % 4 % Eosinophils % 11 % Basophils % 1 % Neutrophils # 10.1 H (1.3-7.7) k/uL Lymphocytes # 2.1 (1.0-4.8) k/uL Monocytes # 0.5 (0-1.0) k/uL Eosinophils # 1.6 H (0-0.7) k/uL Basophils # 0.1 (0-0.2) k/uL Sodium (137-145) mmol/L Potassium (3.5-5.1) mmol/L Chloride (98-107) mmol/L Carbon Dioxide (22-30) mmol/L Anion Gap mmol/L BUN (7-17) mg/dL Creatinine (0.52-1.04) mg/dL Est GFR (CKD-EPI)AfAm (>60 ml/min/1.73 sqM) Est GFR (CKD-EPI)NonAf (>60 ml/min/1.73 sqM) Glucose (74-99) mg/dL Plasma Lactic Acid Mark (0.7-2.0) mmol/L Calcium (8.4-10.2) mg/dL Total Bilirubin (0.2-1.3) mg/dL AST (14-36) U/L ALT (4-34) U/L Alkaline Phosphatase (38-126) U/L Troponin I (0.000-0.034) ng/mL Total Protein (6.3-8.2) g/dL Albumin (3.5-5.0) g/dL Urine Color Colorless Urine Appearance Clear (Clear) Urine pH 7.5 (5.0-8.0) Ur Specific Logan 1.002 (1.001-1.035) Urine Protein Negative (Negative) Urine Glucose (UA) Negative (Negative) Urine Ketones Negative (Negative) Urine Blood Negative (Negative) Urine Nitrite Negative (Negative) Urine Bilirubin Negative (Negative) Urine Urobilinogen <2.0 (<2.0) mg/dL Ur Leukocyte Esterase Negative (Negative) Urine HCG, Qual Not Detected (Not Detectd) 12/21/20 12/21/20 12/21/20 Range/Units 09:51 09:51 09:51 WBC (3.8-10.6) k/uL RBC (3.80-5.40) m/uL Hgb (11.4-16.0) gm/dL Hct (34.0-46.0) % MCV (80.0-100.0) fL MCH (25.0-35.0) pg MCHC (31.0-37.0) g/dL RDW (11.5-15.5) % Plt Count (150-450) k/uL MPV Neutrophils % % Lymphocytes % % Monocytes % % Eosinophils % % Basophils % % Neutrophils # (1.3-7.7) k/uL Lymphocytes # (1.0-4.8) k/uL Monocytes # (0-1.0) k/uL Eosinophils # (0-0.7) k/uL Basophils # (0-0.2) k/uL Sodium 138 (137-145) mmol/L Potassium 4.3 (3.5-5.1) mmol/L Chloride 103 (98-107) mmol/L Carbon Dioxide 26 (22-30) mmol/L Anion Gap 9 mmol/L BUN 15 (7-17) mg/dL Creatinine 0.73 (0.52-1.04) mg/dL Est GFR (CKD-EPI)AfAm >90 (>60 ml/min/1.73 sqM) Est GFR (CKD-EPI)NonAf >90 (>60 ml/min/1.73 sqM) Glucose 93 (74-99) mg/dL Plasma Lactic Acid Mark 2.2 H* (0.7-2.0) mmol/L Calcium 10.2 (8.4-10.2) mg/dL Total Bilirubin 0.7 (0.2-1.3) mg/dL AST 30 (14-36) U/L ALT 29 (4-34) U/L Alkaline Phosphatase 52 (38-126) U/L Troponin I <0.012 (0.000-0.034) ng/mL Total Protein 7.6 (6.3-8.2) g/dL Albumin 4.6 (3.5-5.0) g/dL Urine Color Urine Appearance (Clear) Urine pH (5.0-8.0) Ur Specific Logan (1.001-1.035) Urine Protein (Negative) Urine Glucose (UA) (Negative) Urine Ketones (Negative) Urine Blood (Negative) Urine Nitrite (Negative) Urine Bilirubin (Negative) Urine Urobilinogen (<2.0) mg/dL Ur Leukocyte Esterase (Negative) Urine HCG, Qual (Not Detectd) - EKG Data -: EKG Interpreted by Me EKG shows normal: sinus rhythm Rate: normal EKG Comments: Ventricular rate 69 bpm, ND interval 114 ms, QRS duration 78 ms, QTC 420 ms, PRT axes 43/48/51. Normal sinus rhythm with sinus arrhythmia, normal ECG. - Radiology Data Radiology results: report reviewed, image reviewed Chest x-ray: No new or acute infiltrate. No significant change from prior studies. Disposition Clinical Impression: Shortness of breath, Asthma, Leukocytosis Disposition: HOME SELF-CARE Instructions (If sedation given, give patient instructions): Asthma (ED) Additional Instructions: Please return to the Emergency Department if symptoms worsen or any other concerns. Follow-up with primary care and urologist as planned. Continue at home medications as prescribed. Is patient prescribed a controlled substance at d/c from ED?: No Referrals: Lucien Lo MD [Primary Care Provider] - 1-2 days Time of Disposition: 11:53
[2020-12-21 12:15] VITALS: BP 113/67; PULSE 88; RESP 18
== END 2020-12-21 12:14 | disposition home or self-care (01) ==
LOC: EC 09:20
DX: J45.909 Unspecified asthma, uncomplicated (principal); D72.829 Elevated white blood cell count, unspecified; Z79.51 Long term (current) use of inhaled steroids; Z88.0 Allergy status to penicillin; Z88.1 Allergy status to other antibiotic agents; Z88.8 Allergy status to other drugs, medicaments and biological substances; Z88.2 Allergy status to sulfonamides; Z88.6 Allergy status to analgesic agent
CPT/HCPCS: 36415; 94640; 93005; 80053; 83605; 84484; 85025; 81003; 81025; 71046; 99285; 96374; J2930

== ENCOUNTER 2022-05-13 11:54 | Emergency (ER) | payer OTHER ==
[2022-05-13 12:03] VITALS: TEMP 98.7
[2022-05-13] MEDS ORDERED: SODIUM CHLORIDE 0.9% 1,000 ML IV STA (13:22)
--- NOTE | 2022-05-13 13:27 | ED ---
General Adult HPI - General Chief complaint: Chest Pain Stated complaint: chest pain Time Seen by Provider: 05/13/22 13:02 Source: patient, RN notes reviewed, old records reviewed Mode of arrival: ambulatory Limitations: no limitations - History of Present Illness Initial comments: This is a pleasant well appearing 31-year-old female that presents with chest pain that radiates to the left side of her neck that started at 10:00 today. She states that she does have a history of asthma was ;last intubated 3 years ago. Denies any fevers. No known sick exposures. Did go to urgent care who recommended she come to the emergency room for evaluation of her chest pain. She describes the pain as a "tired" sensation like her lungs get when she has an asthma attack. Patient is a nonsmoker. Does not know her family history as she is adopted. She did take her prednisone, albuterol and Advair prior to arrival. -: hour(s) (3) Location: chest Radiation: neck (left side) Quality: other ("tired") Consistency: constant Improves with: none Worsens with: none Associated Symptoms: denies other symptoms Treatments Prior to Arrival: other (urgent care) - Related Data Home Medications Medication Instructions Recorded Confirmed Albuterol Nebulized [Ventolin 2.5 mg INHALATION RT-DAILY 05/13/22 05/13/22 Nebulized] Fluticasone Propion/Salmeterol 1 puff INHALATION RT-BID 05/13/22 05/13/22 [Advair 500-50 Diskus] predniSONE 5 mg PO DAILY 05/13/22 05/13/22 Previous Rx's Medication Instructions Recorded Albuterol Inhaler [Ventolin Hfa 2 puff INHALATION RT-Q4H PRN #1 02/26/17 Inhaler] puff Montelukast [Singulair] 10 mg PO HS #30 tab 03/27/17 Allergies Allergy/AdvReac Type Severity Reaction Status Date / Time amoxicillin [Amoxicillin] Allergy Severe Rash/Hives Verified 05/13/22 14:57 ciprofloxacin [From Cipro] Allergy Severe Rash/Hives Verified 05/13/22 14:57 ciprofloxacin HCl Allergy Severe Rash/Hives Verified 05/13/22 14:57 [From Cipro] fluticasone propionate Allergy Severe Rash/Hives Verified 05/13/22 14:57 [From Advair Diskus] levofloxacin Allergy Severe Rash/Hives Verified 05/13/22 14:57 Proton Pump Inhibitors Allergy Severe Rash/Hives Verified 05/13/22 14:57 salmeterol xinafoate Allergy Severe Rash/Hives Verified 05/13/22 14:57 [From Advair Diskus] zolmitriptan [From Zomig] Allergy Severe Anaphylaxis Verified 05/13/22 14:57 sulfamethoxazole Allergy Intermediate Rash/Hives Verified 05/13/22 14:57 [From Bactrim] trimethoprim [From Bactrim] Allergy Intermediate Rash/Hives Verified 05/13/22 14:57 ketorolac tromethamine Allergy Anaphylaxis Verified 05/13/22 14:57 [From Toradol] NSAIDS (Non-Steroidal Allergy Anaphylaxis Verified 05/13/22 14:57 Anti-Inflamma PROPELLE Allergy Unknown Uncoded 05/13/22 14:57 Review of Systems ROS Statement: Those systems with pertinent positive or pertinent negative responses have been documented in the HPI. ROS Other: All systems not noted in ROS Statement are negative. Past Medical History Past Medical History: Asthma, Pneumonia Additional Past Medical History / Comment(s): Asthma and has been on ventilator in the past, severe persistent bronchitis, pneumonias, pneumonia with sepsis, seasonal allergies, migraines, sinusitis, nasal polyps, aspirin/nsaid allergies, palpitaions, -induced hypertension, gestational diabetes (secondary to steroids during ). History of Any Multi-Drug Resistant Organisms: None Reported Past Surgical History: Section, Tubal Ligation Additional Past Surgical History / Comment(s): Bronchosopies, 4 nasal polypectomies, 2 C-Sections, PICC line insertion/removed Past Anesthesia/Blood Transfusion Reactions: No Reported Reaction Past Psychological History: No Psychological Hx Reported Smoking Status: Never smoker Past Alcohol Use History: Rare Past Drug Use History: None Reported - Past Family History Father Family Medical History: Unable to Obtain Additional Family Medical History / Comment(s): Pt was adopted mother Family Medical History: Unable to Obtain Additional Family Medical History / Comment(s): pt is adopted and does not know family history General Exam Limitations: no limitations General appearance: alert, in no apparent distress Head exam: Present: atraumatic, normocephalic Eye exam: Absent: scleral icterus, conjunctival injection, periorbital swelling ENT exam: Present: mucous membranes moist Neck exam: Present: full ROM. Absent: tenderness, meningismus, lymphadenopathy Respiratory exam: Present: normal lung sounds bilaterally. Absent: respiratory distress, wheezes, rales, rhonchi, stridor, chest wall tenderness, accessory muscle use Cardiovascular Exam: Present: regular rate, normal rhythm Extremities exam: Present: normal capillary refill. Absent: pedal edema Back exam: Absent: tenderness Neurological exam: Present: alert, oriented X3 Psychiatric exam: Present: normal affect, normal mood Skin exam: Present: warm, dry, normal color. Absent: cyanosis, diaphoretic, petechiae, pallor Course Vital Signs 05/13/22 05/13/22 12:00 15:37 Temperature 98.7 F Pulse Rate 72 59 L Respiratory 20 16 Rate Blood Pressure 155/95 120/95 O2 Sat by Pulse 93 L 99 Oximetry EKG Findings - EKG Results: EKG: sinus rhythm (Ventricular rate of 75, VA interval 0.122, QRS 0.88, QTc 0.419 normal axis) Medical Decision Making - Medical Decision Making Chest x-ray interpreted by me shows no evidence of consolidation, trachea is midline. Radiologist's interpretation no acute cardiopulmonary process. Labs show no evidence of leukocytosis. Hemoglobin and hematocrit are stable. D-dimer is negative at 0.22, electrolytes are unremarkable. EKG shows sinus rhythm no significant change compared to old D 12/21/2020. Troponin is negative at 0.012. Influenza A B, RSV and coronavirus swabs are negative. Lungs sounds are clear to auscultation. She does have severe asthma and sees Dr. Christina regularly. Patient states that she is adopted and does not know family history. HEART score low. Patient states that she was on dupixent for asthma control however her insurance company did not authorize it to be given and has not had it in 6 weeks. This is likely pleuritic chest pain. She was directed to follow-up with her primary care doctor this week and return to the emergency room with any new or concerning symptoms. She is agreeable to this plan of care. Case discussed with Dr. Fisher Was pt. sent in by a medical professional or institution? @ -yes urgent care Did you speak to anyone other than the patient for history? @ -no Did you review nursing and triage notes? @ -yes i agree Were old charts reviewed? @ -yes old ekg Differential Diagnosis? @ -Differential Chest Pain: Stable Angina, Unstable Angina, STEMI, NSTEMI, Pneumothorax, Musculoskeletal, Esophageal Spasm GERD, this is not meant to be an all-inclusive list. EKG interpreted by me (3pts min.)? @ -Yes as above X-rays interpreted by me (1pt min.)? @ -Yes as above CT interpreted by me (1pt min.)? @ -[none] U/S interpreted by me (1pt. min.)? @ -[none] What testing was considered but not performed? (CT, X-rays, U/S, labs)? Why? @ None What meds were considered but not given? Why? @ -None Did you discuss the management of the patient with other professionals? @ -no Did you reconcile home meds? @ -no Was smoking cessation discussed for >3mins.? @ -[none] Was critical care preformed (if so, how long)? @ -no Were there social determinants of health that impacted care today? How? (Homelessness, low income, unemployed, alcoholism, drug addiction, transportation, low edu. Level, literacy, decrease access to med. care, alf, rehab)? @ -none Was there de-escalation of care discussed even if they declined? (Discuss DNR or withdrawal of care, Hospice)? @ -no What co-morbidities impacted this encounter? (DM, HTN, Smoking, COPD, CAD, Cancer, CVA, Hep., AIDS, mental health diagnosis, sleep apnea, morbid obesity)? @ -asthma Was patient admitted / discharged? @ -discharged Undiagnosed new problem with uncertain prognosis? @ -[none] Drug Therapy requiring intensive monitoring for toxicity (Heparin, Nitro, Insulin, Cardizem)? @ -no Were any procedures done? @ -no Diagnosis/symptom? @ -Pleuritic chest pain Acute, or Chronic, or Acute on Chronic? @ -acute Uncomplicated (without systemic symptoms) or Complicated (systemic symptoms)? @ -Complicated Side effects of treatment? @ -[none] Exacerbation, Progression, or Severe Exacerbation] @ -[no] Poses a threat to life or bodily function? @ -[no] - Lab Data Result diagrams: 05/13/22 13:52 05/13/22 13:52 Lab Results 05/13/22 05/13/22 05/13/22 Range/Units 13:52 13:52 13:52 WBC 9.5 (3.8-10.6) k/uL RBC 5.05 (3.80-5.40) m/uL Hgb 15.1 (11.4-16.0) gm/dL Hct 44.8 (34.0-46.0) % MCV 88.7 (80.0-100.0) fL MCH 29.8 (25.0-35.0) pg MCHC 33.6 (31.0-37.0) g/dL RDW 13.5 (11.5-15.5) % Plt Count 286 (150-450) k/uL MPV 8.2 Neutrophils % 45 % Lymphocytes % 27 % Monocytes % 7 % Eosinophils % 20 % Basophils % 0 % Neutrophils # 4.2 (1.3-7.7) k/uL Lymphocytes # 2.5 (1.0-4.8) k/uL Monocytes # 0.6 (0-1.0) k/uL Eosinophils # 1.9 H (0-0.7) k/uL Basophils # 0.0 (0-0.2) k/uL PT 10.1 (9.0-12.0) sec INR 0.9 (<1.2) APTT 23.3 (22.0-30.0) sec D-Dimer 0.22 (<0.60) mg/L FEU Sodium 137 (137-145) mmol/L Potassium 4.1 (3.5-5.1) mmol/L Chloride 104 (98-107) mmol/L Carbon Dioxide 28 (22-30) mmol/L Anion Gap 5 mmol/L BUN 11 (7-17) mg/dL Creatinine 0.74 (0.52-1.04) mg/dL Est GFR (CKD-EPI)AfAm >90 (>60 ml/min/1.73 sqM) Est GFR (CKD-EPI)NonAf >90 (>60 ml/min/1.73 sqM) Glucose 89 (74-99) mg/dL Calcium 9.1 (8.4-10.2) mg/dL Magnesium 1.7 (1.6-2.3) mg/dL Total Bilirubin 0.7 (0.2-1.3) mg/dL AST 31 (14-36) U/L ALT 39 H (4-34) U/L Alkaline Phosphatase 55 (38-126) U/L Troponin I (0.000-0.034) ng/mL Total Protein 7.9 (6.3-8.2) g/dL Albumin 4.4 (3.5-5.0) g/dL Influenza Type A (PCR) (Not Detectd) Influenza Type B (PCR) (Not Detectd) RSV (PCR) (Not Detectd) SARS-CoV-2 (PCR) (Not Detectd) 05/13/22 05/13/22 Range/Units 13:52 13:52 WBC (3.8-10.6) k/uL RBC (3.80-5.40) m/uL Hgb (11.4-16.0) gm/dL Hct (34.0-46.0) % MCV (80.0-100.0) fL MCH (25.0-35.0) pg MCHC (31.0-37.0) g/dL RDW (11.5-15.5) % Plt Count (150-450) k/uL MPV Neutrophils % % Lymphocytes % % Monocytes % % Eosinophils % % Basophils % % Neutrophils # (1.3-7.7) k/uL Lymphocytes # (1.0-4.8) k/uL Monocytes # (0-1.0) k/uL Eosinophils # (0-0.7) k/uL Basophils # (0-0.2) k/uL PT (9.0-12.0) sec INR (<1.2) APTT (22.0-30.0) sec D-Dimer (<0.60) mg/L FEU Sodium (137-145) mmol/L Potassium (3.5-5.1) mmol/L Chloride (98-107) mmol/L Carbon Dioxide (22-30) mmol/L Anion Gap mmol/L BUN (7-17) mg/dL Creatinine (0.52-1.04) mg/dL Est GFR (CKD-EPI)AfAm (>60 ml/min/1.73 sqM) Est GFR (CKD-EPI)NonAf (>60 ml/min/1.73 sqM) Glucose (74-99) mg/dL Calcium (8.4-10.2) mg/dL Magnesium (1.6-2.3) mg/dL Total Bilirubin (0.2-1.3) mg/dL AST (14-36) U/L ALT (4-34) U/L Alkaline Phosphatase (38-126) U/L Troponin I <0.012 (0.000-0.034) ng/mL Total Protein (6.3-8.2) g/dL Albumin (3.5-5.0) g/dL Influenza Type A (PCR) Not Detected (Not Detectd) Influenza Type B (PCR) Not Detected (Not Detectd) RSV (PCR) Not Detected (Not Detectd) SARS-CoV-2 (PCR) Not Detected (Not Detectd) Disposition Clinical Impression: Pleuritic chest pain Disposition: HOME SELF-CARE Condition: Good Instructions (If sedation given, give patient instructions): Chest Pain (ED) Additional Instructions: Continue previously prescribed asthma medications and continue working with your insurance company in order to get your Dupixent. Follow-up with Dr. Carri slater ext week. Follow up with your primary care doctor this week. Return to the emergency room with any new or concerning symptoms. Is patient prescribed a controlled substance at d/c from ED?: No Referrals: None,Stated [Primary Care Provider] - 1-2 days Time of Disposition: 15:37
--- NOTE | 2022-05-13 14:12 | XR ---
EXAMINATION TYPE: XR chest 2V DATE OF EXAM: 05/13/2022 COMPARISON: 12/21/2020, CT chest 05/31/2019 HISTORY: Chest pain, started today TECHNIQUE: Frontal and lateral views of the chest are obtained. FINDINGS: There is no focal air space opacity, pleural effusion, or pneumothorax seen. The cardiac silhouette size is within normal limits. The osseous structures are intact. IMPRESSION: No acute cardiopulmonary process.
[2022-05-13 14:17] LABS: Basophils % (A) 0 %; Eosinophils # (A) 1.9 k/uL (0-0.7); Eosinophils % (A) 20 %; HCT 44.8 % (34.0-46.0); HGB 15.1 gm/dL (11.4-16.0); Lymphocytes # (A) 2.5 k/uL (1.0-4.8); Lymphocytes % (A) 27 %; MCH 29.8 pg (25.0-35.0); MCHC 33.6 g/dL (31.0-37.0); MCV 88.7 fL (80.0-100.0); Mean Platelet Volume 8.2; Monocytes # (A) 0.6 k/uL (0-1.0); Monocytes % (A) 7 %; Neutrophils # (A) 4.2 k/uL (1.3-7.7); Neutrophils % (A) 45 %; Platelet Count 286 k/uL (150-450); RBC 5.05 m/uL (3.80-5.40); RDW 13.5 % (11.5-15.5); WBC 9.5 k/uL (3.8-10.6)
[2022-05-13 14:29] LABS: INR 0.9 (<1.2); Partial Thromboplastin Time 23.3 sec (22.0-30.0); Prothrombin Time 10.1 sec (9.0-12.0)
[2022-05-13 14:34] LABS: Potassium 4.1 mmol/L (3.5-5.1)
[2022-05-13 14:35] LABS: ALT 39 U/L (4-34); AST 31 U/L (14-36); African American GFR (CKD) >90 (>60 ml/min/1.73 sqM); Albumin 4.4 g/dL (3.5-5.0); Alkaline Phosphatase 55 U/L (38-126); Anion Gap 5 mmol/L; Blood Urea Nitrogen 11 mg/dL (7-17); Calcium 9.1 mg/dL (8.4-10.2); Carbon Dioxide 28 mmol/L (22-30); Chloride 104 mmol/L (98-107); Glucose 89 mg/dL (74-99); Magnesium 1.7 mg/dL (1.6-2.3); Non-African American GFR(CKD) >90 (>60 ml/min/1.73 sqM); Sodium 137 mmol/L (137-145); Total Bilirubin 0.7 mg/dL (0.2-1.3); Total Protein 7.9 g/dL (6.3-8.2)
[2022-05-13 15:38] VITALS: BP 120/95; PULSE 59; RESP 16
== END 2022-05-13 15:49 | disposition home or self-care (01) ==
LOC: EC 11:54
DX: R07.81 Pleurodynia (principal); J45.909 Unspecified asthma, uncomplicated; Z88.0 Allergy status to penicillin; Z88.2 Allergy status to sulfonamides; Z88.1 Allergy status to other antibiotic agents; Z88.6 Allergy status to analgesic agent; Z91.048 Other nonmedicinal substance allergy status; Z88.8 Allergy status to other drugs, medicaments and biological substances; Z79.899 Other long term (current) drug therapy; Z20.822 Contact with and (suspected) exposure to COVID-19
CPT/HCPCS: 36415; 71046; 80053; 83735; 84484; 85025; 85379; 85610; 85730; 87636; 93005; 96360; 99284

== ENCOUNTER 2023-11-12 05:19 | Emergency (ER) | payer OTHER ==
--- NOTE | 2023-11-12 05:29 | ED ---
SOB HPI - General Chief Complaint: Shortness of Breath Stated Complaint: SOB Time Seen by Provider: 11/12/23 05:28 Source: patient, RN notes reviewed, old records reviewed Mode of arrival: wheelchair Limitations: no limitations - History of Present Illness Initial Comments: This is a 33-year-old female with severe shortness of breath and asthma exacerba tion on chronic steroids with significant chronic lung disease MD Complaint: shortness of breath, cough, anxiety -: days(s) Radiation: other Severity: severe Consistency: constant Improves With: oxygen Known History Of: COPD, asthma Context: recent URI, recent illness Associated Symptoms: denies other symptoms - Related Data Home Medications Medication Instructions Recorded Confirmed Albuterol Nebulized [Ventolin 2.5 mg INHALATION RT-DAILY 05/13/22 05/27/22 Nebulized] Fluticasone Propion/Salmeterol 1 puff INHALATION RT-BID 05/13/22 05/27/22 [Advair 500-50 Diskus] predniSONE 5 mg PO DAILY 05/13/22 05/27/22 Previous Rx's Medication Instructions Recorded Albuterol Inhaler [Ventolin Hfa 2 puff INHALATION RT-Q4H PRN #1 02/26/17 Inhaler] puff Montelukast [Singulair] 10 mg PO HS #30 tab 03/27/17 Allergies Allergy/AdvReac Type Severity Reaction Status Date / Time amoxicillin [Amoxicillin] Allergy Severe Rash/Hives Verified 11/12/23 05:29 ciprofloxacin [From Cipro] Allergy Severe Rash/Hives Verified 11/12/23 05:29 ciprofloxacin HCl Allergy Severe Rash/Hives Verified 11/12/23 05:29 [From Cipro] fluticasone propionate Allergy Severe Rash/Hives Verified 11/12/23 05:29 [From Advair Diskus] levofloxacin Allergy Severe Rash/Hives Verified 11/12/23 05:29 Proton Pump Inhibitors Allergy Severe Rash/Hives Verified 11/12/23 05:29 salmeterol xinafoate Allergy Severe Rash/Hives Verified 11/12/23 05:29 [From Advair Diskus] zolmitriptan [From Zomig] Allergy Severe Anaphylaxis Verified 11/12/23 05:29 sulfamethoxazole Allergy Intermediate Rash/Hives Verified 11/12/23 05:29 [From Bactrim] trimethoprim [From Bactrim] Allergy Intermediate Rash/Hives Verified 11/12/23 05:29 ketorolac tromethamine Allergy Anaphylaxis Verified 11/12/23 05:29 [From Toradol] NSAIDS (Non-Steroidal Allergy Anaphylaxis Verified 11/12/23 05:29 Anti-Inflamma PROPELLE Allergy Unknown Uncoded 11/12/23 05:29 Review of Systems ROS Statement: Those systems with pertinent positive or pertinent negative responses have been documented in the HPI. ROS Other: All systems not noted in ROS Statement are negative. Past Medical History Past Medical History: Asthma, Pneumonia Additional Past Medical History / Comment(s): Asthma and has been on ventilator in the past, severe persistent bronchitis, pneumonias, pneumonia with sepsis, seasonal allergies, migraines, sinusitis, nasal polyps, aspirin/nsaid allergies, palpitaions, -induced hypertension, gestational diabetes (secondary to steroids during ). History of Any Multi-Drug Resistant Organisms: None Reported Past Surgical History: Section, Tubal Ligation Additional Past Surgical History / Comment(s): Bronchosopies, 4 nasal po lypectomies, 2 C-Sections, PICC line insertion/removed Past Anesthesia/Blood Transfusion Reactions: No Reported Reaction Past Psychological History: No Psychological Hx Reported Smoking Status: Never smoker Past Alcohol Use History: Rare Past Drug Use History: None Reported - Past Family History Father Family Medical History: Unable to Obtain Additional Family Medical History / Comment(s): Pt was adopted mother Family Medical History: Unable to Obtain Additional Family Medical History / Comment(s): pt is adopted and does not know family history General Exam Limitations: no limitations General appearance: alert, in no apparent distress, anxious Head exam: Present: atraumatic, normocephalic, normal inspection Eye exam: Present: normal appearance, PERRL, EOMI. Absent: scleral icterus, conjunctival injection, periorbital swelling ENT exam: Present: normal exam, mucous membranes moist Neck exam: Present: normal inspection. Absent: tenderness, meningismus, lympha denopathy Respiratory exam: Present: respiratory distress, wheezes, accessory muscle use, decreased breath sounds, prolonged expiratory. Absent: rales, rhonchi, stridor Cardiovascular Exam: Present: normal rhythm, tachycardia, normal heart sounds. Absent: systolic murmur, diastolic murmur, rubs, gallop, clicks GI/Abdominal exam: Present: soft, normal bowel sounds. Absent: distended, tenderness, guarding, rebound, rigid Extremities exam: Present: normal inspection, full ROM, normal capillary refill. Absent: tenderness, pedal edema, joint swelling, calf tenderness Back exam: Present: normal inspection Neurological exam: Present: alert, oriented X3, CN II-XII intact Psychiatric exam: Present: normal affect, normal mood Skin exam: Present: warm, dry, intact, normal color. Absent: rash Course Vital Signs 11/12/23 11/12/23 11/12/23 05:23 05:38 05:52 Temperature 98.7 F Pulse Rate 126 H 103 H 108 H Respiratory 20 Rate Blood Pressure 98/78 O2 Sat by Pulse 95 Oximetry 11/12/23 11/12/23 11/12/23 06:31 06:44 07:01 Temperature 97.7 F Pulse Rate 114 H 120 H 96 Respiratory 16 Rate Blood Pressure 135/65 O2 Sat by Pulse 100 Oximetry - Reevaluation(s) Reevaluation #1: 11/12/23 06:51 Medical record is reviewed Reevaluation #2: 11/12/23 06:51 Patient symptoms are improved Reevaluation #3: 11/12/23 06:51 Patient informed of results questions answered Reevaluation #4: Was pt. sent in by a medical professional or institution (, PA, MIX HOUSE OPERATOR, urgent care, hospital, or senior care...) When possible be specific @ -no Did you speak to anyone other than the patient for history (EMS, parent, family, police, friend...)? What history was obtained from this source @ -no Did you review nursing and triage notes (agree or disagree)? Why? @ -agree Are old charts reviewed (outside hosp., previous admission, EMS record, old EKG, old radiological studies, urgent care reports/EKG's, senior care records)? Report findings @ -yes Differential Diagnosis (chest pain, altered mental status, abdominal pain women, abdominal pain men, vaginal bleeding, weakness, fever, dyspnea, syncope, headache, dizziness, GI bleed, back pain, seizure, CVA, palpatations, mental h ealth, musculoskeletal)? @ -prior EKG interpreted by me (3pts min.). @ -no X-rays interpreted by me (1pt min.). @ -yes negative for acute disease CT interpreted by me (1pt min.). @ -no U/S interpreted by me (1pt. min.). @ -no What testing was considered but not performed or refused? (CT, X-rays, U/S, labs)? Why? @ -none What meds were considered but not given or refused? Why? @ -none Did you discuss the management of the patient with other professionals (professionals i.e. , PA, MIX HOUSE OPERATOR, lab, RT, psych nurse, social worker palliative care, machine worker, teacher, equal opportunity officer, pillowcase cleaner)? Give summary @ -no Was smoking cessation discussed for >3mins.? @ -no Was critical care preformed (if so, how long)? @ -no Were there social determinants of health that impacted care today? How? (Homelessness, low income, unemployed, alcoholism, drug addiction, transportation, low edu. Level, literacy, decrease access to med. care, prison, rehab)? @ -none Was there de-escalation of care discussed even if they declined (Discuss DNR or withdrawal of care, Hospice)? DNR status @ -no What co-morbidities impacted this encounter? (DM, HTN, Smoking, COPD, CAD, Cancer, CVA, ARF, Chemo, Hep., AIDS, mental health diagnosis, sleep apnea, morbid obesity)? @ -none Was patient admitted / discharged? Hospital course, mention meds given and route, prescriptions, significant lab abnormalities, going to OR and other pe rtinent info. @ - 33 Female to ER for evaluation of severe asthma exacerbation will increase steroid dosing at home placed on cough control can be discharged home Discharge asthma exacerbation Undiagnosed new problem with uncertain prognosis? @ -no Drug Therapy requiring intensive monitoring for toxicity (Heparin, Nitro, Insulin, Cardizem)? @ -no Were any procedures done? @ -no Diagnosis/symptom? @ - Acute, or Chronic, or Acute on Chronic? @ -Acute Uncomplicated (without systemic symptoms) or Complicated (systemic symptoms)? @ -Complicated Side effects of treatment? @ -no Exacerbation, Progression, or Severe Exacerbation? @ -exacerbation Poses a threat to life or bodily function? How? (Chest pain, [place], [place], pneumonia, PE, COPD, DKA, ARF, appy, cholecystitis, CVA, Diverticulitis, Homicidal, Suicidal, threat to staff... and all critical care pts) @ -no Reevaluation #5: Differential Dyspnea: Coronary syndrome, arrhythmia, tamponade, asthma, COPD, pulmonary embolism, pneumonia, pneumothorax, pulmonary effusion, anaphylaxis, diabetic ketoacidosis, flailed chest, pulmonary contusion, diaphragmatic rupture, anemia, neuromuscular, this is not meant to be an all-inclusive list. Medical Decision Making - Medical Decision Making 33 Female to ER for evaluation of severe asthma exacerbation will increase steroid dosing at home placed on cough control can be discharged home - Lab Data Result diagrams: 11/12/23 05:37 11/12/23 05:37 Lab Results 11/12/23 11/12/23 11/12/23 Range/Units 05:37 05:37 05:37 WBC 12.4 H (3.8-10.6) k/uL RBC 5.22 (3.80-5.40) m/uL Hgb 15.2 (11.4-16.0) gm/dL Hct 46.3 H (34.0-46.0) % MCV 88.6 (80.0-100.0) fL MCH 29.1 (25.0-35.0) pg MCHC 32.9 (31.0-37.0) g/dL RDW 13.0 (11.5-15.5) % Plt Count 364 (150-450) k/uL MPV 7.9 Neutrophils % (Manual) 28 % Lymphocytes % (Manual) 35 % Monocytes % (Manual) 8 % Eosinophils % (Manual) 28 % Basophils % (Manual) 1 % Neutrophils # (Manual) 3.47 (1.3-7.7) k/uL Lymphocytes # (Manual) 4.34 (1.0-4.8) k/uL Monocytes # (Manual) 0.99 (0-1.0) k/uL Eosinophils # (Manual) 3.47 H (0-0.7) k/uL Basophils # (Manual) 0.12 (0-0.2) k/uL Nucleated RBCs 0 (0-0) /100 WBC Manual Slide Review Performed RBC Morphology Normal Sodium 139 (137-145) mmol/L Potassium 4.2 (3.5-5.1) mmol/L Chloride 111 H (98-107) mmol/L Carbon Dioxide 21 L (22-30) mmol/L Anion Gap 7 mmol/L BUN 9 (7-17) mg/dL Creatinine 0.77 (0.52-1.04) mg/dL Est GFR (CKD-EPI)AfAm >90 (>60 ml/min/1.73 sqM) Est GFR (CKD-EPI)NonAf >90 (>60 ml/min/1.73 sqM) Glucose 90 (74-99) mg/dL Calcium 9.6 (8.4-10.2) mg/dL Total Bilirubin 0.5 (0.2-1.3) mg/dL AST 21 (14-36) U/L ALT 22 (4-34) U/L Alkaline Phosphatase 38 (38-126) U/L Troponin I <0.012 (0.000-0.034) ng/mL NT-Pro-B Natriuret Pep <20 pg/mL Total Protein 7.0 (6.3-8.2) g/dL Albumin 4.2 (3.5-5.0) g/dL - Radiology Data Radiology results: report reviewed (CXR is negative for acute disase), image reviewed Disposition Clinical Impression: Asthma, Asthma with exacerbation Disposition: HOME SELF-CARE Condition: Good Instructions (If sedation given, give patient instructions): Asthma (ED), Asthma in Children (ED), Bronchospasm (ED) Is patient prescribed a controlled substance at d/c from ED?: No Referrals: None,Stated [Primary Care Provider] - 1-2 days
[2023-11-12] MEDS: IPRATROPIUM-ALBUTEROL 3 ML NEB INHALATION STA ×3 (05:35→06:29)
[2023-11-12] MEDS: methylPREDNISolone SOD SUCCI 125 MG/2 ML VIAL IV STA (05:35)
[2023-11-12] MEDS: TERBUTALINE 1 MG/ML VIAL SQ STA (05:38)
[2023-11-12] MEDS: MAGNESIUM SULFATE-D5W PMX 1 GM in DEXTROSE/WATER 1 100ML.BAG IVPB STA (05:40)
[2023-11-12] MEDS: SODIUM CHLORIDE 0.9% 1,000 ML IV STA (05:43)
[2023-11-12 05:47] LABS: HCT 46.3 % (34.0-46.0); HGB 15.2 gm/dL (11.4-16.0); MCH 29.1 pg (25.0-35.0); MCHC 32.9 g/dL (31.0-37.0); MCV 88.6 fL (80.0-100.0); Mean Platelet Volume 7.9; Platelet Count 364 k/uL (150-450); RBC 5.22 m/uL (3.80-5.40); WBC 12.4 k/uL (3.8-10.6)
[2023-11-12 05:57] LABS: ALT 22 U/L (4-34); AST 21 U/L (14-36); African American GFR (CKD) >90 (>60 ml/min/1.73 sqM); Albumin 4.2 g/dL (3.5-5.0); Alkaline Phosphatase 38 U/L (38-126); Anion Gap 7 mmol/L; Blood Urea Nitrogen 9 mg/dL (7-17); Calcium 9.6 mg/dL (8.4-10.2); Carbon Dioxide 21 mmol/L (22-30); Chloride 111 mmol/L (98-107); Glucose 90 mg/dL (74-99); Non-African American GFR(CKD) >90 (>60 ml/min/1.73 sqM); Potassium 4.2 mmol/L (3.5-5.1); Sodium 139 mmol/L (137-145); Total Bilirubin 0.5 mg/dL (0.2-1.3)
[2023-11-12 06:06] LABS: NT-Pro-B-Type Natriuretic Pept <20 pg/mL
[2023-11-12] MEDS: BENZONATATE 100 MG CAP PO STA (06:26)
[2023-11-12 06:39] LABS: Basophils # (M) 0.12 k/uL (0-0.2); Eosinophils # (M) 3.47 k/uL (0-0.7); Lymphocytes # (M) 4.34 k/uL (1.0-4.8); Monocytes # (M) 0.99 k/uL (0-1.0); Neutrophils # (M) 3.47 k/uL (1.3-7.7); Neutrophils % (M) 28 %; Nucleated Red Blood Cells 0 /100 WBC (0-0); RBC Morphology Normal; Total Cells Counted 100
[2023-11-12] MEDS: SODIUM CHLORIDE 0.9% 500 ML 500 ML IV STA (06:43)
[2023-11-12 07:04] VITALS: BP 135/65; PULSE 96; RESP 16; TEMP 97.7
--- NOTE | 2023-11-12 07:47 | XR ---
EXAMINATION TYPE: XR chest 1V portable DATE OF EXAM: 11/12/2023 COMPARISON: 05/27/2022 HISTORY: Chest pain TECHNIQUE: Single frontal view of the chest is obtained. FINDINGS: There is no focal air space opacity, pleural effusion, or pneumothorax seen. The cardiac silhouette size is within normal limits. The osseous structures are intact. IMPRESSION: 1. No acute process.
== END 2023-11-12 07:10 | disposition home or self-care (01) ==
LOC: EC 05:19
DX: J45.901 Unspecified asthma with (acute) exacerbation (principal); Z88.0 Allergy status to penicillin; Z88.2 Allergy status to sulfonamides; Z88.1 Allergy status to other antibiotic agents; Z88.6 Allergy status to analgesic agent; Z88.8 Allergy status to other drugs, medicaments and biological substances
CPT/HCPCS: 36415; 94640 ×2; 83880; 80053; 84484; 85025; 71045; 99285; 96365; 96375; 96372; J3105; J3475; J2919

== ENCOUNTER 2023-11-16 08:48 | Inpatient (IN) | payer OTHER ==
[2023-11-16] MEDS: methylPREDNISolone SOD SUCCI 125 MG/2 ML VIAL IV STA (09:26)
[2023-11-16] MEDS: SODIUM CHLORIDE 0.9% 1,000 ML IV STA (09:28)
[2023-11-16] MEDS: MAGNESIUM SULFATE-D5W PMX 1 GM in DEXTROSE/WATER 1 100ML.BAG IVPB STA (09:30)
[2023-11-16] MEDS: TERBUTALINE 1 MG/ML VIAL SQ STA (09:32)
--- NOTE | 2023-11-16 09:44 | ED ---
SOB HPI - General Chief Complaint: Shortness of Breath Stated Complaint: SOB Time Seen by Provider: 11/16/23 09:11 Source: patient, RN notes reviewed Mode of arrival: ambulatory Limitations: no limitations - History of Present Illness Initial Comments: This is a 33-year-old female who presents to the emergency department for difficulty breathing. Patient has a history of fairly severe asthma. She was evaluated here 4 days ago for the same symptoms and states that she continues to worsen. She is currently on steroids and is doing multiple at home breathing treatments and using inhalers without any relief. Denies any fevers or chills. Reports an associated nonproductive cough. She has been hospitalized several times for this and also has a history of intubation. Patient is struggling to speak and catch her breath in conversation and in obvious respiratory distress. MD Complaint: shortness of breath, cough - Related Data Home Medications Medication Instructions Recorded Confirmed Fluticasone Propion/Salmeterol 1 puff INHALATION RT-DAILY 05/13/22 11/16/23 [Advair 500-50 Diskus] predniSONE 25 mg PO BID 05/13/22 11/16/23 Dupilumab [Dupixent Pen] 300 mg SQ Q14D 11/16/23 11/16/23 Scopolamine [Scopolamine 1 MG/72 1 patch TRANSDERM Q72H PRN 11/16/23 11/16/23 HR patch] Previous Rx's Medication Instructions Recorded Albuterol Inhaler [Ventolin Hfa 2 puff INHALATION RT-Q4H PRN #1 02/26/17 Inhaler] puff Montelukast [Singulair] 10 mg PO HS #30 tab 03/27/17 Allergies Allergy/AdvReac Type Severity Reaction Status Date / Time amoxicillin [Amoxicillin] Allergy Severe Rash/Hives Verified 11/16/23 13:23 ciprofloxacin [From Cipro] Allergy Severe Rash/Hives Verified 11/16/23 13:23 ciprofloxacin HCl Allergy Severe Rash/Hives Verified 11/16/23 13:23 [From Cipro] fluticasone propionate Allergy Severe Rash/Hives Verified 11/16/23 13:23 [From Advair Diskus] levofloxacin Allergy Severe Rash/Hives Verified 11/16/23 13:23 Proton Pump Inhibitors Allergy Severe Rash/Hives Verified 11/16/23 13:23 salmeterol xinafoate Allergy Severe Rash/Hives Verified 11/16/23 13:23 [From Advair Diskus] zolmitriptan [From Zomig] Allergy Severe Anaphylaxis Verified 11/16/23 13:23 sulfamethoxazole Allergy Intermediate Rash/Hives Verified 11/16/23 13:23 [From Bactrim] trimethoprim [From Bactrim] Allergy Intermediate Rash/Hives Verified 11/16/23 13:23 ketorolac tromethamine Allergy Anaphylaxis Verified 11/16/23 13:23 [From Toradol] NSAIDS (Non-Steroidal Allergy Anaphylaxis Verified 11/16/23 13:23 Anti-Inflamma PROPELLE Allergy Unknown Uncoded 11/16/23 08:55 Review of Systems ROS Statement: Those systems with pertinent positive or pertinent negative responses have been documented in the HPI. ROS Other: All systems not noted in ROS Statement are negative. Past Medical History Past Medical History: Asthma, Pneumonia Additional Past Medical History / Comment(s): Asthma and has been on ventilator in the past, severe persistent bronchitis, pneumonias, pneumonia with sepsis, seasonal allergies, migraines, sinusitis, nasal polyps, aspirin/nsaid allergies, palpitaions, -induced hypertension, gestational diabetes (secondary to steroids during ). History of Any Multi-Drug Resistant Organisms: None Reported Past Surgical History: Section, Tubal Ligation Additional Past Surgical History / Comment(s): Bronchosopies, 4 nasal polypectomies, 2 C-Sections, PICC line insertion/removed Past Anesthesia/Blood Transfusion Reactions: No Reported Reaction Past Psychological History: No Psychological Hx Reported Smoking Status: Never smoker Past Alcohol Use History: Rare Past Drug Use History: None Reported - Past Family History Father Family Medical History: Unable to Obtain Additional Family Medical History / Comment(s): Pt was adopted mother Family Medical History: Unable to Obtain Additional Family Medical History / Comment(s): pt is adopted and does not know family history General Exam Limitations: no limitations General appearance: alert, in distress Head exam: Present: atraumatic, normocephalic, normal inspection Respiratory exam: Present: respiratory distress, wheezes, accessory muscle use, decreased breath sounds, prolonged expiratory Cardiovascular Exam: Present: normal rhythm, tachycardia Neurological exam: Present: alert, oriented X3, CN II-XII intact Psychiatric exam: Present: normal affect, normal mood Skin exam: Present: warm, dry, intact, normal color. Absent: rash Course Vital Signs 11/16/23 11/16/23 11/16/23 08:51 08:58 09:00 Temperature 98.4 F Pulse Rate 133 H 103 H Respiratory 28 H 30 H 30 H Rate Blood Pressure 133/76 O2 Sat by Pulse 94 L 95 Oximetry 11/16/23 11/16/23 11/16/23 09:59 10:06 11:22 Temperature Pulse Rate 114 H 103 H 86 Respiratory 24 18 Rate Blood Pressure 126/79 O2 Sat by Pulse 99 Oximetry 11/16/23 12:33 Temperature 98.1 F Pulse Rate 91 Respiratory 18 Rate Blood Pressure 126/79 O2 Sat by Pulse 97 Oximetry Medical Decision Making - Medical Decision Making This is a 33 year old female who presents to the emergency department for shortness of breath. Was pt. sent in by a medical professional or institution? @ -No Did you speak to anyone other than the patient for history? @ -No Did you review nursing and triage notes? @ -Yes, and I agree, it is accurate with regards to the patient's symptoms. Were old charts reviewed? @ -No Differential Diagnosis? @ -Differential Dyspnea: Coronary syndrome, arrhythmia, tamponade, asthma, COPD, pulmonary embolism, pneumonia, pneumothorax, pulmonary effusion, anaphylaxis, diabetic ketoacidosis, flailed chest, pulmonary contusion, diaphragmatic rupture, anemia, neuromuscular, this is not meant to be an all-inclusive list. EKG interpreted by me (3pts min.)? @ -EKG interpreted by me demonstrating the following: Sinus tachycardia. Ventricular rate 115 bpm, PA interval 127 ms, QRS duration 85 ms, QTc 381 ms. X-rays interpreted by me (1pt min.)? @ -Chest x-ray obtained, my interpretation identifies no localized consolidations or infiltrates. CT interpreted by me (1pt min.)? @ -Not obtained U/S interpreted by me (1pt. min.)? @ -Not obtained What testing was considered but not performed? (CT, X-rays, U/S, labs)? Why? @ -None What meds were considered but not given? Why? @ -None Did you discuss the management of the patient with other professionals? @ -Yes, Dr. Capps, who accepts the patient for admission. Did you reconcile home meds? @ -No Was smoking cessation discussed for >3mins.? @ -No Was critical care preformed (if so, how long)? @ -No Were there social determinants of health that impacted care today? How? (Homel essness, low income, unemployed, alcoholism, drug addiction, transportation, low edu. Level, literacy, decrease access to med. care, fdc, rehab)? @ -No Was there de-escalation of care discussed even if they declined? (Discuss DNR or withdrawal of care, Hospice)? @ -No What co-morbidities impacted this encounter? (DM, HTN, Smoking, COPD, CAD, Can cer, CVA, Hep., AIDS, mental health diagnosis, sleep apnea, morbid obesity)? @ -Asthma Was patient admitted / discharged? @ -Admitted. Lab work demonstrates leukocytosis with elevated eosinophils. Lab work was otherwise unremarkable. COVID, influenza, and RSV testing negative. Urinalysis negative for signs of infection. Chest x-ray reveals no acute proces s. She was given a DuoNeb breathing treatment with mild improvement in aeration. However she continued to be in respiratory distress and was breathing heavily with accessory muscle use and conversational dyspnea. 125 mg Solu- Medrol administered along with magnesium and terbutaline. Given that the patient continues to worsen and is essentially already on maximum treatment at home, she was admitted to medicine for further management of asthma exacerbation. Case discussed with ED attending Dr. Singh. Undiagnosed new problem with uncertain prognosis? @ -None Drug Therapy requiring intensive monitoring for toxicity (Heparin, Nitro, Insulin, Cardizem)? @ -None Were any procedures done? @ -None Diagnosis/symptom? @ -Asthma exacerbation Acute, or Chronic, or Acute on Chronic? @ -Acute Uncomplicated (without systemic symptoms) or Complicated (systemic symptoms)? @ -Uncomplicated Side effects of treatment? @ -None Exacerbation, Progression, or Severe Exacerbation] @ -Severe exacerbation Poses a threat to life or bodily function? @ -Yes, can lead to respiratory failure and . - Lab Data Result diagrams: 11/16/23 09:34 11/16/23 09:34 Lab Results 11/16/23 11/16/23 11/16/23 Range/Units 09:34 09:34 09:34 WBC 13.8 H (3.8-10.6) k/uL RBC 5.19 (3.80-5.40) m/uL Hgb 15.1 (11.4-16.0) gm/dL Hct 46.2 H (34.0-46.0) % MCV 89.0 (80.0-100.0) fL MCH 29.1 (25.0-35.0) pg MCHC 32.7 (31.0-37.0) g/dL RDW 13.0 (11.5-15.5) % Plt Count 338 (150-450) k/uL MPV 7.9 Neutrophils % (Manual) 44 % Lymphocytes % (Manual) 26 % Monocytes % (Manual) 7 % Eosinophils % (Manual) 23 % Neutrophils # (Manual) 6.07 (1.3-7.7) k/uL Lymphocytes # (Manual) 3.59 (1.0-4.8) k/uL Monocytes # (Manual) 0.97 (0-1.0) k/uL Eosinophils # (Manual) 3.17 H (0-0.7) k/uL Nucleated RBCs 0 (0-0) /100 WBC Manual Slide Review Performed Eosinophil Count, Calc 4013 H (150-300) #EOS/uL PT 10.7 (10.0-12.5) sec INR 1.0 (<1.2) APTT 23.3 (22.0-30.0) sec D-Dimer 0.33 (<0.60) mg/L FEU Sodium 140 (137-145) mmol/L Potassium 4.5 (3.5-5.1) mmol/L Chloride 109 H (98-107) mmol/L Carbon Dioxide 25 (22-30) mmol/L Anion Gap 6 mmol/L BUN 11 (7-17) mg/dL Creatinine 0.77 (0.52-1.04) mg/dL Est GFR (CKD-EPI)AfAm >90 (>60 ml/min/1.73 sqM) Est GFR (CKD-EPI)NonAf >90 (>60 ml/min/1.73 sqM) Glucose 87 (74-99) mg/dL Plasma Lactic Acid Mark (0.7-2.0) mmol/L Calcium 9.6 (8.4-10.2) mg/dL Magnesium 1.9 (1.6-2.3) mg/dL Total Bilirubin 1.0 (0.2-1.3) mg/dL AST 27 (14-36) U/L ALT 26 (4-34) U/L Alkaline Phosphatase 38 (38-126) U/L Troponin I (0.000-0.034) ng/mL Total Protein 7.0 (6.3-8.2) g/dL Albumin 4.3 (3.5-5.0) g/dL HCG, Qual Urine Color Urine Appearance (Clear) Urine pH (5.0-8.0) Ur Specific [place] (1.001-1.035) Urine Protein (Negative) Urine Glucose (UA) (Negative) Urine Ketones (Negative) Urine Blood (Negative) Urine Nitrite (Negative) Urine Bilirubin (Negative) Urine Urobilinogen (<2.0) mg/dL Ur Leukocyte Esterase (Negative) Urine HCG, Qual (Not Detectd) 11/16/23 11/16/23 11/16/23 Range/Units 09:34 09:34 09:34 WBC (3.8-10.6) k/uL RBC (3.80-5.40) m/uL Hgb (11.4-16.0) gm/dL Hct (34.0-46.0) % MCV (80.0-100.0) fL MCH (25.0-35.0) pg MCHC (31.0-37.0) g/dL RDW (11.5-15.5) % Plt Count (150-450) k/uL MPV Neutrophils % (Manual) % Lymphocytes % (Manual) % Monocytes % (Manual) % Eosinophils % (Manual) % Neutrophils # (Manual) (1.3-7.7) k/uL Lymphocytes # (Manual) (1.0-4.8) k/uL Monocytes # (Manual) (0-1.0) k/uL Eosinophils # (Manual) (0-0.7) k/uL Nucleated RBCs (0-0) /100 WBC Manual Slide Review Eosinophil Count, Calc (150-300) #EOS/uL PT (10.0-12.5) sec INR (<1.2) APTT (22.0-30.0) sec D-Dimer (<0.60) mg/L FEU Sodium (137-145) mmol/L Potassium (3.5-5.1) mmol/L Chloride (98-107) mmol/L Carbon Dioxide (22-30) mmol/L Anion Gap mmol/L BUN (7-17) mg/dL Creatinine (0.52-1.04) mg/dL Est GFR (CKD-EPI)AfAm (>60 ml/min/1.73 sqM) Est GFR (CKD-EPI)NonAf (>60 ml/min/1.73 sqM) Glucose (74-99) mg/dL Plasma Lactic Acid Mark 1.3 (0.7-2.0) mmol/L Calcium (8.4-10.2) mg/dL Magnesium (1.6-2.3) mg/dL Total Bilirubin (0.2-1.3) mg/dL AST (14-36) U/L ALT (4-34) U/L Alkaline Phosphatase (38-126) U/L Troponin I <0.012 (0.000-0.034) ng/mL Total Protein (6.3-8.2) g/dL Albumin (3.5-5.0) g/dL HCG, Qual Not Detected Urine Color Urine Appearance (Clear) Urine pH (5.0-8.0) Ur Specific [place] (1.001-1.035) Urine Protein (Negative) Urine Glucose (UA) (Negative) Urine Ketones (Negative) Urine Blood (Negative) Urine Nitrite (Negative) Urine Bilirubin (Negative) Urine Urobilinogen (<2.0) mg/dL Ur Leukocyte Esterase (Negative) Urine HCG, Qual (Not Detectd) 11/16/23 11/16/23 Range/Units 10:48 10:48 WBC (3.8-10.6) k/uL RBC (3.80-5.40) m/uL Hgb (11.4-16.0) gm/dL Hct (34.0-46.0) % MCV (80.0-100.0) fL MCH (25.0-35.0) pg MCHC (31.0-37.0) g/dL RDW (11.5-15.5) % Plt Count (150-450) k/uL MPV Neutrophils % (Manual) % Lymphocytes % (Manual) % Monocytes % (Manual) % Eosinophils % (Manual) % Neutrophils # (Manual) (1.3-7.7) k/uL Lymphocytes # (Manual) (1.0-4.8) k/uL Monocytes # (Manual) (0-1.0) k/uL Eosinophils # (Manual) (0-0.7) k/uL Nucleated RBCs (0-0) /100 WBC Manual Slide Review Eosinophil Count, Calc (150-300) #EOS/uL PT (10.0-12.5) sec INR (<1.2) APTT (22.0-30.0) sec D-Dimer (<0.60) mg/L FEU Sodium (137-145) mmol/L Potassium (3.5-5.1) mmol/L Chloride (98-107) mmol/L Carbon Dioxide (22-30) mmol/L Anion Gap mmol/L BUN (7-17) mg/dL Creatinine (0.52-1.04) mg/dL Est GFR (CKD-EPI)AfAm (>60 ml/min/1.73 sqM) Est GFR (CKD-EPI)NonAf (>60 ml/min/1.73 sqM) Glucose (74-99) mg/dL Plasma Lactic Acid Mark (0.7-2.0) mmol/L Calcium (8.4-10.2) mg/dL Magnesium (1.6-2.3) mg/dL Total Bilirubin (0.2-1.3) mg/dL AST (14-36) U/L ALT (4-34) U/L Alkaline Phosphatase (38-126) U/L Troponin I (0.000-0.034) ng/mL Total Protein (6.3-8.2) g/dL Albumin (3.5-5.0) g/dL HCG, Qual Urine Color Colorless Urine Appearance Clear (Clear) Urine pH 7.0 (5.0-8.0) Ur Specific [place] 1.007 (1.001-1.035) Urine Protein Negative (Negative) Urine Glucose (UA) Negative (Negative) Urine Ketones 1+ H (Negative) Urine Blood Negative (Negative) Urine Nitrite Negative (Negative) Urine Bilirubin Negative (Negative) Urine Urobilinogen <2.0 (<2.0) mg/dL Ur Leukocyte Esterase Negative (Negative) Urine HCG, Qual Not Detected (Not Detectd) - Radiology Data Radiology results: report reviewed, image reviewed Disposition Clinical Impression: Asthma exacerbation Disposition: ADMITTED IP TO THIS HOSP
[2023-11-16 09:47] LABS: HCT 46.2 % (34.0-46.0); HGB 15.1 gm/dL (11.4-16.0); MCH 29.1 pg (25.0-35.0); MCHC 32.7 g/dL (31.0-37.0); Mean Platelet Volume 7.9; Platelet Count 338 k/uL (150-450); RBC 5.19 m/uL (3.80-5.40); WBC 13.8 k/uL (3.8-10.6)
[2023-11-16] MEDS: IPRATROPIUM-ALBUTEROL 3 ML NEB INHALATION STA (09:58)
[2023-11-16 10:01] LABS: ALT 26 U/L (4-34); AST 27 U/L (14-36); African American GFR (CKD) >90 (>60 ml/min/1.73 sqM); Albumin 4.3 g/dL (3.5-5.0); Alkaline Phosphatase 38 U/L (38-126); Anion Gap 6 mmol/L; Blood Urea Nitrogen 11 mg/dL (7-17); Calcium 9.6 mg/dL (8.4-10.2); Carbon Dioxide 25 mmol/L (22-30); Chloride 109 mmol/L (98-107); Glucose 87 mg/dL (74-99); Magnesium 1.9 mg/dL (1.6-2.3); Non-African American GFR(CKD) >90 (>60 ml/min/1.73 sqM); Potassium 4.5 mmol/L (3.5-5.1); Sodium 140 mmol/L (137-145)
[2023-11-16 10:09] LABS: Partial Thromboplastin Time 23.3 sec (22.0-30.0); Prothrombin Time 10.7 sec (10.0-12.5)
--- NOTE | 2023-11-16 10:20 | XR ---
EXAMINATION TYPE: XR chest 2V DATE OF EXAM: 11/16/2023 COMPARISON: 05/27/2022 HISTORY: Difficulty breathing, history of asthma TECHNIQUE: Frontal and lateral views of the chest are obtained. FINDINGS: There is no focal air space opacity, pleural effusion, or pneumothorax seen. The cardiac silhouette size is within normal limits. The osseous structures are intact. IMPRESSION: No acute cardiopulmonary process.
[2023-11-16 10:43] LABS: Eosinophils # (M) 3.17 k/uL (0-0.7); Lymphocytes # (M) 3.59 k/uL (1.0-4.8); Monocytes # (M) 0.97 k/uL (0-1.0); Neutrophils # (M) 6.07 k/uL (1.3-7.7); Neutrophils % (M) 44 %; Nucleated Red Blood Cells 0 /100 WBC (0-0); Total Cells Counted 100
[2023-11-16 10:57] LABS: Total Eosinophil Count 4013 #EOS/uL (150-300)
[2023-11-16 11:03] LABS: Appearance,Urine Clear (Clear); Bilirubin,Urine Negative (Negative); Blood,Urine Negative (Negative); Color,Urine Colorless; Glucose,Urine (UA) Negative (Negative); Ketones,Urine 1+ (Negative); Leukocyte Esterase,Urine Negative (Negative); Nitrite,Urine Negative (Negative); Protein,Urine Negative (Negative); Specific Gravity,Urine 1.007 (1.001-1.035); Urobilinogen,Urine <2.0 mg/dL (<2.0)
[2023-11-16] MEDS ORDERED: IPRATROPIUM-ALBUTEROL 3 ML NEB INHALATION PRN (11:24)
[2023-11-16] MEDS ORDERED: HYDROcodone/APAP 5-325MG 1 EACH TAB PO PRN (11:36)
[2023-11-16] MEDS ORDERED: ONDANSETRON 4 MG/2 ML VIAL IVP PRN (11:36)
[2023-11-16] MEDS ORDERED: NALOXONE 0.4 MG/ML 1 ML VIAL IV PRN (11:36)
[2023-11-16] MEDS: IPRATROPIUM-ALBUTEROL 3 ML NEB INHALATION SCH (13:21)
--- NOTE | 2023-11-16 13:49 | P.HPIM ---
History of Present Illness H&P Date: 11/16/23 History of Presenting Illness: Patient is a very pleasant 33-year-old female with a past medical history of moderate persistent asthma sinus polyps status post removal, and tubal ligation. 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 She presented to the emergency department with a chief complaint of shortness of breath. Patient reports despite use of home inhalers she has had difficulties controlling her asthma over the past week. She had 1 ER visit on 11/12/2023 and was provided with IV steroids and nebulizer treatments and later discharged home. Patient reports today symptoms again exacerbated and she was getting no air movement and again returned to the emergency department. She reports her shortness of breath is also associated with nonproductive course cough and denies having any fevers, chills, diaphoresis, chest pain, palpitations, nausea, vomiting, or experiencing any numbness/tingling/weakness/swelling in her extremities. Upon arrival to our facility, patient underwent evaluation in the emergency department. Vital signs upon arrival show blood pressure 133/76, heart rate 133, respiratory rate 28, temp 98.4 F, and SpO2 of 94% on room air. EKG was completed showing moderate interference but revealing sinus tachycardia at 115 bpm and no noted T wave or ST abnormalities upon personal review and interpretation. Chest x-ray was negative for acute cardiopulmonary process. Labs were completed and reviewed. CBC showing leukocytosis with WBC count of 13.8, eosinophils 3.17 with calculated eosinophil count of 4013. BMP showing mild hyperchloremia with chloride of 109 otherwise normal findings. Lactic acid 1.3. Glucose 87. Liver profile unremarkable. Magnesium 1.9. Blood hCG negative. Urinalysis and urine hCG also negative. Influenza A, influenza B, RSV, and COVID PCR negative. Patient was given terbutaline, magnesium, DuoNeb treatments, and 125 mg of Solu- Medrol in the emergency department. She was admitted under our services for acute asthma exacerbation with consultation to pulmonology. Review of systems: Pertinent positives and negatives as discussed in HPI, a complete review of systems was performed and all other systems are negative. Physical exam: Vital signs reviewed and stable. General: Nontoxic, appears stated age. Mild distress secondary to increased respiratory effort Derm: Skin warm and dry, normal coloration for ethnicity. Head: Atraumatic, normocephalic and symmetric. Eyes: EOMs intact, no lid lag, and anicteric sclera Mouth: no lip lesions, mucus membranes moist Cardiovascular: Tachycardic rate with regular rhythm, normal S1S2, no murmur, positive posterior tibial pulses bilaterally, and cap refill < 2 seconds. Lungs: Increased work of breathing but no accessory muscle use noted at this time. Respirations even and regular. Lungs tight and diminished throughout with soft diffuse expiratory wheezes in upper lobes. Abdominal: soft, nontender to palpation, no guarding, no appreciable organomegaly Ext: ROM intact. No gross muscle atrophy, no edema, no contractures Neuro: Speech clear, face symmetrical and CN II-XII grossly intact with no noted focal neuro deficits Psych: Alert and oriented to person, place, time, and situation. Appropriate and pleasant affect. Assessment and Plan of Care: Acute respiratory distress Moderate persistent asthma with acute exacerbation Leukocytosis with elevated eosinophil count, secondary to above History of previous intubations secondary to asthma exacerbation -Consult to Pulmonology -Oxygenation to be administered and titrated as needed to maintain SPO2 equal to or greater than 92% -Telemetry monitoring. -Monitor pulse-oximetry -Duonebs schedule IV times daily and as needed for SOB and/or wheezing -Incentive Spirometry -Steroids: Solu-Medrol 60 mg IV every 6 hours -Continue Advair 1 puff twice daily, Singulair 10 mg nightly, and Dupilamab 300 mg subcu every 14 days Data and imaging reviewed: As stated above in HPI The patient is admitted with an anticipated greater than 2 midnight stay for evaluation of acute respiratory distress secondary to asthma exacerbation CODE STATUS: Full code DVT prophylaxis: Lovenox Anticipated discharge date: Pending clinical course Anticipated discharge place: Home Patient was seen independently by Nurse Practitioner. This document was prepared using [employer] dictation software. Please allow for errors in rn teacher while rare they do occur. I reviewed the documentation as provided by the LAUREN above, who is the original author of this note. I agree with the documented assessment and plan, with the following changes: none Past Medical History Past Medical History: Asthma, Pneumonia Additional Past Medical History / Comment(s): Asthma and has been on ventilator in the past, severe persistent bronchitis, pneumonias, pneumonia with sepsis, seasonal allergies, migraines, sinusitis, nasal polyps, aspirin/nsaid allergies, palpitaions, -induced hypertension, gestational diabetes (secondary to steroids during ). History of Any Multi-Drug Resistant Organisms: None Reported Past Surgical History: Section, Tubal Ligation Additional Past Surgical History / Comment(s): Bronchosopies, 4 nasal polypectomies, 2 C-Sections, PICC line insertion/removed Past Anesthesia/Blood Transfusion Reactions: No Reported Reaction Past Psychological History: No Psychological Hx Reported Smoking Status: Never smoker Past Alcohol Use History: Rare Past Drug Use History: None Reported - Past Family History Father Family Medical History: Unable to Obtain Additional Family Medical History / Comment(s): Pt was adopted mother Family Medical History: Unable to Obtain Additional Family Medical History / Comment(s): pt is adopted and does not know family history Medications and Allergies Home Medications Medication Instructions Recorded Confirmed Type Albuterol Inhaler [Ventolin Hfa 2 puff INHALATION RT-Q4H PRN #1 02/26/17 11/16/23 Rx Inhaler] puff Montelukast [Singulair] 10 mg PO HS #30 tab 03/27/17 11/16/23 Rx Fluticasone Propion/Salmeterol 1 puff INHALATION RT-DAILY 05/13/22 11/16/23 History [Advair 500-50 Diskus] predniSONE 25 mg PO BID 05/13/22 11/16/23 History Dupilumab [Dupixent Pen] 300 mg SQ Q14D 11/16/23 11/16/23 History Scopolamine [Scopolamine 1 MG/72 1 patch TRANSDERM Q72H PRN 11/16/23 11/16/23 History HR patch] Allergies Allergy/AdvReac Type Severity Reaction Status Date / Time amoxicillin [Amoxicillin] Allergy Severe Rash/Hives Verified 11/16/23 13:23 ciprofloxacin [From Cipro] Allergy Severe Rash/Hives Verified 11/16/23 13:23 ciprofloxacin HCl Allergy Severe Rash/Hives Verified 11/16/23 13:23 [From Cipro] fluticasone propionate Allergy Severe Rash/Hives Verified 11/16/23 13:23 [From Advair Diskus] levofloxacin Allergy Severe Rash/Hives Verified 11/16/23 13:23 Proton Pump Inhibitors Allergy Severe Rash/Hives Verified 11/16/23 13:23 salmeterol xinafoate Allergy Severe Rash/Hives Verified 11/16/23 13:23 [From Advair Diskus] zolmitriptan [From Zomig] Allergy Severe Anaphylaxis Verified 11/16/23 13:23 sulfamethoxazole Allergy Intermediate Rash/Hives Verified 11/16/23 13:23 [From Bactrim] trimethoprim [From Bactrim] Allergy Intermediate Rash/Hives Verified 11/16/23 13:23 ketorolac tromethamine Allergy Anaphylaxis Verified 11/16/23 13:23 [From Toradol] NSAIDS (Non-Steroidal Allergy Anaphylaxis Verified 11/16/23 13:23 Anti-Inflamma PROPELLE Allergy Unknown Uncoded 11/16/23 08:55 Physical Exam Vitals: Vital Signs Temp Pulse Resp BP Pulse Ox 11/16/23 11:22 86 18 126/79 99 11/16/23 10:06 103 H 24 11/16/23 09:59 114 H 11/16/23 09:00 30 H 11/16/23 08:58 103 H 30 H 95 11/16/23 08:51 98.4 F 133 H 28 H 133/76 94 L Intake and Output 11/15/23 11/16/23 11/16/23 22:59 06:59 14:59 Other: Weight 74.843 kg Results CBC & Chem 7: 11/16/23 09:34 11/16/23 09:34 Labs: Abnormal Lab Results - Last 24 Hours (Table) 11/16/23 11/16/23 11/16/23 Range/Units 09:34 09:34 10:48 WBC 13.8 H (3.8-10.6) k/uL Hct 46.2 H (34.0-46.0) % Eosinophils # (Manual) 3.17 H (0-0.7) k/uL Eosinophil Count, Calc 4013 H (150-300) #EOS/uL Chloride 109 H (98-107) mmol/L Urine Ketones 1+ H (Negative)
--- NOTE | 2023-11-16 15:04 | P.CNPUL ---
History of Present Illness Consult date: 11/16/23 Requesting physician: Luann Capps Reason for consult: dyspnea, cough, asthma Chief complaint: Shortness of breath, cough, chest tightness, wheezing. History of present illness: Pulmonary consult dated November 16, 2023. 33-year-old female well-known to our service. The patient has a history of severe persistent asthma. Recently, her asthma has been more active, she came into the emergency room, earlier this week, on Friday, for shortness of breath, chest tightness, cough, wheezing, etc. Apparently they treated there with breathing treatments, steroids, and magnesium, and discharged from the ER. On and Friday, her asthma seem to get worse again and finally it could not be controlled at home, so she came into the emergency room again, to be evaluated. She came in today, at 9:00 in the morning. She has been coughing, producing only small amount of phlegm. There is no fever or chills. She has been using all of her usual medications. She is typically on Ventolin, albuterol updrafts, Singulair, prednisone, Dupixent, and Advair Diskus. More recently, when she was in the emergency room, Friday, they gave her prednisone burst and taper, beginning with 50 mg. Typically she takes 5 mg daily. Her only other medical history is pneumonia. She does have a history of nasal polyps, and migraine cephalgia. Review of Systems REVIEW OF SYSTEMS: CONSTITUTIONAL: [Negative.] NEUROLOGIC: [ Negative.] HEENT: [ Negative.] CARDIAC: [Negative.] PULMONARY: Shortness of breath, cough, wheezing, chest tightness. GI: [Negative.] : [Negative.] RHEUMATOLOGIC: [ Negative.] IMMUNOLOGIC: [ Negative.] ENDOCRINE: [Negative. ] DERMATOLOGIC: [Negative.] Past Medical History Past Medical History: Asthma, Pneumonia Additional Past Medical History / Comment(s): Asthma and has been on ventilator in the past, severe persistent bronchitis, pneumonias, pneumonia with sepsis, seasonal allergies, migraines, sinusitis, nasal polyps, aspirin/nsaid allergies, palpitaions, -induced hypertension, gestational diabetes (secondary to steroids during ). History of Any Multi-Drug Resistant Organisms: None Reported Past Surgical History: Section, Tubal Ligation Additional Past Surgical History / Comment(s): Bronchosopies, 4 nasal polypectomies, 2 C-Sections, PICC line insertion/removed Past Anesthesia/Blood Transfusion Reactions: No Reported Reaction Past Psychological History: No Psychological Hx Reported Smoking Status: Never smoker Past Alcohol Use History: Rare Past Drug Use History: None Reported - Past Family History Father Family Medical History: Unable to Obtain Additional Family Medical History / Comment(s): Pt was adopted mother Family Medical History: Unable to Obtain Additional Family Medical History / Comment(s): pt is adopted and does not know family history Medications and Allergies Home Medications Medication Instructions Recorded Confirmed Type Albuterol Inhaler [Ventolin Hfa 2 puff INHALATION RT-Q4H PRN #1 02/26/17 11/16/23 Rx Inhaler] puff Montelukast [Singulair] 10 mg PO HS #30 tab 03/27/17 11/16/23 Rx Fluticasone Propion/Salmeterol 1 puff INHALATION RT-DAILY 05/13/22 11/16/23 History [Advair 500-50 Diskus] predniSONE 25 mg PO BID 05/13/22 11/16/23 History Dupilumab [Dupixent Pen] 300 mg SQ Q14D 11/16/23 11/16/23 History Scopolamine [Scopolamine 1 MG/72 1 patch TRANSDERM Q72H PRN 11/16/23 11/16/23 History HR patch] Allergies Allergy/AdvReac Type Severity Reaction Status Date / Time amoxicillin [Amoxicillin] Allergy Severe Rash/Hives Verified 11/16/23 13:23 ciprofloxacin [From Cipro] Allergy Severe Rash/Hives Verified 11/16/23 13:23 ciprofloxacin HCl Allergy Severe Rash/Hives Verified 11/16/23 13:23 [From Cipro] fluticasone propionate Allergy Severe Rash/Hives Verified 11/16/23 13:23 [From Advair Diskus] levofloxacin Allergy Severe Rash/Hives Verified 11/16/23 13:23 Proton Pump Inhibitors Allergy Severe Rash/Hives Verified 11/16/23 13:23 salmeterol xinafoate Allergy Severe Rash/Hives Verified 11/16/23 13:23 [From Advair Diskus] zolmitriptan [From Zomig] Allergy Severe Anaphylaxis Verified 11/16/23 13:23 sulfamethoxazole Allergy Intermediate Rash/Hives Verified 11/16/23 13:23 [From Bactrim] trimethoprim [From Bactrim] Allergy Intermediate Rash/Hives Verified 11/16/23 13:23 ketorolac tromethamine Allergy Anaphylaxis Verified 11/16/23 13:23 [From Toradol] NSAIDS (Non-Steroidal Allergy Anaphylaxis Verified 11/16/23 13:23 Anti-Inflamma PROPELLE Allergy Unknown Uncoded 11/16/23 08:55 Physical Exam Osteopathic Statement: *. No significant issues noted on an osteopathic structural exam other than those noted in the History and Physical/Consult. Vitals: Vital Signs Temp Pulse Pulse Resp BP BP Pulse Ox 11/16/23 13:36 98.5 F 90 16 127/85 96 11/16/23 13:28 88 11/16/23 13:23 98 11/16/23 13:21 72 11/16/23 12:33 98.1 F 91 18 126/79 97 11/16/23 11:22 86 18 126/79 99 11/16/23 10:06 103 H 24 11/16/23 09:59 114 H 11/16/23 09:00 30 H 11/16/23 08:58 103 H 30 H 95 11/16/23 08:51 98.4 F 133 H 28 H 133/76 94 L Intake and Output 11/15/23 11/16/23 11/16/23 22:59 06:59 14:59 Other: Weight 74.843 kg No acute distress, oriented 3. No respiratory distress. No audible wheezing. No conversational dyspnea. HEENT examination is grossly unremarkable. Mucous membranes are moist. No oral lesions. Neck supple. Full range of motion. No adenopathy thyromegaly or neck vein distention. Cardiovascular examination reveals regular rhythm rate. S1-S2 normal. No S3 or S4. No discernible murmur noted. Heart rate 90 bpm. Lungs reveal diminished bilateral breath sounds. Expiratory rhonchi and wheezes are noted, particularly on forced maneuver. No crackles. Room air resting saturation 96%. Abdomen soft bowel sounds are heard. No masses or tenderness. Extremities are intact. No cyanosis clubbing or edema. Skin is without rash or lesion. Neurologic examination is brief but nonfocal. Results - Laboratory Findings CBC and BMP: 11/16/23 09:34 11/16/23 09:34 PT/INR, D-dimer PT 10.7 sec (10.0-12.5) 11/16/23 09:34 INR 1.0 (<1.2) 11/16/23 09:34 D-Dimer 0.33 mg/L FEU (<0.60) 11/16/23 09:34 Abnormal lab findings: Abnormal Labs 11/16/23 11/16/23 11/16/23 09:34 09:34 10:48 WBC 13.8 H Hct 46.2 H Eosinophils # (Manual) 3.17 H Eosinophil Count, Calc 4013 H Chloride 109 H Urine Ketones 1+ H - Diagnostic Findings Chest x-ray: image reviewed Assessment and Plan Assessment: Severe persistent asthma, with an acute asthma exacerbation. 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 History of migraine cephalgia. History of pneumonia. Prior episode of respiratory failure requiring intubation and mechanical ventilation. History of seasonal allergies. Plan: Plan dated November 16, 2023. Labs, x-rays, and all medications are reviewed. The patient's chest x-ray is normal. He is not requiring any supplemental oxygen. Will make sure the patient gets appropriate medications, including albuterol sulfate, ipratropium bromide, Solu-Medrol, Singulair, and budesonide and formoterol. Additional recommendations and suggestions are forthcoming. Time with Patient: Greater than 30
[2023-11-16] MEDS: methylPREDNISolone SOD SUCCI 125 MG/2 ML VIAL IV SCH (16:22)
[2023-11-16] MEDS: BUDESONIDE 1 MG/2 ML NEBU INHALATION SCH (19:40)
[2023-11-16] MEDS: FORMOTEROL FUMARATE 20 MCG/2 ML NEBU INHALATION SCH (19:40)
[2023-11-16] MEDS: ACETAMINOPHEN TAB 325 MG TAB PO PRN (21:44)
[2023-11-16] MEDS: MONTELUKAST 10 MG TAB PO SCH (21:44)
[2023-11-17] MEDS: ADVAIR INHALATION SCH (07:49)
[2023-11-17] MEDS: ENOXAPARIN 40 MG/0.4 ML SYRINGE SQ SCH (09:20)
[2023-11-17] MEDS: DUPILUMAB 300 MG/2 ML SQ SCH (09:22)
--- NOTE | 2023-11-17 13:39 | P.PN ---
Subjective Progress Note Date: 11/17/23 33-year-old female well-known to our service. The patient has a history of severe persistent asthma. Recently, her asthma has been more active, she came into the emergency room, earlier this week, on Friday, for shortness of breath, chest tightness, cough, wheezing, etc. Apparently they treated there with breathing treatments, steroids, and magnesium, and discharged from the ER. On and Friday, her asthma seem to get worse again and finally it could not be controlled at home, so she came into the emergency room again, to be evaluated. She came in today, at 9:00 in the morning. She has been coughing, producing only small amount of phlegm. There is no fever or chills. She has been using all of her usual medications. She is typically on Ventolin, albuterol updrafts, Singulair, prednisone, Dupixent, and Advair Diskus. More recently, when she was in the emergency room, Friday, they gave her prednisone burst and taper, beginning with 50 mg. Typically she takes 5 mg daily. Her only other medical history is pneumonia. She does have a history of nasal polyps, and migraine cephalgia. The patient is seen today November 17, 2023 in follow-up on the regular medical floor. She is currently sitting up in bed. Awake and alert in no acute distress. She is breathing better today compared to yesterday. Still not quite back to her baseline. Still somewhat bronchospastic and wheezing. She is maintaining good O2 saturations in the 90s on room air. She is continued on DuoNeb inhalations, Pulmicort and Perforomist inhalations, Solu-Medrol and Singulair. No new labs today. Objective - Vital Signs Vital signs: Vital Signs Temp 98.4 F 11/17/23 10:44 Pulse 80 11/17/23 11:39 Resp 20 11/17/23 10:44 BP 123/76 11/17/23 10:44 Pulse Ox 97 11/17/23 10:44 FiO2 Intake & Output 11/16/23 11/17/23 11/17/23 18:59 06:59 18:59 Weight 74.843 kg Other: Voiding Method Toilet # Voids 1 2 - Exam GENERAL EXAM: Alert, very pleasant 33-year-old female, on room air, fairly comfortable in no apparent distress. HEAD: Normocephalic. EYES: Normal reaction of pupils, equal size. NOSE: Clear with pink turbinates. THROAT: No erythema or exudates. NECK: No masses, no JVD. CHEST: No chest wall deformity. LUNGS: Equal air entry with bilateral end expiratory wheeze. CVS: S1 and S2 normal with no audible murmur, regular rhythm. ABDOMEN: No hepatosplenomegaly, normal bowel sounds, no guarding or rigidity. SPINE: No scoliosis or deformity SKIN: No rashes CENTRAL NERVOUS SYSTEM: No focal deficits, tone is normal in all 4 extremities. EXTREMITIES: There is no peripheral edema. No clubbing, no cyanosis. Peripheral pulses are intact. - Labs CBC & Chem 7: 11/16/23 09:34 11/16/23 09:34 Assessment and Plan Assessment: Severe persistent asthma, with an acute asthma exacerbation. 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 History of migraine cephalgia. History of pneumonia. Prior episode of respiratory failure requiring intubation and mechanical ventilation. History of seasonal allergies. Plan: The patient was seen and evaluated Medications reviewed Continue the current treatment plan Stable and on room air Probable discharge in the a.m. I have personally seen and examined the patient, performed the documentation and the assessment and plan as written. Number of minutes spent on the visit: 10.
--- NOTE | 2023-11-17 15:22 | P.PN ---
Subjective Progress Note Date: 11/17/23 Principal diagnosis: I reviewed the documentation as provided by the LAUREN above, who is the original author of this note. I agree with the documented assessment and plan, with the following changes: none Hospital course: Patient is a very pleasant 33-year-old female with a past medical history of moderate persistent asthma sinus polyps status post removal, and tubal ligation. She reports her learning disabilities resource teacher is Dr. Christina and has a history of needing for intubation x 3 events due to asthma exacerbations in the past. She presented to the emergency department with a chief complaint of shortness of breath. Patient reports despite use of home inhalers she has had difficulties controlling her asthma over the past week. She had 1 ER visit on 11/12/2023 and was provided with IV steroids and nebulizer treatments and later discharged home. Patient reports today symptoms again exacerbated and she was getting no air movement and again returned to the emergency department. She reports her shortness of breath is also associated with nonproductive course cough and denies having any fevers, chills, diaphoresis, chest pain, palpitations, nausea, vomiting, or experiencing any numbness/tingling/weakness/swelling in her extremities. Upon arrival to our facility, patient underwent evaluation in the emergency department. Vital signs upon arrival show blood pressure 133/76, heart rate 133, respiratory rate 28, temp 98.4 F, and SpO2 of 94% on room air. EKG was completed showing moderate interference but revealing sinus tachycardia at 115 bpm and no noted T wave or ST abnormalities upon personal review and interpretation. Chest x-ray was negative for acute cardiopulmonary process. Labs were completed and reviewed. CBC showing leukocytosis with WBC count of 13.8, eosinophils 3.17 with calculate d eosinophil count of 4013. BMP showing mild hyperchloremia with chloride of 109 otherwise normal findings. Lactic acid 1.3. Glucose 87. Liver profile unremarkable. Magnesium 1.9. Blood hCG negative. Urinalysis and urine hCG also negative. Influenza A, influenza B, RSV, and COVID PCR negative. Patient was given terbutaline, magnesium, DuoNeb treatments, and 125 mg of Solu-Medrol in the emergency department. She was admitted under our services for acute asthma exacerbation with consultation to pulmonology. Physical exam: Patient reports much improved breathing today compared to yesterday. She is still not back to her baseline but feeling much better. Vital signs reviewed and stable. General: Nontoxic, appears stated age. Mild distress secondary to increased respiratory effort Derm: Skin warm and dry, normal coloration for ethnicity. Head: Atraumatic, normocephalic and symmetric. Eyes: EOMs intact, no lid lag, and anicteric sclera Mouth: no lip lesions, mucus membranes moist Cardiovascular: Regular rate and rhythm, normal S1S2, no murmur, positive posterior tibial pulses bilaterally, and cap refill < 2 seconds. Lungs: Respirations even, regular, and unlabored. Lungs with much better movement but continues to have soft expiratory wheezes throughout. Abdominal: soft, nontender to palpation, no guarding, no appreciable or ganomegaly Ext: ROM intact. No gross muscle atrophy, no edema, no contractures Neuro: Speech clear, face symmetrical and CN II-XII grossly intact with no noted focal neuro deficits Psych: Alert and oriented to person, place, time, and situation. Appropriate and pleasant affect. Assessment and Plan of Care: Acute respiratory distress Severe persistent asthma with acute exacerbation Leukocytosis with elevated eosinophil count, secondary to above History of previous intubations secondary to asthma exacerbation -Consult to Pulmonology -Oxygenation to be administered and titrated as needed to maintain SPO2 equal to or greater than 92% -Telemetry monitoring. -Monitor pulse-oximetry -Duonebs schedule IV times daily and as needed for SOB and/or wheezing -Incentive Spirometry -Steroids: Solu-Medrol 60 mg IV every 6 hours -Continue Advair 1 puff twice daily, Singulair 10 mg nightly, and Dupilamab 300 mg subcu every 14 days Data and imaging reviewed: Vital signs reviewed. Blood pressure 108/67, heart rate 77, respiratory rate 20, temp 98.0 F, and SpO2 of 94% on room air. Discussed with learning disabilities resource teacher RN OPERATING ROOM, likely discharge home tomorrow. Patient to continue with current steroid dose as well as scheduled and as needed breathing treatments. CODE STATUS: Full code DVT prophylaxis: Lovenox Anticipated discharge date: Likely within the next 24 hours, likely discharge home tomorrow morning Anticipated discharge place: Home Patient was seen independently by Nurse Practitioner. This document was prepared using [employer] dictation software. Please allow for errors in bar tacker sewing machine while rare they do occur. . Objective - Vital Signs Vital signs: Vital Signs Temp 98.0 F 11/17/23 07:06 Pulse 80 11/17/23 08:13 Resp 20 11/17/23 07:06 BP 108/67 11/17/23 07:06 Pulse Ox 94 L 11/17/23 07:06 FiO2 Intake & Output 11/16/23 11/17/23 11/17/23 18:59 06:59 18:59 Weight 74.843 kg Other: # Voids 1 2 - Labs CBC & Chem 7: 11/16/23 09:34 11/16/23 09:34 Labs: Abnormal Lab Results - Last 24 Hours (Table) 11/16/23 11/16/23 11/16/23 Range/Units 09:34 09:34 10:48 WBC 13.8 H (3.8-10.6) k/uL Hct 46.2 H (34.0-46.0) % Eosinophils # (Manual) 3.17 H (0-0.7) k/uL Eosinophil Count, Calc 4013 H (150-300) #EOS/uL Chloride 109 H (98-107) mmol/L Urine Ketones 1+ H (Negative)
[2023-11-18 04:27] LABS: ALT 101 U/L (4-34); African American GFR (CKD) >90 (>60 ml/min/1.73 sqM); Albumin 4.1 g/dL (3.5-5.0); Albumin/Globulin Ratio 1.6; Anion Gap 8 mmol/L; Blood Urea Nitrogen 14 mg/dL (7-17); Calcium 9.1 mg/dL (8.4-10.2); Carbon Dioxide 18 mmol/L (22-30); Chloride 110 mmol/L (98-107); Globulin 2.6 g/dL; Glucose 127 mg/dL (74-99); Non-African American GFR(CKD) >90 (>60 ml/min/1.73 sqM); Sodium 136 mmol/L (137-145); Total Bilirubin 0.7 mg/dL (0.2-1.3); Total Protein 6.7 g/dL (6.3-8.2)
[2023-11-18 04:33] LABS: AST 64 U/L (14-36); Alkaline Phosphatase 46 U/L (38-126); Magnesium 2.1 mg/dL (1.6-2.3); Potassium 4.7 mmol/L (3.5-5.1)
[2023-11-18] MEDS ORDERED: guaiFENesin SYRUP 100MG/5ML 200 MG/10 ML CUP PO PRN (08:52)
--- NOTE | 2023-11-18 08:53 | P.PN ---
Subjective Progress Note Date: 11/18/23 Hospital course: Patient is a very pleasant 33-year-old female with a past medical history of moderate persistent asthma sinus polyps status post removal, and tubal ligation. She reports her survey technologist is Dr. Christina and has a history of needing for intubation x 3 events due to asthma exacerbations in the past. She presented to the emergency department with a chief complaint of shortness of breath. Patient reports despite use of home inhalers she has had difficulties controlling her asthma over the past week. She had 1 ER visit on 11/12/2023 and was provided with IV steroids and nebulizer treatments and later discharged home. Patient reports today symptoms again exacerbated and she was getting no air movement and again returned to the emergency department. She reports her shortness of breath is also associated with nonproductive course cough and denies having any fevers, chills, diaphoresis, chest pain, palpitations, nausea, vomiting, or experiencing any numbness/tingling/weakness/swelling in her extremities. Upon arrival to our facility, patient underwent evaluation in the emergency department. Vital signs upon arrival show blood pressure 133/76, heart rate 133, respiratory rate 28, temp 98.4 F, and SpO2 of 94% on room air. EKG was completed showing moderate interference but revealing sinus tachycardia at 115 bpm and no noted T wave or ST abnormalities upon personal review and interpretation. Chest x-ray was negative for acute cardiopulmonary process. Labs were completed and reviewed. CBC showing leukocytosis with WBC count of 13.8, eosinophils 3.17 with calculated eosinophil count of 4013. BMP showing mild hyperchloremia with chloride of 109 otherwise normal findings. Lactic acid 1.3. Glucose 87. Liver profile unremarkable. Magnesium 1.9. Blood hCG negative. Urinalysis and urine hCG also negative. Influenza A, influenza B, RSV, and COVID PCR negative. Patient was given terbutaline, magnesium, DuoNeb treatments, and 125 mg of Solu- Medrol in the emergency department. She was admitted under our services for acute asthma exacerbation with consultation to pulmonology. Physical exam: Patient seen and fully evaluated at bedside this morning. She was very bron hospastic and coughing. Again reporting difficulty breathing. Patient's lungs tight with diffuse expiratory wheezes. Vital signs reviewed and stable. General: Nontoxic, appears stated age. Mild distress secondary to increased respiratory effort Derm: Skin warm and dry, normal coloration for ethnicity. Head: Atraumatic, normocephalic and symmetric. Eyes: EOMs intact, no lid lag, and anicteric sclera Mouth: no lip lesions, mucus membranes moist Cardiovascular: Regular rate and rhythm, normal S1S2, no murmur, positive posterior tibial pulses bilaterally, and cap refill < 2 seconds. Lungs: Respirations even and regular with increased work of breathing.. Lungs very tight and diminished with diffuse expiratory wheezes. Abdominal: soft, nontender to palpation, no guarding, no appreciable organomegaly Ext: ROM intact. No gross muscle atrophy, no edema, no contractures Neuro: Speech clear, face symmetrical and CN II-XII grossly intact with no noted focal neuro deficits Psych: Alert and oriented to person, place, time, and situation. Appropriate and pleasant affect. Assessment and Plan of Care: Acute respiratory distress Severe persistent asthma with acute exacerbation Leukocytosis with elevated eosinophil count, secondary to above History of previous intubations secondary to asthma exacerbation -Pulmonary following, discussed plan of care with pulmonary SOLID WASTE TECHNICIAN recommending continued IV steroids and starting patient on azithromycin 500 mg daily secondary to persistent bronchospasms. -Oxygenation to be administered and titrated as needed to maintain SPO2 equal to or greater than 92% -Telemetry monitoring. -Monitor pulse-oximetry -Duonebs scheduled 4 times daily and as needed for SOB and/or wheezing -Incentive Spirometry -Steroids: Solu-Medrol 60 mg IV every 6 hours -Antibiotics: Azithromycin 500 mg daily -Continue Advair 1 puff twice daily, Singulair 10 mg nightly, and Dupilamab 300 mg subcu every 14 days Data and imaging reviewed: Vital signs reviewed. Blood pressure 118/77, heart rate 86, respiratory rate 17, temp 98.2 F, and SpO2 of 97% on room air. Morning labs reviewed. BMP showing chloride 110, bicarb 18, and anion gap of 8. Liver profile showing elevated AST of 64 and ALT of 101. Discussed with pulmonology SOLID WASTE TECHNICIAN, patient regressing and lungs are again very tight/diminished and bronchospasmic with coarse diffuse expiratory wheezes. Patient failing observation status requiring continued administration of IV steroids and scheduled DuoNeb treatments. Order placed for inpatient admission at this time. CODE STATUS: Full code DVT prophylaxis: Lovenox Anticipated discharge date: Pending clinical course. Anticipated discharge place: Home Patient was seen independently by Nurse Practitioner. This document was prepared using [email or web address] dictation software. Please allow for errors in student support services director while rare they do occur. .Andrea Ivory, SOLID WASTE TECHNICIAN rendered care for this patient independently, reviewed the findings and plan as documented in the note above. I did not physically speak with or examine the patient on this date. Objective - Vital Signs Vital signs: Vital Signs Temp 98.2 F 11/18/23 07:10 Pulse 86 11/18/23 07:10 Resp 17 11/18/23 07:10 BP 118/77 11/18/23 07:10 Pulse Ox 97 11/18/23 07:10 FiO2 Intake & Output 11/17/23 11/18/23 11/18/23 18:59 06:59 18:59 Other: Voiding Method Toilet # Voids 2 - Labs CBC & Chem 7: 11/19/23 04:33 11/19/23 04:33 Labs: Abnormal Lab Results - Last 24 Hours (Table) 11/18/23 Range/Units 02:56 Sodium 136 L (137-145) mmol/L Chloride 110 H (98-107) mmol/L Carbon Dioxide 18 L (22-30) mmol/L Glucose 127 H (74-99) mg/dL AST 64 H (14-36) U/L ALT 101 H (4-34) U/L
[2023-11-18] MEDS: BENZONATATE 100 MG CAP PO SCH (09:59)
[2023-11-18] MEDS: AZITHROMYCIN 500 MG TAB PO SCH (10:00)
--- NOTE | 2023-11-18 12:31 | P.PN ---
Subjective Progress Note Date: 11/18/23 33-year-old female well-known to our service. The patient has a history of severe persistent asthma. Recently, her asthma has been more active, she came into the emergency room, earlier this week, on Friday, for shortness of breath, chest tightness, cough, wheezing, etc. Apparently they treated there with breathing treatments, steroids, and magnesium, and discharged from the ER. On and Friday, her asthma seem to get worse again and finally it could not be controlled at home, so she came into the emergency room again, to be evaluated. She came in today, at 9:00 in the morning. She has been coughing, producing only small amount of phlegm. There is no fever or chills. She has been using all of her usual medications. She is typically on Ventolin, albuterol updrafts, Singulair, prednisone, Dupixent, and Advair Diskus. More recently, when she was in the emergency room, Friday, they gave her prednisone burst and taper, beginning with 50 mg. Typically she takes 5 mg daily. Her only other medical history is pneumonia. She does have a history of nasal polyps, and migraine cephalgia. The patient is seen today November 17, 2023 in follow-up on the regular medical floor. She is currently sitting up in bed. Awake and alert in no acute distress. She is breathing better today compared to yesterday. Still not quite back to her baseline. Still somewhat bronchospastic and wheezing. She is maintaining good O2 saturations in the 90s on room air. She is continued on DuoNeb inhalations, Pulmicort and Perforomist inhalations, Solu-Medrol and Singulair. No new labs today. Patient is seen today November 18, 2023 in follow-up on the regular medical floor. She is awake and alert in no acute distress. Sitting up in bed. Unfortunately she is feeling a bit worse today compared to yesterday. She is still somewhat bronchospastic and wheezing. Still with a loose cough. Sodium 136. Potassium 4.7. Bicarb 18. BUN 14. Creatinine 0.60. Glucose 127. She remains on DuoNeb inhalations, Pulmicort and Perforomist inhalations, IV Solu-Medrol, Singulair. Antibiotics in the form of azithromycin. Robitussin for her cough. Objective - Vital Signs Vital signs: Vital Signs Temp 98.2 F 11/18/23 07:10 Pulse 86 11/18/23 12:24 Resp 16 11/18/23 08:00 BP 118/77 11/18/23 07:10 Pulse Ox 97 11/18/23 07:10 FiO2 Intake & Output 11/17/23 11/18/23 11/18/23 18:59 06:59 18:59 Intake Total 118 Balance 118 Intake: Oral 118 Other: Voiding Method Toilet # Voids 2 3 # Bowel Movements 0 - Exam GENERAL EXAM: Alert, pleasant 33-year-old female, on room air, fairly comfortable in no apparent distress. HEAD: Normocephalic. EYES: Normal reaction of pupils, equal size. NOSE: Clear with pink turbinates. THROAT: No erythema or exudates. NECK: No masses, no JVD. CHEST: No chest wall deformity. LUNGS: Equal air entry with bilateral end expiratory wheeze. CVS: S1 and S2 normal with no audible murmur, regular rhythm. ABDOMEN: No hepatosplenomegaly, normal bowel sounds, no guarding or rigidity. SPINE: No scoliosis or deformity SKIN: No rashes CENTRAL NERVOUS SYSTEM: No focal deficits, tone is normal in all 4 extremities. EXTREMITIES: There is no peripheral edema. No clubbing, no cyanosis. Peripheral pulses are intact. - Labs CBC & Chem 7: 11/16/23 09:34 11/18/23 02:56 Labs: Abnormal Lab Results - Last 24 Hours (Table) 11/18/23 Range/Units 02:56 Sodium 136 L (137-145) mmol/L Chloride 110 H (98-107) mmol/L Carbon Dioxide 18 L (22-30) mmol/L Glucose 127 H (74-99) mg/dL AST 64 H (14-36) U/L ALT 101 H (4-34) U/L Assessment and Plan Assessment: Severe persistent asthma, with an acute asthma exacerbation. 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 History of migraine cephalgia. History of pneumonia. Prior episode of respiratory failure requiring intubation and mechanical ventilation. History of seasonal allergies. Plan: The patient was seen and evaluated Medications and labs reviewed Not quite ready for discharge Somewhat bronchospastic and wheezing Continue the current treatment plan Will continue to follow I have personally seen and examined the patient, performed the documentation and the assessment and plan as written. Number of minutes spent on the visit: 10.
[2023-11-19 08:04] VITALS: BP 123/78; RESP 12; TEMP 98.8
[2023-11-19 08:42] LABS: Basophils # (A) 0.03 X 10*3/uL (0.00-0.10); Basophils % (A) 0.1 %; Eosinophils # (A) 0 X 10*3/uL (0.04-0.35); Eosinophils % (A) 0 %; HCT 41.7 % (37.2-46.3); HGB 13.7 g/dL (12.0-15.0); Lymphocytes # (A) 1.02 X 10*3/uL (0.90-5.00); Lymphocytes % (A) 4.7 %; MCHC 32.9 g/dL (32.0-37.0); MCV 88.2 FL (80.0-97.0); Mean Platelet Volume 11.2 FL (9.5-12.2); NRBC Per 100 WBC 0 X 10*3/uL (0.00-0.01); Neutrophils # (A) 19.39 X 10*3/uL (1.80-7.70); Platelet Count 297 X 10*3/uL (140-440); RBC 4.73 X 10*6/uL (4.10-5.20); RDW 13.3 % (11.5-14.5)
[2023-11-19 08:56] LABS: ALT 88 U/L (8-44); AST 25 U/L (13-35); Albumin/Globulin Ratio 1.74 Ratio (1.60-3.17); Alkaline Phosphatase 45 U/L (41-126); Blood Urea Nitrogen 16.8 mg/dL (9.0-27.0); Calcium 8.9 mg/dL (8.7-10.3); Carbon Dioxide 23.2 mmol/L (21.6-31.8); Chloride 107 mmol/L (96-109); Globulin 2.3 g/dL (1.6-3.3); Glucose 133 mg/dL (70-110); Magnesium 2.2 mg/dL (1.5-2.4); Potassium 4.5 mmol/L (3.5-5.5); Sodium 140 mmol/L (135-145); Total Bilirubin 0.3 mg/dL (0.3-1.2); Total Protein 6.3 g/dL (6.2-8.2)
[2023-11-19] MEDS: predniSONE 20 MG TAB PO SCH (09:11)
[2023-11-19 09:52] VITALS: PULSE 82
--- NOTE | 2023-11-19 11:59 | P.PN ---
Subjective Progress Note Date: 11/19/23 33-year-old female well-known to our service. The patient has a history of severe persistent asthma. Recently, her asthma has been more active, she came into the emergency room, earlier this week, on Friday, for shortness of breath, chest tightness, cough, wheezing, etc. Apparently they treated there with breathing treatments, steroids, and magnesium, and discharged from the ER. On and Friday, her asthma seem to get worse again and finally it could not be controlled at home, so she came into the emergency room again, to be evaluated. She came in today, at 9:00 in the morning. She has been coughing, producing only small amount of phlegm. There is no fever or chills. She has been using all of her usual medications. She is typically on Ventolin, albuterol updrafts, Singulair, prednisone, Dupixent, and Advair Diskus. More recently, when she was in the emergency room, Friday, they gave her prednisone burst and taper, beginning with 50 mg. Typically she takes 5 mg daily. Her only other medical history is pneumonia. She does have a history of nasal polyps, and migraine cephalgia. The patient is seen today November 17, 2023 in follow-up on the regular medical floor. She is currently sitting up in bed. Awake and alert in no acute distress. She is breathing better today compared to yesterday. Still not quite back to her baseline. Still somewhat bronchospastic and wheezing. She is maintaining good O2 saturations in the 90s on room air. She is continued on DuoNeb inhalations, Pulmicort and Perforomist inhalations, Solu-Medrol and Singulair. No new labs today. Patient is seen today November 18, 2023 in follow-up on the regular medical floor. She is awake and alert in no acute distress. Sitting up in bed. Unfortunately she is feeling a bit worse today compared to yesterday. She is still somewhat bronchospastic and wheezing. Still with a loose cough. Sodium 136. Potassium 4.7. Bicarb 18. BUN 14. Creatinine 0.60. Glucose 127. She remains on DuoNeb inhalations, Pulmicort and Perforomist inhalations, IV Solu-Medrol, Singulair. Antibiotics in the form of azithromycin. Robitussin for her cough. The patient is seen today November 19, 2023 in follow-up on the regular medical floor. She is awake and alert in no acute distress. Continues to maintain good O2 saturations in the 90s on room air. She is feeling better and nearly back to her baseline. Less bronchospastic and wheezing. She remains on DuoNeb inhalations, Pulmicort and Perforomist inhalations, IV Solu-Medrol, Singulair. White count 21.8. Hemoglobin 13.7. Platelets 297. Sodium 140. Potassium 4.5. Bicarb 23. BUN 17. Creatinine 0.7. Glucose 133. Objective - Vital Signs Vital signs: Vital Signs Temp 98.8 F 11/19/23 07:00 Pulse 82 11/19/23 09:51 Resp 12 11/19/23 07:00 BP 123/78 11/19/23 07:00 Pulse Ox 96 11/19/23 09:30 FiO2 Intake & Output 11/18/23 11/19/23 11/19/23 18:59 06:59 18:59 Intake Total 338 Balance 338 Intake: Oral 338 Other: # Voids 6 0 # Bowel Movements 0 - Exam GENERAL EXAM: Alert, pleasant 33-year-old female, resting in bed, on room air, comfortable in no apparent distress. HEAD: Normocephalic. EYES: Normal reaction of pupils, equal size. NOSE: Clear with pink turbinates. THROAT: No erythema or exudates. NECK: No masses, no JVD. CHEST: No chest wall deformity. LUNGS: Equal air entry with faint bilateral end expiratory wheeze. CVS: S1 and S2 normal with no audible murmur, regular rhythm. ABDOMEN: No hepatosplenomegaly, normal bowel sounds, no guarding or rigidity. SPINE: No scoliosis or deformity SKIN: No rashes CENTRAL NERVOUS SYSTEM: No focal deficits, tone is normal in all 4 extremities. EXTREMITIES: There is no peripheral edema. No clubbing, no cyanosis. Tata pheral pulses are intact. - Labs CBC & Chem 7: 11/19/23 04:33 11/19/23 04:33 Labs: Abnormal Lab Results - Last 24 Hours (Table) 11/19/23 11/19/23 Range/Units 04:33 04:33 WBC 21.80 H (4.50-10.00) X 10*3/uL Immature Gran # 0.26 H (0.00-0.04) X 10*3/uL Neutrophils # 19.39 H (1.80-7.70) X 10*3/uL Monocytes # 1.10 H (0.20-1.00) X 10*3/uL Eosinophils # 0 L (0.04-0.35) X 10*3/uL BUN/Creatinine Ratio 24.00 H (12.00-20.00) Ratio Glucose 133 H (70-110) mg/dL ALT 88 H (8-44) U/L Assessment and Plan Assessment: Severe persistent asthma, with an acute asthma exacerbation. 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 History of migraine cephalgia. History of pneumonia. Prior episode of respiratory failure requiring intubation and mechanical ventilation. History of seasonal allergies. Plan: The patient was seen and evaluated Medications and labs reviewed Cleared for discharge Complete a prednisone taper Complete a short course of antibiotics Continue her home pulmonary medications Continue her Dupixent Follow-up in our office in 1 week I have personally seen and examined the patient, performed the documentation and the assessment and plan as written. Number of minutes spent on the visit: 10.
--- NOTE | 2023-11-19 13:47 | P.DS ---
Providers Date of admission: 11/18/23 08:52 Expected date of discharge: 11/19/23 Attending physician: Luann Capps MD Consults: 11/16/23 12:03 Consult Physician Routine Consulting Provider: Nelson Diego Consult Reason/Comments: asthma exacerbation, follows per hx of intubation x3 d/t asthma exacer Do you want consulting provider notified?: Yes Primary care physician: Stated None Hospital Course: Discharge Diagnosis: Acute respiratory distress, secondary to asthma exacerbation Severe persistent asthma with acute exacerbation Leukocytosis with elevated eosinophil count, secondary to above History of previous intubations secondary to asthma exacerbation Hospital course: Patient is a very pleasant 33-year-old female with a past medical history of moderate persistent asthma sinus polyps status post removal, and tubal ligation. She reports her laboratory asst is Dr. Christina and has a history of needing for intubation x 3 events due to asthma exacerbations in the past. She presented to the emergency department with a chief complaint of shortness of breath. Patient reports despite use of home inhalers she has had difficulties controlling her asthma over the past week. She had 1 ER visit on 11/12/2023 and was provided with IV steroids and nebulizer treatments and later discharged home. Patient reports today symptoms again exacerbated and she was getting no air movement and again returned to the emergency department. She reports her shortness of breath is also associated with nonproductive course cough and denies having any fevers, chills, diaphoresis, chest pain, palpitations, nausea, vomiting, or experiencing any numbness/tingling/weakness/swelling in her extremities. Upon arrival to our facility, patient underwent evaluation in the emergency department. Vital signs upon arrival show blood pressure 133/76, heart rate 133, respiratory rate 28, temp 98.4 F, and SpO2 of 94% on room air. EKG was completed showing moderate interference but revealing sinus tachycardia at 115 bpm and no noted T wave or ST abnormalities upon personal review and interpretation. Chest x-ray was negative for acute cardiopulmonary process. Labs were completed and reviewed. CBC showing leukocytosis with WBC count of 13.8, eosinophils 3.17 with calculated eosinophil count of 4013. BMP showing mild hyperchloremia with chloride of 109 otherwise normal findings. Lactic acid 1.3. Glucose 87. Liver profile unremarkable. Magnesium 1.9. Blood hCG negative. Urinalysis and urine hCG also negative. Influenza A, influenza B, RSV, and COVID PCR negative. Patient was given terbutaline, magnesium, DuoNeb treatments, and 125 mg of Solu- Medrol in the emergency department. She was admitted under our services for acute asthma exacerbation with consultation to pulmonology. Patient was placed on IV steroids and received [id number] scheduled and as needed DuoNeb treatments. She underwent a 3 night hospitalization. Her respiratory status is much improved and she is medically stable for discharge at this time. Pulmonology evaluated also clearing patient from pulmonology perspective for discharge recommending discharging home on prolonged 16-day steroid taper. Patient is medically stable at this time and to follow-up outpatient with PCP in 1 to 2 days and with laboratory asst in 2 weeks. Physical exam: Vital signs reviewed and stable. General: Nontoxic, appears stated age. Mild distress secondary to increased respiratory effort Derm: Skin warm and dry, normal coloration for ethnicity. Head: Atraumatic, normocephalic and symmetric. Eyes: EOMs intact, no lid lag, and anicteric sclera Mouth: no lip lesions, mucus membranes moist Cardiovascular: Regular rate and rhythm, normal S1S2, no murmur, positive posterior tibial pulses bilaterally, and cap refill < 2 seconds. Lungs: Respirations even and regular with increased work of breathing.. Lungs with equal air movement, soft diffuse expiratory wheezes bilaterally. Abdominal: soft, nontender to palpation, no guarding, no appreciable organomegaly Ext: ROM intact. No gross muscle atrophy, no edema, no contractures Neuro: Speech clear, face symmetrical and CN II-XII grossly intact with no noted focal neuro deficits Psych: Alert and oriented to person, place, time, and situation. Appropriate and pleasant affect. A total of 33 minutes of time were spent preparing this complex discharge [facility]. Pt was discharged on 11/19/2023 at 9:57 AM. Patient was seen independently by Nurse Practitioner. This document was prepared using [employer] dictation software. 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 Andrea Ivory NP rendered care for this patient independently, reviewed the findings and plan as documented in the note above. I did not physically speak with or examine the patient on this date. Patient Condition at Discharge: Stable Plan - Discharge Summary New Discharge Prescriptions: New Ipratropium-Albuterol Nebulize [Duoneb 0.5 mg-3 mg/3 ml Soln] 3 ml INHALATION QID #120 each predniSONE See Taper PO DIRECTED 16 Days #40 tab Azithromycin [Zithromax] 500 mg PO DAILY 1 Days #1 tab Benzonatate [Tessalon Perles] 200 mg PO TID #21 cap Continue Albuterol Inhaler [Ventolin Hfa Inhaler] 2 puff INHALATION RT-Q4H PRN #1 puff PRN Reason: Shortness Of Breath Montelukast [Singulair] 10 mg PO HS #30 tab Fluticasone Propion/Salmeterol [Advair 500-50 Diskus] 1 puff INHALATION RT- DAILY Scopolamine [Scopolamine 1 MG/72 HR patch] 1 patch TRANSDERM Q72H PRN PRN Reason: cruise/motion sickness Dupilumab [Dupixent Pen] 300 mg SQ Q14D Discontinued predniSONE 25 mg PO BID Discharge Medication List Albuterol Inhaler [Ventolin Hfa Inhaler] 2 puff INHALATION RT-Q4H PRN #1 puff 02/26/17 [Rx] Montelukast [Singulair] 10 mg PO HS #30 tab 03/27/17 [Rx] Fluticasone Propion/Salmeterol [Advair 500-50 Diskus] 1 puff INHALATION RT-DAILY 05/13/22 [History] Dupilumab [Dupixent Pen] 300 mg SQ Q14D 11/16/23 [History] Scopolamine [Scopolamine 1 MG/72 HR patch] 1 patch TRANSDERM Q72H PRN 11/16/23 [History] Azithromycin [Zithromax] 500 mg PO DAILY 1 Days #1 tab 11/19/23 [Rx] Benzonatate [Tessalon Perles] 200 mg PO TID #21 cap 11/19/23 [Rx] Ipratropium-Albuterol Nebulize [Duoneb 0.5 mg-3 mg/3 ml Soln] 3 ml INHALATION QID #120 each 11/19/23 [Rx] predniSONE See Taper PO DIRECTED 16 Days #40 tab 11/19/23 [Rx] Follow up Appointment(s)/Referral(s): Bandar Henson MD [REFERRING] - 1 Week (Call office prior to discharge to schedule first available appointment for post hospitalization follow up and to establish care with PCP at residency clinic) Claudette Christina MD [STAFF PHYSICIAN] - 12/12/23 2:30 pm (Please keep previously made appointment) Patient Instructions/Handouts: Moderate and Severe Persistent Asthma (DC) Activity/Diet/Wound Care/Special Instructions: Activity: As tolerated. Take breaks as needed. Diet: Regular diet. Special Instructions: Take all of your medications as directed and remember to keep all of your doctor's appointments and follow-up as needed. Thank you for allowing us to participate in your care, it was truly a pleasure having you for our patient!!! . Discharge Disposition: HOME SELF-CARE
--- NOTE | 2023-12-15 14:17 | CDI ---
Documentation Clarification Form Date: 12/15/2023 01:47:36 PM From: Bhavana Duran RN, CCDS Phone: [phone] Admit Date: 11/18/2023 08:52:00 AM Patient Name: Ton Jason Visit Number: [id number] Discharge Date: 11/19/2023 11:40:00 AM ATTENTION: The Clinical Documentation Specialists (CDI) and [facility] Coding Staff appreciate your assistance in clarifying documentation. Please respond to the clarification below the line at the bottom and electronically sign. The CDI & [facility] Coding staff will review the response and follow-up if needed. Please note: Queries are made part of the Legal Health Record. If you have any questions, please contact the author of this message via ITS. Doctor Luann Capps, The patient had tachycardia and leukocytosis. Based on this information and the findings below, is there an additional diagnosis that is clinically appropriate for this patient? History/Risk Factors: moderate persistent asthma, previous intubations and sinus polyps. Presented with shortness of breath despite use of home inhalers and unable to control asthma at home. Admitted with acute asthma exacerbation. Clinical Indicators: H&P: "Acute respiratory distress. Moderate persistent asthma with acute exacerbation. Leukocytosis with elevated eosinophil count, secondary to above. EKG was completed showing moderate interference but revealing sinus tachycardia at 115 bpm." 11/15 WBC 13.8, Eosinophils 23 11/15 HR [id number] 11/15 RR 28-30-24 Treatment: Albuterol/Atrovent QID; Zithromax 500mg daily 11/17-11/18; Pulmicort BID 11/15-11/18; Brethine 0.25mg SC x1 on 11/15; 1L 0.9 NS IV bolus x1 on 11/15 Is there an additional diagnosis that is clinically appropriate for this patient? [ x ] Non-infectious SIRS without organ dysfunction [ ] No additional diagnosis/not clinically significant [ ] Other, please specify [ ] Unable to determine SIRS Criteria: 2 or more of the following may indicate SIRS Temperature < 96.8F (36C) or > 101.0F (38.3C) Heart Rate > 90 bpm Respiratory Rate > 20 breaths/min or PaCO2 < 32 mmHg White Blood Cell Count > 12,000 or < 4,000 cells/mm3 or > 10% bands MTDD
== END 2023-11-19 11:40 | disposition home or self-care (01) | DRG 202 ==
LOC: EC 08:48 → 4SSUR 11:11 → 6NMEDSUR 11-17 18:10 → OBSVTOIN 11-18 08:52
PROVIDERS: ADMIT Family Medicine; ATTEND Family Medicine
DX: J45.51 Severe persistent asthma with (acute) exacerbation (principal); R65.10 Systemic inflammatory response syndrome (SIRS) of non-infectious origin without acute organ dysfunction; E87.8 Other disorders of electrolyte and fluid balance, not elsewhere classified; Z28.311 Partially vaccinated for COVID-19; D72.829 Elevated white blood cell count, unspecified; R06.03 Acute respiratory distress; Z79.51 Long term (current) use of inhaled steroids; Z79.52 Long term (current) use of systemic steroids; Z79.899 Other long term (current) drug therapy; Z87.01 Personal history of pneumonia (recurrent); Z88.6 Allergy status to analgesic agent; Z88.1 Allergy status to other antibiotic agents; Z88.0 Allergy status to penicillin; Z88.2 Allergy status to sulfonamides; Z88.8 Allergy status to other drugs, medicaments and biological substances
CPT/HCPCS: 36415; 71046; 80053; 81003; 81025; 83605; 83735; 84484; 84703; 85008; 85025; 85379; 85610; 85730; 87636; 93005; 94640; 94760; 96365; 96372; 96375; 99285